=== PATIENT | male | born 1950 | race African-American/Black ===

== ENCOUNTER 2022-10-15 18:43 | Inpatient (IN) | payer OTHER, BC ==
[~2022-10-15] VITALS: Ht 188 cm; Wt 95.7 kg
[2022-10-15] MEDS ORDERED: KETOROLAC 30MG/ML VIAL IM ONE (19:30)
[2022-10-16] MEDS ORDERED: KETOROLAC 30MG/ML VIAL IM NR (00:45)
[2022-10-16] MEDS ORDERED: MORPHINE SULFATE 4 MG/ML CPJ (NOT FOR IM USE) IV NR (01:40)
[2022-10-16] MEDS ORDERED: ONDANSETRON HCL 4MG/2ML INJ IV NR (01:40)
[2022-10-16] MEDS ORDERED: SODIUM CHLORIDE 0.9% 1,000 ML IV NR (01:45)
[2022-10-16 03:33] LABS: BASOPHILS % 0.2 % (0.0-2.0); EOSINOPHILS % 0.8 % (0.0-5.0); HEMOGLOBIN. 14.9 g/dL (14.0-18.0); LYMPHOCYTES % 10.5 % (20.0-50.0); MEAN CORPUSCULAR HEMOGLOBIN 29.5 pg (28.0-32.0); MEAN PLATELET VOLUME 8.9 fl (7.4-10.4); MONOCYTES % 8.9 % (2.0-8.0); NEUTROPHILS % 79.6 % (40.0-76.0); PLATELET 306 x1000/uL (130-400); RED BLOOD CELL COUNT 5.05 mill/uL (4.7-6.1); RED CELL DISTRIBUTION WIDTH 13.9 % (11.6-14.6)
[2022-10-16 03:43] LABS: PROTHROMBIN TIME 10.7 sec (9.6-11.0)
[2022-10-16 04:05] LABS: CHLORIDE 107 mEq/L (98-107)
[2022-10-16] MEDS ORDERED: DEXTROSE 50% WATER 50ML SYRINGE IV PRN (04:15)
[2022-10-16] MEDS ORDERED: HYDROMORPHONE HCL/PF 2MG/ML CPJ IV PRN (04:15)
[2022-10-16] MEDS ORDERED: IPRATROPIUM/ALBUTEROL 0.5-3(2.5)MG/3ML NEB HHN PRN (04:15)
[2022-10-16] MEDS ORDERED: ACETAMINOPHEN 650MG SUPP PR PRN ×2 (04:15)
[2022-10-16] MEDS ORDERED: ONDANSETRON HCL 4MG/2ML INJ IV PRN (04:15)
[2022-10-16] MEDS ORDERED: NA PHOS,M-B/NA PHOS,DI-BA ENEMA 118ML PR PRN (04:15)
[2022-10-16] MEDS ORDERED: GUAIFENESIN 200MG/10ML SUGAR FREE UDC PO PRN (04:15)
[2022-10-16] MEDS ORDERED: HYDRALAZINE 20MG/ML VIAL IV PRN (04:15)
[2022-10-16 04:55] LABS: PHOSPHORUS 3.4 mg/dL (2.5-4.9)
[2022-10-16 05:09] LABS: T4 FREE 1.07 ng/dL (0.76-1.46)
[2022-10-16] MEDS ORDERED: MAGNESIUM 2 G PREMIX 50 ML IV NR ×2 (05:30→13:45)
[2022-10-16] MEDS: DEXT 5%/0.45% NACL 1000ML 1,000 ML IV SCH ×2 (05:32→18:42)
[2022-10-16 07:05] LABS: CLARITY URINE CLEAR (CLEAR); COLOR URINE YELLOW (YELLOW); KETONES URINE NEGATIVE (NEGATIVE); LEUKOCYTE ESTERASE URINE NEGATIVE (NEGATIVE); NITRITE URINE NEGATIVE (NEGATIVE); OCCULT BLOOD URINE 2+ (NEGATIVE); PROTEIN URINE 4+ (NEGATIVE); SPECIFIC GRAVITY URINE 1.027 (1.005-1.030); UROBILINOGEN URINE 0.2 E.U./dL (0.2-1.0)
[2022-10-16 07:26] LABS: *AMPHETAMINES SCREEN URINE NEGATIVE (NEGATIVE); *BARBITURATES SCREEN URINE NEGATIVE (NEGATIVE); *BENZODIAZEPINES SCREEN URINE NEGATIVE (NEGATIVE); *COCAINE SCREEN URINE NEGATIVE (NEGATIVE); CANNABINOID URINE SCREEN NEGATIVE (NEGATIVE); METHADONE URINE SCREEN NEGATIVE (NEGATIVE); OPIATES URINE SCREEN PRESUMTIVE POSITIVE (NEGATIVE); PHENCYCLIDINE URINE SCREEN NEGATIVE (NEGATIVE)
[2022-10-16] MEDS: INSULIN LISPRO 100 UNITS/ML SUBCUT SCH ×4 (08:20→21:00)
[2022-10-16] MEDS: FAMOTIDINE 20MG/2ML VIAL IV SCH (09:00)
[2022-10-16] MEDS: BLOOD SUGAR DIAGNOSTIC STRIP TEST SCH ×4 (09:00→21:32)
[2022-10-16 16:45] VITALS: BP 160/87
[2022-10-16] MEDS ORDERED: SODIUM CHLORIDE 0.45% 1,000 ML IV SCH (18:15)
[2022-10-16] MEDS ORDERED: INFLUENZA VACCINE 05/PF 0.5 ML SYRINGE IM ONE (19:45)
[2022-10-16 19:51] VITALS: BP 110/67
[2022-10-16 20:00] VITALS: BP 182/110
[2022-10-16] MEDS ORDERED: NALOXONE HCL 0.4MG/ML VIAL IV PRN (20:15)
[2022-10-16] MEDS: CARVEDILOL 12.5MG TABLET PO SCH ×2 (21:32→21:46)
[2022-10-16] MEDS: INSULIN GLARGINE 100 UNITS/ML SUBCUT SCH (22:00)
[2022-10-16] MEDS: HYDRALAZINE 10 MG in SODIUM CHLORIDE 0.9% 49.5 ML IV PRN (23:50)
[2022-10-17 01:19] VITALS: BP 174/94
[2022-10-17 04:00] VITALS: BP 160/93
[2022-10-17 06:00] VITALS: BP 138/76
[2022-10-17] MEDS: DEXT 5%/0.45% NACL 1000ML 1,000 ML IV SCH ×2 (06:05→21:43)
[2022-10-17] MEDS: BLOOD SUGAR DIAGNOSTIC STRIP TEST SCH ×4 (07:05→21:00)
[2022-10-17] MEDS: INSULIN LISPRO 100 UNITS/ML SUBCUT SCH ×7 (07:20→21:54)
[2022-10-17 07:54] LABS: HEMATOCRIT. 43.5 % (42.0-52.0); HEMOGLOBIN. 14.4 g/dL (14.0-18.0); MEAN CORPUSCULAR HEMOGLOBIN 29.2 pg (28.0-32.0); MEAN PLATELET VOLUME 9.7 fl (7.4-10.4); PLATELET 309 x1000/uL (130-400); RED BLOOD CELL COUNT 4.94 mill/uL (4.7-6.1); RED CELL DISTRIBUTION WIDTH 13.5 % (11.6-14.6)
[2022-10-17 08:00] VITALS: BP 192/113
[2022-10-17] MEDS: FAMOTIDINE 20MG/2ML VIAL IV SCH (10:11)
[2022-10-17] MEDS: CARVEDILOL 12.5MG TABLET PO SCH ×2 (10:12→21:00)
[2022-10-17] MEDS: HYDRALAZINE 10 MG in SODIUM CHLORIDE 0.9% 49.5 ML IV PRN (10:38)
[2022-10-17] MEDS ORDERED: HYDROMORPHONE HCL/PF 2MG/ML CPJ IV PRN ×2 (10:45→15:30)
[2022-10-17 12:00] VITALS: BP 198/101
[2022-10-17] MEDS ORDERED: INSULIN GLARGINE 100 UNITS/ML SUBCUT NR (13:00)
[2022-10-17] MEDS ORDERED: HYDRALAZINE 20MG/ML VIAL IV PRN (13:15)
[2022-10-17] MEDS: AMLODIPINE 10MG TABLET PO SCH (13:33)
[2022-10-17] MEDS: HYDRALAZINE HCL 100MG TABLET PO SCH ×3 (13:34→22:13)
[2022-10-17] MEDS ORDERED: EPINEPHRINE 1:1000 1 MG/ML AMP ONE (14:12)
[2022-10-17] MEDS ORDERED: MORPHINE SULFATE 10 MG/ML CPJ ONE (14:12)
[2022-10-17] MEDS ORDERED: KETOROLAC 30MG/ML VIAL ONE (14:12)
[2022-10-17] MEDS ORDERED: VANCOMYCIN HCL 1 GM/VIAL ONE (14:13)
[2022-10-17] MEDS ORDERED: SKIN ADHESIVE 0.7 GM EA TOP ONE (14:13)
[2022-10-17] MEDS ORDERED: BACITRACIN 15GM TUBE TOP ONE (14:13)
[2022-10-17] MEDS ORDERED: TRANEXAMIC ACID 1,000 MG/10 ML IV ONE (14:15)
[2022-10-17] MEDS ORDERED: ROPIVACAINE HCL 1% 20 ML VIAL EPI ONE (14:48)
[2022-10-17] MEDS ORDERED: TRANEXAMIC ACID 1,000 MG in SODIUM CHLORIDE 0.9% 100 ML IV NR ×2 (15:00→15:30)
[2022-10-17] MEDS ORDERED: PROPOFOL 200MG/20ML VIAL IV ONE (15:01)
[2022-10-17] MEDS ORDERED: MIDAZOLAM HCL 2 MG/2 ML VIAL ONE (15:07)
[2022-10-17] MEDS ORDERED: ONDANSETRON HCL 4MG/2ML INJ ONE (15:07)
[2022-10-17] MEDS ORDERED: FENTANYL CITRATE/PF 50MCG/ML 2ML VIAL ONE ×2 (15:08→16:27)
[2022-10-17] MEDS ORDERED: METOCLOPRAMIDE HCL 10MG/2ML VIAL ONE (15:10)
[2022-10-17] MEDS ORDERED: DEXAMETHASONE 4MG/ML 1ML VIAL ONE (15:10)
[2022-10-17] MEDS ORDERED: ATROPINE SULFATE 0.4MG/ML VIAL IV PRN (15:30)
[2022-10-17] MEDS ORDERED: FENTANYL CITRATE/PF 50MCG/ML 2ML VIAL IV PRN (15:30)
[2022-10-17] MEDS ORDERED: CEFAZOLIN 1000MG PREMIX 50 ML IV SCH (17:30)
[2022-10-17] MEDS ORDERED: KETOROLAC 30MG/ML VIAL IV PRN (17:30)
[2022-10-17] MEDS ORDERED: KETOROLAC 15MG/ML VIAL IV PRN (18:15)
[2022-10-17 18:34] LABS: PLATELET ESTIMATE NORMAL
[2022-10-17 20:17] VITALS: BP 148/77
[2022-10-17] MEDS: CEFAZOLIN 1000MG PREMIX 50 ML IV SCH (21:43)
[2022-10-17] MEDS: INSULIN GLARGINE 100 UNITS/ML SUBCUT SCH (21:53)
[2022-10-18 00:27] VITALS: BP 140/61
[2022-10-18 05:45] LABS: PHOSPHORUS 4.4 mg/dL (2.5-4.9)
[2022-10-18] MEDS: BLOOD SUGAR DIAGNOSTIC STRIP TEST SCH ×4 (07:20→20:36)
[2022-10-18] MEDS: INSULIN LISPRO 100 UNITS/ML SUBCUT SCH ×7 (07:50→20:36)
[2022-10-18 08:00] VITALS: BP 192/97
[2022-10-18] MEDS: CEFAZOLIN 1000MG PREMIX 50 ML IV SCH ×2 (08:42→20:17)
[2022-10-18] MEDS: FAMOTIDINE 20MG/2ML VIAL IV SCH (08:43)
[2022-10-18] MEDS: CARVEDILOL 12.5MG TABLET PO SCH ×2 (08:43→20:36)
[2022-10-18] MEDS: AMLODIPINE 10MG TABLET PO SCH ×2 (08:44→17:51)
[2022-10-18] MEDS: SODIUM CHLORIDE 0.45% 1,000 ML IV SCH ×2 (09:05→22:01)
[2022-10-18 09:14] LABS: CHLORIDE 108 mEq/L (98-107)
[2022-10-18] MEDS: HYDRALAZINE 10 MG in SODIUM CHLORIDE 0.9% 49.5 ML IV PRN ×2 (09:20→13:10)
[2022-10-18 11:24] LABS: HEMATOCRIT. 40.3 % (42.0-52.0); HEMOGLOBIN. 13.2 g/dL (14.0-18.0); MEAN CORPUSCULAR HEMOGLOBIN 29.7 pg (28.0-32.0); MEAN CORPUSCULAR VOLUME 90.9 fL (80.0-94.0); MEAN PLATELET VOLUME 9.7 fl (7.4-10.4); PLATELET 140 x1000/uL (130-400); RED BLOOD CELL COUNT 4.43 mill/uL (4.7-6.1); RED CELL DISTRIBUTION WIDTH 13.8 % (11.6-14.6)
[2022-10-18 12:00] VITALS: BP 132/73
[2022-10-18] MEDS: HYDROCODONE/ACETAMINOPHEN 5/325MG TABLET PO PRN ×2 (13:08→18:14)
[2022-10-18] MEDS: HYDRALAZINE HCL 100MG TABLET PO SCH ×2 (13:20→22:01)
[2022-10-18 14:25] LABS: PLATELET ESTIMATE NORMAL
[2022-10-18 16:00] VITALS: BP 128/66
[2022-10-18 20:10] VITALS: BP 140/79
[2022-10-18] MEDS: INSULIN GLARGINE 100 UNITS/ML SUBCUT SCH (22:00)
[2022-10-19] VITALS (8 sets, daily range): BP systolic 122–176; BP diastolic 65–90
[2022-10-19] MEDS: HYDRALAZINE HCL 100MG TABLET PO SCH ×3 (05:26→22:04)
[2022-10-19] MEDS: INSULIN LISPRO 100 UNITS/ML SUBCUT SCH ×6 (07:48→18:43)
[2022-10-19] MEDS: BLOOD SUGAR DIAGNOSTIC STRIP TEST SCH ×4 (07:48→21:48)
[2022-10-19] MEDS: CARVEDILOL 12.5MG TABLET PO SCH ×2 (08:29→19:59)
[2022-10-19] MEDS: FAMOTIDINE 20MG TABLET PO SCH (08:30)
[2022-10-19] MEDS: AMLODIPINE 10MG TABLET PO SCH ×2 (08:30→18:00)
[2022-10-19] MEDS: CEFAZOLIN 1000MG PREMIX 50 ML IV SCH ×2 (08:40→19:59)
[2022-10-19] MEDS: SODIUM CHLORIDE 0.45% 1,000 ML IV SCH (11:25)
[2022-10-19] MEDS: FUROSEMIDE 40MG TABLET PO SCH (12:55)
[2022-10-19] MEDS: INSULIN GLARGINE 100 UNITS/ML SUBCUT SCH (22:01)
[2022-10-20] VITALS: BP 135/61
[2022-10-20] MEDS: SODIUM CHLORIDE 0.45% 1,000 ML IV SCH ×2 (00:45→16:29)
[2022-10-20 04:00] VITALS: BP 147/69
[2022-10-20] MEDS: HYDRALAZINE HCL 100MG TABLET PO SCH ×2 (06:05→13:17)
[2022-10-20] MEDS: INSULIN LISPRO 100 UNITS/ML SUBCUT SCH ×6 (07:20→17:20)
[2022-10-20] MEDS: BLOOD SUGAR DIAGNOSTIC STRIP TEST SCH ×4 (07:54→21:43)
[2022-10-20 08:00] VITALS: BP 145/65
[2022-10-20] MEDS: AMLODIPINE 10MG TABLET PO SCH ×2 (09:56→18:12)
[2022-10-20] MEDS: FAMOTIDINE 20MG TABLET PO SCH (09:56)
[2022-10-20] MEDS: CARVEDILOL 12.5MG TABLET PO SCH ×2 (09:58→21:43)
[2022-10-20] MEDS: FUROSEMIDE 40MG TABLET PO SCH (09:58)
[2022-10-20 12:00] VITALS: BP 147/80
[2022-10-20 12:37] LABS: FOLIC ACID (FOLATE) SERUM 8.6 ng/mL (>5.38)
[2022-10-20 14:03] LABS: PHOSPHORUS 4.1 mg/dL (2.5-4.9)
[2022-10-20 15:27] LABS: HEMATOCRIT. 32.9 % (42.0-52.0); HEMOGLOBIN. 11.1 g/dL (14.0-18.0); MEAN CORPUSCULAR HEMOGLOBIN 29.4 pg (28.0-32.0); MEAN CORPUSCULAR VOLUME 87.3 fL (80.0-94.0); MEAN PLATELET VOLUME 9.5 fl (7.4-10.4); PLATELET 312 x1000/uL (130-400); RED BLOOD CELL COUNT 3.77 mill/uL (4.7-6.1); RED CELL DISTRIBUTION WIDTH 13.4 % (11.6-14.6)
[2022-10-20 16:00] VITALS: BP 142/70
[2022-10-20 20:00] VITALS: BP 157/74
[2022-10-20] MEDS: INSULIN GLARGINE 100 UNITS/ML SUBCUT SCH (22:00)
[2022-10-20 23:27] LABS: PLATELET ESTIMATE NORMAL
[2022-10-21] VITALS: BP 154/67
[2022-10-21] MEDS: HYDRALAZINE HCL 100MG TABLET PO SCH ×4 (00:44→23:49)
[2022-10-21 04:00] VITALS: BP 121/50
[2022-10-21] MEDS: SODIUM CHLORIDE 0.45% 1,000 ML IV SCH (04:26)
[2022-10-21] MEDS: INSULIN LISPRO 100 UNITS/ML SUBCUT SCH ×6 (07:20→18:33)
[2022-10-21 08:00] VITALS: BP 149/77
[2022-10-21 08:14] LABS: HEMATOCRIT. 35.2 % (42.0-52.0); HEMOGLOBIN. 11.8 g/dL (14.0-18.0); MEAN CORPUSCULAR HEMOGLOBIN 29.3 pg (28.0-32.0); MEAN CORPUSCULAR VOLUME 87.7 fL (80.0-94.0); MEAN PLATELET VOLUME 9.4 fl (7.4-10.4); PLATELET 343 x1000/uL (130-400); RED BLOOD CELL COUNT 4.01 mill/uL (4.7-6.1); RED CELL DISTRIBUTION WIDTH 13.1 % (11.6-14.6)
[2022-10-21] MEDS: BLOOD SUGAR DIAGNOSTIC STRIP TEST SCH ×4 (08:20→21:00)
[2022-10-21] MEDS: FAMOTIDINE 20MG TABLET PO SCH (09:23)
[2022-10-21] MEDS: AMLODIPINE 10MG TABLET PO SCH ×2 (09:24→18:05)
[2022-10-21] MEDS: FUROSEMIDE 40MG TABLET PO SCH (09:24)
[2022-10-21] MEDS: CARVEDILOL 12.5MG TABLET PO SCH ×2 (09:24→23:48)
[2022-10-21 12:00] VITALS: BP 137/66
[2022-10-21 13:23] LABS: PLATELET ESTIMATE NORMAL
[2022-10-21] MEDS: HYDROCODONE/ACETAMINOPHEN 5/325MG TABLET PO PRN (14:44)
[2022-10-21 16:00] VITALS: BP 120/51
[2022-10-21 20:00] VITALS: BP 165/85
[2022-10-21] MEDS: INSULIN GLARGINE 100 UNITS/ML SUBCUT SCH (23:51)
[2022-10-22] VITALS: BP 163/76
[2022-10-22 04:00] VITALS: BP 117/56
[2022-10-22 06:39] LABS: HEMATOCRIT. 31.7 % (42.0-52.0); HEMOGLOBIN. 10.8 g/dL (14.0-18.0); MEAN CORPUSCULAR HEMOGLOBIN 29.7 pg (28.0-32.0); MEAN CORPUSCULAR VOLUME 86.9 fL (80.0-94.0); MEAN PLATELET VOLUME 9.2 fl (7.4-10.4); PLATELET 370 x1000/uL (130-400); RED BLOOD CELL COUNT 3.64 mill/uL (4.7-6.1); RED CELL DISTRIBUTION WIDTH 13.2 % (11.6-14.6)
[2022-10-22] MEDS: HYDRALAZINE HCL 100MG TABLET PO SCH ×3 (06:48→21:03)
[2022-10-22] MEDS: BLOOD SUGAR DIAGNOSTIC STRIP TEST SCH ×4 (06:57→20:51)
[2022-10-22] MEDS: INSULIN LISPRO 100 UNITS/ML SUBCUT SCH ×6 (07:20→16:43)
[2022-10-22 08:00] VITALS: BP 125/59
[2022-10-22] MEDS: CARVEDILOL 12.5MG TABLET PO SCH ×2 (09:00→21:03)
[2022-10-22] MEDS: FUROSEMIDE 40MG TABLET PO SCH (10:26)
[2022-10-22] MEDS: FAMOTIDINE 20MG TABLET PO SCH (10:26)
[2022-10-22] MEDS: AMLODIPINE 10MG TABLET PO SCH ×2 (10:27→16:35)
[2022-10-22] MEDS: HYDROCODONE/ACETAMINOPHEN 5/325MG TABLET PO PRN (10:27)
[2022-10-22] MEDS ORDERED: SORBITOL 70% SOLN 30ML PO NR (11:45)
[2022-10-22 12:00] VITALS: BP 130/62
[2022-10-22] MEDS: ENOXAPARIN 30MG/0.3ML SYR SUBCUT SCH (12:55)
[2022-10-22] MEDS: DOCUSATE SODIUM 250MG CAPSULE PO SCH (12:55)
[2022-10-22 16:00] VITALS: BP 118/69
[2022-10-22] MEDS: INSULIN GLARGINE 100 UNITS/ML SUBCUT SCH (21:04)
[2022-10-22 21:54] LABS: PLATELET ESTIMATE NORMAL
[2022-10-23] MEDS: BLOOD SUGAR DIAGNOSTIC STRIP TEST SCH ×4 (06:47→20:59)
[2022-10-23] MEDS: HYDRALAZINE HCL 100MG TABLET PO SCH ×3 (06:48→21:03)
[2022-10-23] MEDS: INSULIN LISPRO 100 UNITS/ML SUBCUT SCH ×6 (07:20→21:04)
[2022-10-23 08:00] VITALS: BP 147/60
[2022-10-23 08:36] LABS: HEMATOCRIT. 32.7 % (42.0-52.0); HEMOGLOBIN. 10.7 g/dL (14.0-18.0); MEAN CORPUSCULAR HEMOGLOBIN 28.8 pg (28.0-32.0); MEAN PLATELET VOLUME 9.3 fl (7.4-10.4); PLATELET 403 x1000/uL (130-400); RED BLOOD CELL COUNT 3.72 mill/uL (4.7-6.1); RED CELL DISTRIBUTION WIDTH 13.3 % (11.6-14.6)
[2022-10-23 09:16] LABS: PHOSPHORUS 4.8 mg/dL (2.5-4.9)
[2022-10-23] MEDS: AMLODIPINE 10MG TABLET PO SCH ×2 (09:50→17:00)
[2022-10-23] MEDS: DOCUSATE SODIUM 250MG CAPSULE PO SCH (09:50)
[2022-10-23] MEDS: FUROSEMIDE 40MG TABLET PO SCH (09:50)
[2022-10-23] MEDS: FAMOTIDINE 20MG TABLET PO SCH (09:50)
[2022-10-23] MEDS: CYANOCOBALAMIN 100MCG TABLET PO SCH (09:50)
[2022-10-23] MEDS: CARVEDILOL 12.5MG TABLET PO SCH ×2 (09:56→21:03)
[2022-10-23 12:00] VITALS: BP 142/64
[2022-10-23] MEDS: ENOXAPARIN 30MG/0.3ML SYR SUBCUT SCH (12:00)
[2022-10-23] MEDS: SODIUM CHLORIDE 0.45% 1,000 ML IV SCH (13:45)
[2022-10-23 14:47] LABS: PLATELET ESTIMATE SLIGHTLY INCREASED
[2022-10-23 16:00] VITALS: BP 128/59
[2022-10-23 20:00] VITALS: BP 146/70
[2022-10-23] MEDS ORDERED: INSULIN GLARGINE 100 UNITS/ML SUBCUT SCH (22:00)
[2022-10-24] VITALS: BP 148/77
[2022-10-24] MEDS: SODIUM CHLORIDE 0.45% 1,000 ML IV SCH ×2 (03:05→16:25)
[2022-10-24 04:00] VITALS: BP 144/75
[2022-10-24] MEDS: HYDRALAZINE HCL 100MG TABLET PO SCH ×3 (06:04→21:10)
[2022-10-24] MEDS: INSULIN LISPRO 100 UNITS/ML SUBCUT SCH ×7 (06:40→21:00)
[2022-10-24] MEDS: BLOOD SUGAR DIAGNOSTIC STRIP TEST SCH ×4 (06:40→21:00)
[2022-10-24] MEDS: FAMOTIDINE 20MG TABLET PO SCH (09:01)
[2022-10-24] MEDS: CYANOCOBALAMIN 100MCG TABLET PO SCH (09:02)
[2022-10-24] MEDS: CARVEDILOL 12.5MG TABLET PO SCH ×2 (09:02→21:00)
[2022-10-24] MEDS: DOCUSATE SODIUM 250MG CAPSULE PO SCH (09:02)
[2022-10-24] MEDS: AMLODIPINE 10MG TABLET PO SCH ×2 (09:02→17:00)
[2022-10-24 12:00] VITALS: BP 148/65
[2022-10-24] MEDS: ENOXAPARIN 30MG/0.3ML SYR SUBCUT SCH (12:00)
[2022-10-24 12:42] LABS: HEMATOCRIT. 30.7 % (42.0-52.0); HEMOGLOBIN. 10.1 g/dL (14.0-18.0); MEAN CORPUSCULAR HEMOGLOBIN 28.9 pg (28.0-32.0); MEAN CORPUSCULAR VOLUME 87.5 fL (80.0-94.0); PLATELET 442 x1000/uL (130-400); RED CELL DISTRIBUTION WIDTH 13.1 % (11.6-14.6)
[2022-10-24 13:49] LABS: PLATELET ESTIMATE INCREASED
[2022-10-24 16:00] VITALS: BP 152/81
[2022-10-24 20:00] VITALS: BP 112/62
[2022-10-24] MEDS ORDERED: INSULIN GLARGINE 100 UNITS/ML SUBCUT SCH (22:00)
[2022-10-24] MEDS ORDERED: LACTULOSE 20G/30ML UDC PO PRN (23:00)
[2022-10-25] VITALS: BP 128/64
[2022-10-25] MEDS: SODIUM CHLORIDE 0.45% 1,000 ML IV SCH ×2 (05:45→18:06)
[2022-10-25] MEDS: HYDRALAZINE HCL 100MG TABLET PO SCH ×3 (06:46→21:02)
[2022-10-25] MEDS: INSULIN LISPRO 100 UNITS/ML SUBCUT SCH ×6 (06:53→18:08)
[2022-10-25] MEDS: BLOOD SUGAR DIAGNOSTIC STRIP TEST SCH ×4 (06:53→21:00)
[2022-10-25] MEDS: CYANOCOBALAMIN 100MCG TABLET PO SCH (07:50)
[2022-10-25 08:00] VITALS: BP 102/57
[2022-10-25 08:22] LABS: HEMATOCRIT. 30.8 % (42.0-52.0); HEMOGLOBIN. 10.2 g/dL (14.0-18.0); MEAN CORPUSCULAR HEMOGLOBIN 28.9 pg (28.0-32.0); MEAN CORPUSCULAR VOLUME 87.5 fL (80.0-94.0); MEAN PLATELET VOLUME 8.8 fl (7.4-10.4); PLATELET 445 x1000/uL (130-400); RED BLOOD CELL COUNT 3.52 mill/uL (4.7-6.1); RED CELL DISTRIBUTION WIDTH 13.1 % (11.6-14.6)
[2022-10-25] MEDS: AMLODIPINE 10MG TABLET PO SCH ×2 (09:00→17:43)
[2022-10-25] MEDS: CARVEDILOL 12.5MG TABLET PO SCH ×2 (09:00→21:02)
[2022-10-25] MEDS: FAMOTIDINE 20MG TABLET PO SCH (10:14)
[2022-10-25] MEDS: DOCUSATE SODIUM 250MG CAPSULE PO SCH (10:19)
[2022-10-25 12:00] VITALS: BP 130/57
[2022-10-25] MEDS: ENOXAPARIN 30MG/0.3ML SYR SUBCUT SCH (13:23)
[2022-10-25 16:00] VITALS: BP 127/58
[2022-10-25 17:48] LABS: PLATELET ESTIMATE INCREASED
[2022-10-25 20:00] VITALS: BP 150/76
[2022-10-25] MEDS ORDERED: INSULIN GLARGINE 100 UNITS/ML SUBCUT SCH (22:00)
[2022-10-25 22:11] LABS: PARTIAL THROMBOPLASTIN TIME 34.7 sec (23.4-31.0); PROTHROMBIN TIME 10.9 sec (9.6-11.0)
[2022-10-26] VITALS (15 sets, daily range): BP systolic 102–178; BP diastolic 47–87
[2022-10-26] MEDS: HYDRALAZINE HCL 100MG TABLET PO SCH ×3 (07:01→21:19)
[2022-10-26] MEDS: BLOOD SUGAR DIAGNOSTIC STRIP TEST SCH ×4 (07:02→21:00)
[2022-10-26] MEDS: INSULIN LISPRO 100 UNITS/ML SUBCUT SCH ×6 (07:20→18:13)
[2022-10-26 07:42] LABS: HEMATOCRIT. 29.6 % (42.0-52.0); HEMOGLOBIN. 9.7 g/dL (14.0-18.0); MEAN PLATELET VOLUME 8.1 fl (7.4-10.4); PLATELET 460 x1000/uL (130-400); RED BLOOD CELL COUNT 3.36 mill/uL (4.7-6.1)
[2022-10-26] MEDS: CARVEDILOL 12.5MG TABLET PO SCH ×2 (09:00→21:19)
[2022-10-26] MEDS: CYANOCOBALAMIN 100MCG TABLET PO SCH (09:34)
[2022-10-26] MEDS: SODIUM CHLORIDE 0.45% 1,000 ML IV SCH ×2 (09:35→21:40)
[2022-10-26] MEDS: DOCUSATE SODIUM 250MG CAPSULE PO SCH (09:35)
[2022-10-26] MEDS: AMLODIPINE 10MG TABLET PO SCH ×3 (09:36→18:36)
[2022-10-26] MEDS: FAMOTIDINE 20MG TABLET PO SCH (09:36)
[2022-10-26] MEDS: ENOXAPARIN 30MG/0.3ML SYR SUBCUT SCH (12:56)
[2022-10-26] MEDS ORDERED: LIDOCAINE HCL/PF 1% 10 MG/ML 5ML VIAL ONE (13:01)
[2022-10-26 13:17] LABS: PLATELET ESTIMATE INCREASED
[2022-10-26 14:45] LABS: HEPATITIS B SURFACE ANTIGEN NEGATIVE
[2022-10-26 19:08] LABS: TOTAL IRON BINDING CAPACITY 157 ug/dL (250-450)
[2022-10-26] MEDS: INSULIN GLARGINE 100 UNITS/ML SUBCUT SCH (21:18)
[2022-10-27] VITALS (14 sets, daily range): BP systolic 120–161; BP diastolic 51–80
[2022-10-27] MEDS: BLOOD SUGAR DIAGNOSTIC STRIP TEST SCH ×4 (06:36→20:34)
[2022-10-27] MEDS: HYDRALAZINE HCL 100MG TABLET PO SCH ×3 (06:45→22:10)
[2022-10-27] MEDS: INSULIN LISPRO 100 UNITS/ML SUBCUT SCH ×6 (06:47→18:14)
[2022-10-27 08:12] LABS: HEMATOCRIT. 27.8 % (42.0-52.0); HEMOGLOBIN. 9.4 g/dL (14.0-18.0); MEAN CORPUSCULAR HEMOGLOBIN 29.6 pg (28.0-32.0); MEAN CORPUSCULAR VOLUME 87.1 fL (80.0-94.0); MEAN PLATELET VOLUME 9.1 fl (7.4-10.4); PLATELET 431 x1000/uL (130-400); RED BLOOD CELL COUNT 3.19 mill/uL (4.7-6.1); RED CELL DISTRIBUTION WIDTH 13.2 % (11.6-14.6)
[2022-10-27] MEDS: FAMOTIDINE 20MG TABLET PO SCH (08:40)
[2022-10-27] MEDS: CYANOCOBALAMIN 1000MCG TABLET PO SCH (08:40)
[2022-10-27] MEDS: DOCUSATE SODIUM 250MG CAPSULE PO SCH (08:41)
[2022-10-27] MEDS: CARVEDILOL 12.5MG TABLET PO SCH ×2 (08:48→20:27)
[2022-10-27] MEDS: AMLODIPINE 10MG TABLET PO SCH ×2 (08:48→18:06)
[2022-10-27] MEDS: SODIUM CHLORIDE 0.45% 1,000 ML IV SCH (11:05)
[2022-10-27] MEDS: ENOXAPARIN 30MG/0.3ML SYR SUBCUT SCH (12:44)
[2022-10-27 18:06] LABS: PLATELET ESTIMATE INCREASED
[2022-10-27] MEDS: INSULIN GLARGINE 100 UNITS/ML SUBCUT SCH (22:10)
[2022-10-28] VITALS: BP 114/50
[2022-10-28] MEDS: SODIUM CHLORIDE 0.45% 1,000 ML IV SCH ×2 (01:23→13:45)
[2022-10-28 04:00] VITALS: BP 117/49
[2022-10-28] MEDS: HYDRALAZINE HCL 100MG TABLET PO SCH ×3 (06:00→21:35)
[2022-10-28] MEDS: INSULIN LISPRO 100 UNITS/ML SUBCUT SCH ×6 (07:20→18:26)
[2022-10-28 07:56] LABS: HEMATOCRIT. 26.8 % (42.0-52.0); HEMOGLOBIN. 9.2 g/dL (14.0-18.0); MEAN CORPUSCULAR HEMOGLOBIN 29.6 pg (28.0-32.0); MEAN CORPUSCULAR VOLUME 86.6 fL (80.0-94.0); PLATELET 410 x1000/uL (130-400); RED BLOOD CELL COUNT 3.09 mill/uL (4.7-6.1); RED CELL DISTRIBUTION WIDTH 12.8 % (11.6-14.6)
[2022-10-28 08:00] VITALS: BP 132/63
[2022-10-28] MEDS: BLOOD SUGAR DIAGNOSTIC STRIP TEST SCH ×4 (08:06→20:54)
[2022-10-28] MEDS: CARVEDILOL 12.5MG TABLET PO SCH ×2 (09:00→20:50)
[2022-10-28] MEDS: AMLODIPINE 10MG TABLET PO SCH ×2 (09:00→18:22)
[2022-10-28] MEDS: DOCUSATE SODIUM 250MG CAPSULE PO SCH (09:06)
[2022-10-28] MEDS: FOLIC ACID/VITAMIN B COMP W-C TABLET PO SCH (09:06)
[2022-10-28] MEDS: CYANOCOBALAMIN 1000MCG TABLET PO SCH (09:06)
[2022-10-28] MEDS: FAMOTIDINE 20MG TABLET PO SCH (09:09)
[2022-10-28 12:00] VITALS: BP 143/62
[2022-10-28] MEDS: ENOXAPARIN 30MG/0.3ML SYR SUBCUT SCH (12:00)
[2022-10-28 15:04] LABS: PLATELET ESTIMATE SLIGHTLY INCREASED
[2022-10-28 16:00] VITALS: BP 164/76
[2022-10-28 20:00] VITALS: BP 145/81
[2022-10-28] MEDS: INSULIN GLARGINE 100 UNITS/ML SUBCUT SCH (21:29)
[2022-10-29] VITALS: BP 138/55
[2022-10-29] MEDS: SODIUM CHLORIDE 0.45% 1,000 ML IV SCH (03:40)
[2022-10-29 04:00] VITALS: BP 148/69
[2022-10-29] MEDS: HYDRALAZINE HCL 100MG TABLET PO SCH ×3 (06:38→22:03)
[2022-10-29 07:19] LABS: HEMATOCRIT. 27.9 % (42.0-52.0); HEMOGLOBIN. 9.4 g/dL (14.0-18.0); MEAN CORPUSCULAR HEMOGLOBIN 29.3 pg (28.0-32.0); MEAN CORPUSCULAR VOLUME 87.1 fL (80.0-94.0); MEAN PLATELET VOLUME 8.6 fl (7.4-10.4); PLATELET 412 x1000/uL (130-400); RED BLOOD CELL COUNT 3.21 mill/uL (4.7-6.1); RED CELL DISTRIBUTION WIDTH 13.1 % (11.6-14.6)
[2022-10-29] MEDS: INSULIN LISPRO 100 UNITS/ML SUBCUT SCH ×6 (07:20→17:45)
[2022-10-29] MEDS: BLOOD SUGAR DIAGNOSTIC STRIP TEST SCH ×4 (07:20→21:00)
[2022-10-29 08:00] VITALS: BP 134/71
[2022-10-29 08:06] LABS: PHOSPHORUS 3.7 mg/dL (2.5-4.9)
[2022-10-29] MEDS: CARVEDILOL 12.5MG TABLET PO SCH ×2 (09:00→22:07)
[2022-10-29] MEDS: FOLIC ACID/VITAMIN B COMP W-C TABLET PO SCH (09:09)
[2022-10-29] MEDS: DOCUSATE SODIUM 250MG CAPSULE PO SCH (09:11)
[2022-10-29] MEDS: AMLODIPINE 10MG TABLET PO SCH ×2 (09:11→17:44)
[2022-10-29] MEDS: FAMOTIDINE 20MG TABLET PO SCH (09:11)
[2022-10-29] MEDS: CYANOCOBALAMIN 1000MCG TABLET PO SCH (09:12)
[2022-10-29 12:00] VITALS: BP 152/74
[2022-10-29] MEDS: ENOXAPARIN 30MG/0.3ML SYR SUBCUT SCH (13:11)
[2022-10-29 14:47] LABS: PLATELET ESTIMATE INCREASED
[2022-10-29 16:00] VITALS: BP 157/91
[2022-10-29 20:00] VITALS: BP 173/75
[2022-10-29] MEDS: INSULIN GLARGINE 100 UNITS/ML SUBCUT SCH (22:04)
[2022-10-30] VITALS (7 sets, daily range): BP systolic 122–155; BP diastolic 52–68
[2022-10-30] MEDS: HYDRALAZINE HCL 100MG TABLET PO SCH ×3 (06:25→21:16)
[2022-10-30] MEDS: INSULIN LISPRO 100 UNITS/ML SUBCUT SCH ×6 (07:20→18:49)
[2022-10-30] MEDS: BLOOD SUGAR DIAGNOSTIC STRIP TEST SCH ×4 (07:21→21:17)
[2022-10-30] MEDS: CARVEDILOL 12.5MG TABLET PO SCH ×2 (09:26→21:33)
[2022-10-30] MEDS: DOCUSATE SODIUM 250MG CAPSULE PO SCH (09:26)
[2022-10-30] MEDS: FOLIC ACID/VITAMIN B COMP W-C TABLET PO SCH (09:27)
[2022-10-30] MEDS: FAMOTIDINE 20MG TABLET PO SCH (09:27)
[2022-10-30] MEDS: CYANOCOBALAMIN 1000MCG TABLET PO SCH (09:27)
[2022-10-30] MEDS: AMLODIPINE 10MG TABLET PO SCH ×2 (09:27→18:45)
[2022-10-30] MEDS: ENOXAPARIN 30MG/0.3ML SYR SUBCUT SCH (14:04)
[2022-10-30] MEDS: INSULIN GLARGINE 100 UNITS/ML SUBCUT SCH (21:38)
== END 2022-10-30 22:48 | DRG 521 ==
LOC: ER 18:43 → 6EST 10-16 02:23 → EDBEDREQTM 10-16 02:27 → EDBEDREQ 10-16 02:27 → ENRESERV 10-16 15:51 → 6EST 10-18 10:46
PROVIDERS: ADMIT Hospitalist; ATTEND Hospitalist
PROC: 0SRS01A Replacement of Left Hip Joint, Femoral Surface with Metal Synthetic Substitute, Uncemented, Open Approach (ICD-10-PCS; principal; 2022-10-17)
PROC: 4A00X4Z Measurement of Central Nervous Electrical Activity, External Approach (ICD-10-PCS; 2022-10-24)
PROC: 02H633Z Insertion of Infusion Device into Right Atrium, Percutaneous Approach (ICD-10-PCS; 2022-10-26)
PROC: B548ZZA Ultrasonography of Superior Vena Cava, Guidance (ICD-10-PCS; 2022-10-26)
PROC: 5A1D70Z Performance of Urinary Filtration, Intermittent, Less than 6 Hours Per Day (ICD-10-PCS; 2022-10-26)
PROC: 5A1D70Z Performance of Urinary Filtration, Intermittent, Less than 6 Hours Per Day (ICD-10-PCS; 2022-10-27)
DX: S72.002A Fracture of unspecified part of neck of left femur, initial encounter for closed fracture (principal); N18.6 End stage renal disease; E46 Unspecified protein-calorie malnutrition; N17.9 Acute kidney failure, unspecified; I50.32 Chronic diastolic (congestive) heart failure; N25.81 Secondary hyperparathyroidism of renal origin; G93.40 Encephalopathy, unspecified; I13.2 Hypertensive heart and chronic kidney disease with heart failure and with stage 5 chronic kidney disease, or end stage renal disease; H33.20 Serous retinal detachment, unspecified eye; K56.7 Ileus, unspecified; E83.42 Hypomagnesemia; Z20.822 Contact with and (suspected) exposure to COVID-19; I16.0 Hypertensive urgency; E11.65 Type 2 diabetes mellitus with hyperglycemia; E87.5 Hyperkalemia; E11.22 Type 2 diabetes mellitus with diabetic chronic kidney disease; E78.5 Hyperlipidemia, unspecified; Z99.2 Dependence on renal dialysis; Z90.79 Acquired absence of other genital organ(s); Z68.27 Body mass index [BMI] 27.0-27.9, adult; Z83.3 Family history of diabetes mellitus; Z82.49 Family history of ischemic heart disease and other diseases of the circulatory system; Z91.199 Patient's noncompliance with other medical treatment and regimen due to unspecified reason; W01.0XXA Fall on same level from slipping, tripping and stumbling without subsequent striking against object, initial encounter; Y93.89 Activity, other specified; Y92.009 Unspecified place in unspecified non-institutional (private) residence as the place of occurrence of the external cause; Y99.8 Other external cause status; D63.1 Anemia in chronic kidney disease; D72.825 Bandemia; E11.649 Type 2 diabetes mellitus with hypoglycemia without coma; G89.29 Other chronic pain; R04.0 Epistaxis; Z80.42 Family history of malignant neoplasm of prostate; Z85.46 Personal history of malignant neoplasm of prostate
CPT/HCPCS: 36415; 36556; 71045; 72170; 73502; 73552; 74018; 76937; 80048; 80053; 80061; 80305; 81003; 82306; 82533; 82570; 82607; 82746; 82962; 83036; 83540; 83550; 83735; 83935; 83970; 84100; 84134; 84300; 84439; 84443; 84484; 85025; 86705; 86709; 86803; 86850; 86900; 87340; 87426; 88311; 90935; 93005; 93306; 93970; 95816; 97110; 97116; 97162; 97166; 97530; 97535; 99285; C1752; C1893; C9803; J0360; J0690; J1100; J1170; J1642; J1650; J1815; J1885; J2250; J2270; J2405; J2704; J2765; J2795; J3010; J3370; J3475; J3490; J7030; J7050; C1776

== ENCOUNTER 2022-11-13 03:26 | Inpatient (IN) | payer OTHER, BC ==
[~2022-11-13] VITALS: Ht 188 cm; Wt 104.3 kg
[2022-11-13] VITALS (15 sets, daily range): BP systolic 116–186; BP diastolic 67–80
[2022-11-13] MEDS ORDERED: FUROSEMIDE 40MG/4ML VIAL IVP NR (05:30)
[2022-11-13 05:43] LABS: HEMOGLOBIN. 8.9 g/dL (14.0-18.0); MEAN CORPUSCULAR HEMOGLOBIN 29.1 pg (28.0-32.0); MEAN CORPUSCULAR VOLUME 88.2 fL (80.0-94.0); MEAN PLATELET VOLUME 8.5 fl (7.4-10.4); PLATELET 485 x1000/uL (130-400); RED BLOOD CELL COUNT 3.07 mill/uL (4.7-6.1); RED CELL DISTRIBUTION WIDTH 14.3 % (11.6-14.6)
[2022-11-13 05:57] LABS: CHLORIDE 101 mEq/L (98-107)
[2022-11-13] MEDS ORDERED: INSULIN REGULAR (HUMULIN R) 300UNITS/3ML VIAL IV NR (08:15)
[2022-11-13] MEDS ORDERED: SODIUM BICARBONATE 8.4% 1 MEQ/ML 50ML SYR IV NR (08:15)
[2022-11-13] MEDS ORDERED: DEXTROSE 50% WATER 50ML SYRINGE IV NR (08:15)
[2022-11-13] MEDS ORDERED: ALBUTEROL (0.083%) 2.5MG/3ML NEB HHN NR (08:15)
[2022-11-13 09:02] LABS: NUCLEATED RED BLOOD CELLS 1 /100 WBC; PLATELET ESTIMATE INCREASED
[2022-11-13] MEDS ORDERED: CALCIUM GLUCONATE 100MG/ML 10ML VIAL IV NR (09:58)
[2022-11-13] MEDS ORDERED: CEFTRIAXONE 1 G PREMIX 50 ML IV NR (10:00)
[2022-11-13] MEDS ORDERED: AZITHROMYCIN 500MG/250ML 250 ML IV NR (10:30)
[2022-11-13] MEDS ORDERED: GUAIFENESIN 200MG/10ML SUGAR FREE UDC PO PRN (12:15)
[2022-11-13] MEDS ORDERED: ACETAMINOPHEN 325MG TABLET PO PRN (12:15)
[2022-11-13] MEDS ORDERED: CLONIDINE 0.1MG TABLET PO PRN (12:15)
[2022-11-13] MEDS ORDERED: MAGNESIUM/ALUMINUM HYDROXIDE/SIMETHICONE 30ML UDC PO PRN (12:15)
[2022-11-13] MEDS ORDERED: TRAMADOL 50MG TABLET PO PRN (12:15)
[2022-11-13] MEDS ORDERED: DOCUSATE SODIUM 100MG CAPSULE PO PRN (12:15)
[2022-11-13] MEDS ORDERED: ONDANSETRON HCL 4MG/2ML INJ IV PRN (12:15)
[2022-11-13] MEDS ORDERED: NALOXONE HCL 0.4MG/ML VIAL IV PRN (12:30)
[2022-11-13 12:51] LABS: PROTHROMBIN TIME 10.8 sec (9.6-11.0)
[2022-11-13] MEDS ORDERED: DEXTROSE 50% WATER 50ML SYRINGE IV PRN (15:00)
[2022-11-13] MEDS: BLOOD SUGAR DIAGNOSTIC STRIP TEST SCH ×2 (17:08→20:39)
[2022-11-13] MEDS ORDERED: INSULIN LISPRO 100 UNITS/ML SUBCUT SCH (17:10)
[2022-11-13] MEDS: ENOXAPARIN 30MG/0.3ML SYR SUBCUT SCH (17:39)
[2022-11-13] MEDS ORDERED: ALBUMIN HUMAN 25GM/100ML (25%) IV NR (19:00)
[2022-11-13] MEDS: HYDRALAZINE HCL 50MG TABLET PO SCH (21:13)
[2022-11-13] MEDS: INSULIN GLARGINE 100 UNITS/ML SUBCUT SCH (21:14)
[2022-11-14] VITALS (19 sets, daily range): BP systolic 126–158; BP diastolic 63–84
[2022-11-14 04:26] LABS: HEMATOCRIT. 25.3 % (42.0-52.0); HEMOGLOBIN. 8.5 g/dL (14.0-18.0); MEAN CORPUSCULAR VOLUME 86.8 fL (80.0-94.0); MEAN PLATELET VOLUME 8.4 fl (7.4-10.4); PLATELET 466 x1000/uL (130-400); RED BLOOD CELL COUNT 2.92 mill/uL (4.7-6.1); RED CELL DISTRIBUTION WIDTH 14.5 % (11.6-14.6)
[2022-11-14 04:28] LABS: CHLORIDE 104 mEq/L (98-107)
[2022-11-14 04:39] LABS: HDL CHOLESTEROL 46 mg/dL (40-59); LDL CHOLESTEROL 29 mg/dL (5-100); PHOSPHORUS 5.1 mg/dL (2.5-4.9); TOTAL IRON BINDING CAPACITY 217 ug/dL (250-450)
[2022-11-14 05:13] LABS: PLATELET ESTIMATE NORMAL
[2022-11-14] MEDS: INSULIN LISPRO 100 UNITS/ML SUBCUT SCH ×4 (05:51→18:59)
[2022-11-14] MEDS: HYDRALAZINE HCL 50MG TABLET PO SCH ×3 (05:51→22:45)
[2022-11-14] MEDS: BLOOD SUGAR DIAGNOSTIC STRIP TEST SCH ×4 (05:52→21:00)
[2022-11-14] MEDS: INSULIN LISPRO (LOW DOSE) 100 UNITS/ML SUBCUT SCH ×3 (05:52→16:40)
[2022-11-14] MEDS ORDERED: INSULIN LISPRO 100 UNITS/ML SUBCUT SCH (06:40)
[2022-11-14] MEDS ORDERED: INFLUENZA VACCINE 05/PF 0.5 ML SYRINGE IM ONE (09:00)
[2022-11-14] MEDS ORDERED: CEFTRIAXONE 1,000 MG in DEXTROSE 5% WATER 50 ML IV SCH (09:00)
[2022-11-14] MEDS: AZITHROMYCIN 500 MG in DEXT 5% WATER 250 ML IV SCH (09:40)
[2022-11-14] MEDS: FUROSEMIDE 40MG/4 ML UDC PO SCH (09:40)
[2022-11-14] MEDS: FOLIC ACID/VITAMIN B COMP W-C TABLET PO SCH (09:40)
[2022-11-14] MEDS: AMLODIPINE 10MG TABLET PO SCH (09:40)
[2022-11-14] MEDS: CEFTRIAXONE 1,000 MG in DEXTROSE 5% WATER 50 ML IV SCH (09:40)
[2022-11-14] MEDS ORDERED: AZITHROMYCIN 500 MG in DEXT 5% WATER 250 ML IV SCH (10:00)
[2022-11-14] MEDS ORDERED: NEPVIT MT (12:57)
[2022-11-14] MEDS ORDERED: ATOR20TA65 MT (12:57)
[2022-11-14] MEDS ORDERED: INSU200I4 SQ (12:57)
[2022-11-14] MEDS ORDERED: CLON0.1T PO (12:57)
[2022-11-14] MEDS ORDERED: HYDR100T26 MT (12:57)
[2022-11-14] MEDS ORDERED: AMLO10TA80 MT (12:57)
[2022-11-14] MEDS ORDERED: FURO40TA5 MT (12:57)
[2022-11-14] MEDS ORDERED: CARV25TA47 MT (12:57)
[2022-11-14] MEDS ORDERED: INSU100I51 (12:57)
[2022-11-14] MEDS ORDERED: DOCU-138 MT (12:57)
[2022-11-14] MEDS: ENOXAPARIN 30MG/0.3ML SYR SUBCUT SCH (15:12)
[2022-11-14] MEDS: CALCIUM ACETATE 667MG CAPSULE PO SCH ×2 (15:12→18:51)
[2022-11-14] MEDS: FERROUS SULFATE 325MG TABLET PO SCH ×2 (15:13→18:51)
[2022-11-14] MEDS: INSULIN GLARGINE 100 UNITS/ML SUBCUT SCH (22:46)
[2022-11-15] VITALS: BP 152/73
[2022-11-15 04:00] VITALS: BP 155/75
[2022-11-15] MEDS: BLOOD SUGAR DIAGNOSTIC STRIP TEST SCH ×4 (05:44→21:00)
[2022-11-15] MEDS: HYDRALAZINE HCL 50MG TABLET PO SCH ×3 (06:00→21:14)
[2022-11-15] MEDS: INSULIN LISPRO (LOW DOSE) 100 UNITS/ML SUBCUT SCH ×4 (06:01→18:16)
[2022-11-15] MEDS: INSULIN LISPRO 100 UNITS/ML SUBCUT SCH ×3 (06:02→18:27)
[2022-11-15 08:00] VITALS: BP 147/70
[2022-11-15] MEDS ORDERED: FUROSEMIDE 40MG/4ML VIAL IVP NR (08:00)
[2022-11-15 08:13] LABS: HEMATOCRIT. 27.2 % (42.0-52.0); HEMOGLOBIN. 9.3 g/dL (14.0-18.0); MEAN CORPUSCULAR HEMOGLOBIN 29.8 pg (28.0-32.0); MEAN PLATELET VOLUME 9.2 fl (7.4-10.4); PLATELET 490 x1000/uL (130-400); RED BLOOD CELL COUNT 3.13 mill/uL (4.7-6.1); RED CELL DISTRIBUTION WIDTH 14.7 % (11.6-14.6)
[2022-11-15] MEDS: FERROUS SULFATE 325MG TABLET PO SCH ×3 (09:41→18:16)
[2022-11-15] MEDS: CALCIUM ACETATE 667MG CAPSULE PO SCH ×3 (09:41→18:13)
[2022-11-15] MEDS: AMLODIPINE 10MG TABLET PO SCH (09:41)
[2022-11-15] MEDS: FOLIC ACID/VITAMIN B COMP W-C TABLET PO SCH (09:41)
[2022-11-15] MEDS: FUROSEMIDE 40MG/4 ML UDC PO SCH (09:41)
[2022-11-15] MEDS: CEFTRIAXONE 1,000 MG in DEXTROSE 5% WATER 50 ML IV SCH (09:42)
[2022-11-15] MEDS: AZITHROMYCIN 500 MG in DEXT 5% WATER 250 ML IV SCH (09:42)
[2022-11-15] MEDS: ISOSORBIDE MONONITRATE 60MG TABLET SR 24HR PO SCH (09:45)
[2022-11-15 12:00] VITALS: BP 150/71
[2022-11-15] MEDS: ENOXAPARIN 30MG/0.3ML SYR SUBCUT SCH (13:05)
[2022-11-15 16:00] VITALS: BP 145/73
[2022-11-15 17:32] LABS: HEPATITIS B SURFACE ANTIGEN NEGATIVE
[2022-11-15 17:39] LABS: PLATELET ESTIMATE INCREASED
[2022-11-15 20:00] VITALS: BP 135/58
[2022-11-15] MEDS: EPOETIN ALFA-EPBX 4,000 UNIT/ML VIAL SUBCUT SCH (21:13)
[2022-11-15] MEDS: INSULIN GLARGINE 100 UNITS/ML SUBCUT SCH (21:14)
[2022-11-16] VITALS (17 sets, daily range): BP systolic 48–178; BP diastolic 68–90
[2022-11-16] MEDS: INSULIN LISPRO (LOW DOSE) 100 UNITS/ML SUBCUT SCH ×3 (06:08→16:40)
[2022-11-16] MEDS: HYDRALAZINE HCL 50MG TABLET PO SCH ×3 (06:11→20:43)
[2022-11-16] MEDS: BLOOD SUGAR DIAGNOSTIC STRIP TEST SCH ×4 (06:22→20:41)
[2022-11-16] MEDS: INSULIN LISPRO 100 UNITS/ML SUBCUT SCH ×3 (06:22→18:42)
[2022-11-16 07:10] LABS: HEMATOCRIT. 27.5 % (42.0-52.0); HEMOGLOBIN. 9.2 g/dL (14.0-18.0); MEAN CORPUSCULAR HEMOGLOBIN 29.3 pg (28.0-32.0); MEAN CORPUSCULAR VOLUME 87.9 fL (80.0-94.0); PLATELET 464 x1000/uL (130-400); RED BLOOD CELL COUNT 3.13 mill/uL (4.7-6.1); RED CELL DISTRIBUTION WIDTH 14.6 % (11.6-14.6)
[2022-11-16] MEDS: AMLODIPINE 10MG TABLET PO SCH ×2 (09:00→10:38)
[2022-11-16] MEDS: ISOSORBIDE MONONITRATE 60MG TABLET SR 24HR PO SCH (09:00)
[2022-11-16] MEDS: FOLIC ACID/VITAMIN B COMP W-C TABLET PO SCH (09:06)
[2022-11-16] MEDS: CALCIUM ACETATE 667MG CAPSULE PO SCH ×3 (09:06→18:43)
[2022-11-16] MEDS: AZITHROMYCIN 500 MG TABLET PO SCH (09:06)
[2022-11-16] MEDS: FERROUS SULFATE 325MG TABLET PO SCH ×2 (09:06→18:43)
[2022-11-16] MEDS: FUROSEMIDE 40MG/4 ML UDC PO SCH (09:15)
[2022-11-16] MEDS: CEFTRIAXONE 1,000 MG in DEXTROSE 5% WATER 50 ML IV SCH (10:38)
[2022-11-16] MEDS ORDERED: DIPHENHYDRAMINE 50MG CAPSULE PO PRN (11:15)
[2022-11-16 13:02] LABS: PLATELET ESTIMATE INCREASED
[2022-11-16] MEDS: ENOXAPARIN 30MG/0.3ML SYR SUBCUT SCH (13:12)
[2022-11-16 14:50] LABS: INR 1.1; PROTHROMBIN TIME 11.3 sec (9.6-11.0)
[2022-11-16] MEDS: INSULIN GLARGINE 100 UNITS/ML SUBCUT SCH (20:43)
[2022-11-17] VITALS (18 sets, daily range): BP systolic 110–161; BP diastolic 64–81
[2022-11-17] MEDS: HYDRALAZINE HCL 50MG TABLET PO SCH ×3 (06:08→22:58)
[2022-11-17] MEDS: INSULIN LISPRO (LOW DOSE) 100 UNITS/ML SUBCUT SCH ×3 (06:08→16:40)
[2022-11-17] MEDS: BLOOD SUGAR DIAGNOSTIC STRIP TEST SCH ×4 (06:09→21:00)
[2022-11-17] MEDS: INSULIN LISPRO 100 UNITS/ML SUBCUT SCH ×3 (06:09→18:15)
[2022-11-17 08:34] LABS: BASOPHILS % 1.1 % (0.0-2.0); HEMATOCRIT. 29.4 % (42.0-52.0); HEMOGLOBIN. 9.9 g/dL (14.0-18.0); LYMPHOCYTES % 9.2 % (20.0-50.0); MEAN CORPUSCULAR HEMOGLOBIN 29.6 pg (28.0-32.0); MEAN CORPUSCULAR VOLUME 87.8 fL (80.0-94.0); MEAN PLATELET VOLUME 8.8 fl (7.4-10.4); MONOCYTES % 14.4 % (2.0-8.0); NEUTROPHILS % 72.3 % (40.0-76.0); PLATELET 492 x1000/uL (130-400); RED BLOOD CELL COUNT 3.35 mill/uL (4.7-6.1); RED CELL DISTRIBUTION WIDTH 14.7 % (11.6-14.6)
[2022-11-17 08:57] LABS: PHOSPHORUS 3.1 mg/dL (2.5-4.9)
[2022-11-17] MEDS: FERROUS SULFATE 325MG TABLET PO SCH ×2 (09:48→18:14)
[2022-11-17] MEDS: ISOSORBIDE MONONITRATE 60MG TABLET SR 24HR PO SCH (09:49)
[2022-11-17] MEDS: FOLIC ACID/VITAMIN B COMP W-C TABLET PO SCH (09:49)
[2022-11-17] MEDS: CEFTRIAXONE 1,000 MG in DEXTROSE 5% WATER 50 ML IV SCH (09:52)
[2022-11-17] MEDS: CALCIUM ACETATE 667MG CAPSULE PO SCH ×3 (09:52→18:14)
[2022-11-17] MEDS: AZITHROMYCIN 500 MG TABLET PO SCH (09:52)
[2022-11-17] MEDS: FUROSEMIDE 40MG/4 ML UDC PO SCH (09:53)
[2022-11-17] MEDS: AMLODIPINE 10MG TABLET PO SCH (09:56)
[2022-11-17] MEDS: ENOXAPARIN 30MG/0.3ML SYR SUBCUT SCH (13:24)
[2022-11-17] MEDS: EPOETIN ALFA-EPBX 4,000 UNIT/ML VIAL SUBCUT SCH (23:00)
[2022-11-17] MEDS: INSULIN GLARGINE 100 UNITS/ML SUBCUT SCH (23:01)
[2022-11-18] VITALS: BP 140/68
[2022-11-18 04:00] VITALS: BP 146/92
[2022-11-18] MEDS: HYDRALAZINE HCL 50MG TABLET PO SCH ×3 (05:40→21:17)
[2022-11-18] MEDS: BLOOD SUGAR DIAGNOSTIC STRIP TEST SCH ×4 (05:40→21:08)
[2022-11-18] MEDS: INSULIN LISPRO (LOW DOSE) 100 UNITS/ML SUBCUT SCH ×3 (05:41→16:40)
[2022-11-18] MEDS: INSULIN LISPRO 100 UNITS/ML SUBCUT SCH ×3 (05:45→16:40)
[2022-11-18] MEDS: FERROUS SULFATE 325MG TABLET PO SCH ×2 (07:10→17:10)
[2022-11-18 08:00] VITALS: BP 147/75
[2022-11-18] MEDS: CALCIUM ACETATE 667MG CAPSULE PO SCH ×3 (08:46→18:13)
[2022-11-18] MEDS: CEFTRIAXONE 1,000 MG in DEXTROSE 5% WATER 50 ML IV SCH (08:46)
[2022-11-18] MEDS: AMLODIPINE 10MG TABLET PO SCH (10:28)
[2022-11-18] MEDS: FUROSEMIDE 40MG/4 ML UDC PO SCH (10:28)
[2022-11-18] MEDS: FOLIC ACID/VITAMIN B COMP W-C TABLET PO SCH (10:28)
[2022-11-18] MEDS: ISOSORBIDE MONONITRATE 60MG TABLET SR 24HR PO SCH (10:32)
[2022-11-18 12:00] VITALS: BP 137/70
[2022-11-18] MEDS: ENOXAPARIN 30MG/0.3ML SYR SUBCUT SCH (13:15)
[2022-11-18 16:00] VITALS: BP 147/72
[2022-11-18 20:00] VITALS: BP 125/65
[2022-11-18] MEDS: INSULIN GLARGINE 100 UNITS/ML SUBCUT SCH (21:14)
[2022-11-19] VITALS (27 sets, daily range): BP systolic 121–147; BP diastolic 65–82
[2022-11-19] MEDS: BLOOD SUGAR DIAGNOSTIC STRIP TEST SCH ×4 (05:47→20:59)
[2022-11-19] MEDS: INSULIN LISPRO (LOW DOSE) 100 UNITS/ML SUBCUT SCH ×3 (05:55→17:44)
[2022-11-19] MEDS: HYDRALAZINE HCL 50MG TABLET PO SCH ×3 (05:56→21:04)
[2022-11-19] MEDS: INSULIN LISPRO 100 UNITS/ML SUBCUT SCH ×3 (05:56→17:45)
[2022-11-19 06:08] LABS: BASOPHILS % 0.9 % (0.0-2.0); EOSINOPHILS % 7.5 % (0.0-5.0); HEMATOCRIT. 25.8 % (42.0-52.0); HEMOGLOBIN. 8.7 g/dL (14.0-18.0); LYMPHOCYTES % 13.3 % (20.0-50.0); MEAN CORPUSCULAR HEMOGLOBIN 29.7 pg (28.0-32.0); MEAN CORPUSCULAR VOLUME 87.9 fL (80.0-94.0); MEAN PLATELET VOLUME 8.9 fl (7.4-10.4); MONOCYTES % 12.5 % (2.0-8.0); NEUTROPHILS % 65.8 % (40.0-76.0); PLATELET 433 x1000/uL (130-400); RED BLOOD CELL COUNT 2.93 mill/uL (4.7-6.1); RED CELL DISTRIBUTION WIDTH 14.3 % (11.6-14.6)
[2022-11-19] MEDS ORDERED: LIDOCAINE HCL 1% 10 MG/ML 10ML VIAL ONE (07:58)
[2022-11-19] MEDS ORDERED: HEPARIN 1000 UNITS/ML 10ML ONE (07:58)
[2022-11-19] MEDS ORDERED: CEFAZOLIN 1000MG PREMIX 50 ML IV ONE (08:09)
[2022-11-19] MEDS ORDERED: FENTANYL CITRATE/PF 50MCG/ML 2ML VIAL IV NR (08:09)
[2022-11-19] MEDS ORDERED: FENTANYL CITRATE/PF 50MCG/ML 2ML VIAL ONE (08:09)
[2022-11-19] MEDS ORDERED: CEFAZOLIN 1000MG PREMIX 50 ML IV NR (09:00)
[2022-11-19] MEDS: FOLIC ACID/VITAMIN B COMP W-C TABLET PO SCH (09:40)
[2022-11-19] MEDS: CALCIUM ACETATE 667MG CAPSULE PO SCH ×3 (09:41→17:34)
[2022-11-19] MEDS: AMLODIPINE 10MG TABLET PO SCH (09:41)
[2022-11-19] MEDS: FUROSEMIDE 40MG/4 ML UDC PO SCH (09:41)
[2022-11-19] MEDS: FERROUS SULFATE 325MG TABLET PO SCH ×2 (09:41→17:34)
[2022-11-19] MEDS: ISOSORBIDE MONONITRATE 60MG TABLET SR 24HR PO SCH (09:56)
[2022-11-19] MEDS: ENOXAPARIN 30MG/0.3ML SYR SUBCUT SCH (12:52)
[2022-11-19] MEDS: INSULIN GLARGINE 100 UNITS/ML SUBCUT SCH (21:35)
[2022-11-20] VITALS: BP 134/69
[2022-11-20 04:00] VITALS: BP 134/69
[2022-11-20] MEDS: BLOOD SUGAR DIAGNOSTIC STRIP TEST SCH ×4 (05:48→21:47)
[2022-11-20] MEDS: HYDRALAZINE HCL 50MG TABLET PO SCH ×3 (05:51→21:47)
[2022-11-20] MEDS: FERROUS SULFATE 325MG TABLET PO SCH ×2 (05:51→18:10)
[2022-11-20] MEDS: CALCIUM ACETATE 667MG CAPSULE PO SCH ×3 (05:52→18:10)
[2022-11-20] MEDS: INSULIN LISPRO (LOW DOSE) 100 UNITS/ML SUBCUT SCH ×3 (06:02→18:12)
[2022-11-20] MEDS: INSULIN LISPRO 100 UNITS/ML SUBCUT SCH ×3 (06:03→18:11)
[2022-11-20 06:56] LABS: BASOPHILS % 0.9 % (0.0-2.0); EOSINOPHILS % 5.3 % (0.0-5.0); HEMATOCRIT. 26.4 % (42.0-52.0); HEMOGLOBIN. 8.7 g/dL (14.0-18.0); LYMPHOCYTES % 14.1 % (20.0-50.0); MEAN CORPUSCULAR HEMOGLOBIN 28.9 pg (28.0-32.0); MEAN CORPUSCULAR VOLUME 87.6 fL (80.0-94.0); MEAN PLATELET VOLUME 8.8 fl (7.4-10.4); MONOCYTES % 13.2 % (2.0-8.0); NEUTROPHILS % 66.5 % (40.0-76.0); PLATELET 422 x1000/uL (130-400); RED BLOOD CELL COUNT 3.02 mill/uL (4.7-6.1)
[2022-11-20 08:19] VITALS: BP 154/70
[2022-11-20] MEDS: FOLIC ACID/VITAMIN B COMP W-C TABLET PO SCH (08:33)
[2022-11-20] MEDS: AMLODIPINE 10MG TABLET PO SCH (08:33)
[2022-11-20] MEDS: ISOSORBIDE MONONITRATE 60MG TABLET SR 24HR PO SCH (08:33)
[2022-11-20] MEDS: FUROSEMIDE 40MG/4 ML UDC PO SCH (08:33)
[2022-11-20 12:00] VITALS: BP 133/71
[2022-11-20] MEDS: ENOXAPARIN 30MG/0.3ML SYR SUBCUT SCH (13:29)
[2022-11-20 16:00] VITALS: BP 141/63
[2022-11-20 20:00] VITALS: BP 138/69
[2022-11-20] MEDS: EPOETIN ALFA-EPBX 4,000 UNIT/ML VIAL SUBCUT SCH (21:48)
[2022-11-20] MEDS: INSULIN GLARGINE 100 UNITS/ML SUBCUT SCH (22:24)
[2022-11-21] VITALS (18 sets, daily range): BP systolic 120–149; BP diastolic 61–86
[2022-11-21 05:47] LABS: PHOSPHORUS 3.7 mg/dL (2.5-4.9)
[2022-11-21] MEDS: INSULIN LISPRO (LOW DOSE) 100 UNITS/ML SUBCUT SCH ×2 (06:03→12:43)
[2022-11-21] MEDS: BLOOD SUGAR DIAGNOSTIC STRIP TEST SCH ×2 (06:04→12:33)
[2022-11-21] MEDS: INSULIN LISPRO 100 UNITS/ML SUBCUT SCH ×2 (06:05→12:43)
[2022-11-21] MEDS: CALCIUM ACETATE 667MG CAPSULE PO SCH ×2 (06:06→12:41)
[2022-11-21] MEDS: FERROUS SULFATE 325MG TABLET PO SCH (06:06)
[2022-11-21] MEDS: HYDRALAZINE HCL 50MG TABLET PO SCH ×2 (06:08→14:40)
[2022-11-21 06:14] LABS: BASOPHILS % 0.8 % (0.0-2.0); EOSINOPHILS % 6.3 % (0.0-5.0); HEMATOCRIT. 27.2 % (42.0-52.0); HEMOGLOBIN. 9.1 g/dL (14.0-18.0); LYMPHOCYTES % 14.1 % (20.0-50.0); MEAN CORPUSCULAR HEMOGLOBIN 29.3 pg (28.0-32.0); MEAN CORPUSCULAR VOLUME 87.4 fL (80.0-94.0); MEAN PLATELET VOLUME 8.4 fl (7.4-10.4); MONOCYTES % 14.5 % (2.0-8.0); NEUTROPHILS % 64.3 % (40.0-76.0); PLATELET 426 x1000/uL (130-400); RED BLOOD CELL COUNT 3.11 mill/uL (4.7-6.1); RED CELL DISTRIBUTION WIDTH 13.8 % (11.6-14.6)
[2022-11-21] MEDS: FUROSEMIDE 40MG/4 ML UDC PO SCH (09:00)
[2022-11-21] MEDS: ISOSORBIDE MONONITRATE 60MG TABLET SR 24HR PO SCH (09:00)
[2022-11-21] MEDS: AMLODIPINE 10MG TABLET PO SCH (09:00)
[2022-11-21] MEDS: FOLIC ACID/VITAMIN B COMP W-C TABLET PO SCH (09:38)
[2022-11-21] MEDS: ENOXAPARIN 30MG/0.3ML SYR SUBCUT SCH (12:41)
== END 2022-11-21 17:45 | disposition home or self-care (01) | DRG 193 ==
LOC: ER 03:35 → 7EST 08:03 → EDBEDREQTM 08:09 → EDBEDREQ 08:09
PROVIDERS: ADMIT Hospitalist; ATTEND Hospitalist
PROC: 02H633Z Insertion of Infusion Device into Right Atrium, Percutaneous Approach (ICD-10-PCS; principal; 2022-11-13)
PROC: 5A1D70Z Performance of Urinary Filtration, Intermittent, Less than 6 Hours Per Day (ICD-10-PCS; 2022-11-13)
PROC: 5A1D70Z Performance of Urinary Filtration, Intermittent, Less than 6 Hours Per Day (ICD-10-PCS; 2022-11-14)
PROC: 5A1D70Z Performance of Urinary Filtration, Intermittent, Less than 6 Hours Per Day (ICD-10-PCS; 2022-11-16)
PROC: 5A1D70Z Performance of Urinary Filtration, Intermittent, Less than 6 Hours Per Day (ICD-10-PCS; 2022-11-17)
PROC: 02PAX3Z Removal of Infusion Device from Heart, External Approach (ICD-10-PCS; 2022-11-19)
PROC: 0JH63XZ Insertion of Tunneled Vascular Access Device into Chest Subcutaneous Tissue and Fascia, Percutaneous Approach (ICD-10-PCS; 2022-11-19)
PROC: 02HV33Z Insertion of Infusion Device into Superior Vena Cava, Percutaneous Approach (ICD-10-PCS; 2022-11-19)
PROC: B518ZZA Fluoroscopy of Superior Vena Cava, Guidance (ICD-10-PCS; 2022-11-19)
PROC: 5A1D70Z Performance of Urinary Filtration, Intermittent, Less than 6 Hours Per Day (ICD-10-PCS; 2022-11-19)
PROC: 5A1D80Z Performance of Urinary Filtration, Prolonged Intermittent, 6-18 hours Per Day (ICD-10-PCS; 2022-11-21)
DX: J18.9 Pneumonia, unspecified organism (principal); I50.33 Acute on chronic diastolic (congestive) heart failure; N18.6 End stage renal disease; I13.2 Hypertensive heart and chronic kidney disease with heart failure and with stage 5 chronic kidney disease, or end stage renal disease; E44.0 Moderate protein-calorie malnutrition; N17.9 Acute kidney failure, unspecified; E11.22 Type 2 diabetes mellitus with diabetic chronic kidney disease; E87.5 Hyperkalemia; Z96.642 Presence of left artificial hip joint; Z20.822 Contact with and (suspected) exposure to COVID-19; D63.1 Anemia in chronic kidney disease; E11.65 Type 2 diabetes mellitus with hyperglycemia; E78.5 Hyperlipidemia, unspecified; Z85.46 Personal history of malignant neoplasm of prostate; Z90.79 Acquired absence of other genital organ(s); Z99.2 Dependence on renal dialysis; Z80.42 Family history of malignant neoplasm of prostate; Z82.49 Family history of ischemic heart disease and other diseases of the circulatory system; Z83.3 Family history of diabetes mellitus; Z68.29 Body mass index [BMI] 29.0-29.9, adult
CPT/HCPCS: 36415; 36556; 36558; 36589; 71045; 74018; 76937; 77001; 80048; 80053; 80061; 82570; 82962; 83036; 83540; 83550; 83735; 83880; 83970; 84100; 84300; 84484; 85025; 86705; 86709; 86803; 87340; 87426; 90686; 90935; 93005; 93970; 97110; 97116; 97162; 97166; 97530; 99152; 99153; 99291; C1750; C1752; C1769; C1892; C9803; J0456; J0610; J0690; J0696; J0885; J1642; J1644; J1650; J1815; J1940; J3010; J3490; J7060; P9047; G0500

== ENCOUNTER 2023-01-01 04:41 | Inpatient (IN) | payer OTHER, BC ==
[~2023-01-01] VITALS: Ht 188 cm; Wt 91.2 kg
[~2023-01-01 04:41] MED LIST: AMLO10TA80 MT; ATOR20TA65 MT; CARV25TA47 MT; CLON0.1T PO; DOCU-138 MT; FURO40TA5 MT; HYDR100T26 MT; INSU100I51; INSU200I4 SQ; NEPVIT MT
[2023-01-01 05:41] LABS: HEMATOCRIT. 34.1 % (42.0-52.0); HEMOGLOBIN. 11.3 g/dL (14.0-18.0); MEAN CORPUSCULAR HEMOGLOBIN 28.2 pg (28.0-32.0); MEAN CORPUSCULAR VOLUME 85.3 fL (80.0-94.0); MEAN PLATELET VOLUME 7.8 fl (7.4-10.4); PLATELET 340 x1000/uL (130-400); RED CELL DISTRIBUTION WIDTH 14.6 % (11.6-14.6)
[2023-01-01 05:54] LABS: CHLORIDE 92 mEq/L (98-107)
[2023-01-01 08:30] LABS: PLATELET ESTIMATE NORMAL
[2023-01-01] MEDS ORDERED: POTASSIUM CHLORIDE 20MEQ/PACKET PO NR (09:00)
[2023-01-01] MEDS ORDERED: CARVEDILOL 12.5MG TABLET PO NR (14:15)
[2023-01-01] MEDS ORDERED: DOCUSATE SODIUM 100MG CAPSULE PO PRN (14:15)
[2023-01-01] MEDS ORDERED: LORAZEPAM 0.5MG TABLET PO PRN (14:15)
[2023-01-01] MEDS ORDERED: ONDANSETRON HCL 4MG/2ML INJ IV PRN (14:15)
[2023-01-01] MEDS ORDERED: AMLODIPINE 10MG TABLET PO NR (14:15)
[2023-01-01] MEDS: SODIUM CHLORIDE 0.9% 1,000 ML IV SCH (15:45)
[2023-01-01 16:54] VITALS: BP 154/85
[2023-01-01] MEDS ORDERED: DEXTROSE 50% WATER 50ML SYRINGE IV PRN (17:30)
[2023-01-01 17:36] VITALS: BP 163/89
[2023-01-01] MEDS: ENOXAPARIN 30MG/0.3ML SYR SUBCUT SCH (17:36)
[2023-01-01] MEDS ORDERED: MOXI3DRO12 LEFTEYE (17:55)
[2023-01-01] MEDS ORDERED: IMIP50TA7 PO (17:55)
[2023-01-01] MEDS ORDERED: FERR-63 PO (17:55)
[2023-01-01] MEDS ORDERED: HYDR100T31 PO (17:55)
[2023-01-01] MEDS ORDERED: DOCU-150 PO (17:55)
[2023-01-01] MEDS ORDERED: BRIM.2 LEFTEYE (17:55)
[2023-01-01] MEDS ORDERED: ISOS60TA76 PO (17:55)
[2023-01-01] MEDS ORDERED: ATRO2DRO LEFTEYE (17:55)
[2023-01-01] MEDS ORDERED: FURO80TA3 PO (17:55)
[2023-01-01] MEDS ORDERED: PREDNISOLONE LEFTEYE (17:55)
[2023-01-01] MEDS ORDERED: LINA5TAB PO (17:55)
[2023-01-01] MEDS ORDERED: PREDNISOLONE LEFTEYE SCH (18:00)
[2023-01-01] MEDS ORDERED: ATROPINE SULFATE 1% OPHTH 2ML LEFTEYE SCH (18:00)
[2023-01-01] MEDS ORDERED: BRIMONIDINE 0.2% OPHTH DROPS 5ML LEFTEYE SCH (18:00)
[2023-01-01] MEDS ORDERED: MEDICATION NOT ON FORMULARY EA (Moxifloxacin HCl (Moxifloxacin) 1 DROP) LEFTEYE SCH (18:00)
[2023-01-01] MEDS: BLOOD SUGAR DIAGNOSTIC STRIP TEST SCH ×2 (18:01→21:00)
[2023-01-01 18:02] VITALS: BP 153/81
[2023-01-01] MEDS: INSULIN LISPRO 100 UNITS/ML SUBCUT SCH ×2 (18:15→21:23)
[2023-01-01 20:00] VITALS: BP 140/80
[2023-01-01] MEDS ORDERED: INSULIN LISPRO 100 UNITS/ML SUBCUT SCH (21:00)
[2023-01-01] MEDS ORDERED: BLOOD SUGAR DIAGNOSTIC STRIP TEST SCH (21:00)
[2023-01-01] MEDS: BRIMONIDINE 0.2% OP SCH (21:08)
[2023-01-01] MEDS: ATROPINE 1% OP SCH (21:09)
[2023-01-01] MEDS: HYDRALAZINE HCL 100MG TABLET PO SCH (21:22)
[2023-01-01] MEDS: PREDNISOLONE AC 1% OP SCH (21:23)
[2023-01-01] MEDS: MOXIFLOXACIN 0.5% OP SCH (21:24)
[2023-01-01] MEDS: SODIUM CHLORIDE 0.9% INJ 3ML FLUSH IVF SCH (21:24)
[2023-01-02] VITALS: BP 135/71
[2023-01-02 04:00] VITALS: BP 148/78
[2023-01-02] MEDS: SODIUM CHLORIDE 0.9% INJ 3ML FLUSH IVF SCH ×3 (06:00→21:09)
[2023-01-02] MEDS: BLOOD SUGAR DIAGNOSTIC STRIP TEST SCH ×4 (06:06→21:00)
[2023-01-02 06:19] LABS: HEMATOCRIT. 31.7 % (42.0-52.0); HEMOGLOBIN. 10.6 g/dL (14.0-18.0); MEAN CORPUSCULAR HEMOGLOBIN 28.6 pg (28.0-32.0); MEAN CORPUSCULAR VOLUME 85.7 fL (80.0-94.0); MEAN PLATELET VOLUME 8.3 fl (7.4-10.4); PLATELET 331 x1000/uL (130-400); RED CELL DISTRIBUTION WIDTH 14.8 % (11.6-14.6)
[2023-01-02 06:51] LABS: PHOSPHORUS 3.9 mg/dL (2.5-4.9)
[2023-01-02 06:55] LABS: VITAMIN B12 SERUM 589 pg/mL (211-911)
[2023-01-02 08:00] VITALS: BP 142/65
[2023-01-02] MEDS: INSULIN LISPRO 100 UNITS/ML SUBCUT SCH ×4 (08:14→21:13)
[2023-01-02] MEDS: FOLIC ACID/VITAMIN B COMP W-C TABLET PO SCH (08:16)
[2023-01-02] MEDS: HYDRALAZINE HCL 100MG TABLET PO SCH ×2 (08:16→21:09)
[2023-01-02] MEDS: MOXIFLOXACIN 0.5% OP SCH ×4 (10:59→21:10)
[2023-01-02] MEDS: BRIMONIDINE 0.2% OP SCH ×3 (10:59→17:16)
[2023-01-02] MEDS: ATROPINE 1% OP SCH ×2 (11:00→17:16)
[2023-01-02] MEDS: PREDNISOLONE AC 1% OP SCH ×4 (11:00→21:10)
[2023-01-02 12:00] VITALS: BP 160/80
[2023-01-02 12:09] LABS: NUCLEATED RED BLOOD CELLS 2 /100 WBC; PLATELET ESTIMATE NORMAL
[2023-01-02] MEDS: ENOXAPARIN 30MG/0.3ML SYR SUBCUT SCH (14:57)
[2023-01-02 16:00] VITALS: BP 169/87
[2023-01-02] MEDS: SODIUM CHLORIDE 0.9% 1,000 ML IV SCH (18:17)
[2023-01-02 20:01] VITALS: BP 153/77
[2023-01-03 00:16] VITALS: BP 151/85
[2023-01-03 04:02] VITALS: BP 150/80
[2023-01-03] MEDS: SODIUM CHLORIDE 0.9% INJ 3ML FLUSH IVF SCH ×2 (06:00→14:00)
[2023-01-03] MEDS: BLOOD SUGAR DIAGNOSTIC STRIP TEST SCH ×4 (06:21→20:48)
[2023-01-03 06:49] LABS: HEMATOCRIT. 31.7 % (42.0-52.0); HEMOGLOBIN. 10.5 g/dL (14.0-18.0); MEAN CORPUSCULAR HEMOGLOBIN 28.4 pg (28.0-32.0); MEAN CORPUSCULAR VOLUME 85.7 fL (80.0-94.0); MEAN PLATELET VOLUME 8.6 fl (7.4-10.4); PLATELET 327 x1000/uL (130-400); RED CELL DISTRIBUTION WIDTH 15.2 % (11.6-14.6)
[2023-01-03 08:02] VITALS: BP 139/87
[2023-01-03 09:53] LABS: CREATININE URINE (RAW) 93.4 mg/dl
[2023-01-03] MEDS: FOLIC ACID/VITAMIN B COMP W-C TABLET PO SCH (10:47)
[2023-01-03] MEDS: INSULIN LISPRO 100 UNITS/ML SUBCUT SCH ×4 (10:47→21:14)
[2023-01-03] MEDS: HYDRALAZINE HCL 100MG TABLET PO SCH ×2 (10:47→21:15)
[2023-01-03] MEDS: BRIMONIDINE 0.2% OP SCH ×3 (10:50→16:57)
[2023-01-03] MEDS: ATROPINE 1% OP SCH ×2 (10:51→16:57)
[2023-01-03] MEDS: PREDNISOLONE AC 1% OP SCH ×4 (10:52→21:14)
[2023-01-03] MEDS: MOXIFLOXACIN 0.5% OP SCH ×4 (10:52→21:12)
[2023-01-03 12:00] VITALS: BP 153/78
[2023-01-03 14:02] LABS: PLATELET ESTIMATE NORMAL
[2023-01-03] MEDS: ENOXAPARIN 30MG/0.3ML SYR SUBCUT SCH (17:06)
[2023-01-03 18:00] VITALS: BP 158/87
[2023-01-03 19:36] VITALS: BP 177/98
[2023-01-04] MEDS: SODIUM CHLORIDE 0.9% INJ 3ML FLUSH IVF SCH ×4 (00:06→20:14)
[2023-01-04 00:07] VITALS: BP 161/93
[2023-01-04] MEDS: CLONIDINE 0.1MG TABLET PO PRN (00:38)
[2023-01-04 04:16] VITALS: BP 164/87
[2023-01-04] MEDS: BLOOD SUGAR DIAGNOSTIC STRIP TEST SCH ×4 (06:40→20:14)
[2023-01-04] MEDS: INSULIN LISPRO 100 UNITS/ML SUBCUT SCH ×4 (06:56→20:21)
[2023-01-04 08:00] VITALS: BP 163/89
[2023-01-04] MEDS: HYDRALAZINE HCL 100MG TABLET PO SCH ×2 (08:58→20:14)
[2023-01-04] MEDS: FOLIC ACID/VITAMIN B COMP W-C TABLET PO SCH (08:58)
[2023-01-04] MEDS: ATROPINE 1% OP SCH ×2 (08:59→17:06)
[2023-01-04] MEDS: PREDNISOLONE AC 1% OP SCH ×4 (08:59→20:14)
[2023-01-04] MEDS: BRIMONIDINE 0.2% OP SCH ×3 (08:59→17:06)
[2023-01-04] MEDS: MOXIFLOXACIN 0.5% OP SCH ×4 (09:00→20:14)
[2023-01-04 12:12] VITALS: BP 163/82
[2023-01-04] MEDS: ENOXAPARIN 30MG/0.3ML SYR SUBCUT SCH (15:01)
[2023-01-04 15:21] VITALS: BP 150/90
[2023-01-04 20:00] VITALS: BP 156/77
[2023-01-05 00:01] VITALS: BP 168/100
[2023-01-05] MEDS: CLONIDINE 0.1MG TABLET PO PRN ×2 (00:54→21:52)
[2023-01-05 04:00] VITALS: BP 154/97
[2023-01-05] MEDS: BLOOD SUGAR DIAGNOSTIC STRIP TEST SCH ×4 (06:08→21:46)
[2023-01-05] MEDS: SODIUM CHLORIDE 0.9% INJ 3ML FLUSH IVF SCH ×3 (06:09→21:53)
[2023-01-05 08:00] LABS: BASOPHILS % 0.4 % (0.0-2.0); EOSINOPHILS % 3.4 % (0.0-5.0); HEMATOCRIT. 34.2 % (42.0-52.0); HEMOGLOBIN. 11.2 g/dL (14.0-18.0); LYMPHOCYTES % 14.2 % (20.0-50.0); MEAN CORPUSCULAR HEMOGLOBIN 28.1 pg (28.0-32.0); MEAN PLATELET VOLUME 8.8 fl (7.4-10.4); MONOCYTES % 9.6 % (2.0-8.0); NEUTROPHILS % 72.4 % (40.0-76.0); PLATELET 366 x1000/uL (130-400); RED BLOOD CELL COUNT 3.98 mill/uL (4.7-6.1); RED CELL DISTRIBUTION WIDTH 15.4 % (11.6-14.6)
[2023-01-05] MEDS: INSULIN LISPRO 100 UNITS/ML SUBCUT SCH ×4 (08:05→22:17)
[2023-01-05 08:08] VITALS: BP 151/88
[2023-01-05] MEDS: HYDRALAZINE HCL 100MG TABLET PO SCH ×2 (08:40→21:52)
[2023-01-05] MEDS: ATROPINE 1% OP SCH ×2 (08:40→17:05)
[2023-01-05] MEDS: FOLIC ACID/VITAMIN B COMP W-C TABLET PO SCH (08:40)
[2023-01-05] MEDS: MOXIFLOXACIN 0.5% OP SCH ×4 (08:41→21:52)
[2023-01-05] MEDS: PREDNISOLONE AC 1% OP SCH ×4 (08:41→21:52)
[2023-01-05] MEDS: BRIMONIDINE 0.2% OP SCH ×3 (08:41→17:05)
[2023-01-05 11:17] VITALS: BP 139/82
[2023-01-05] MEDS: ENOXAPARIN 30MG/0.3ML SYR SUBCUT SCH (14:13)
[2023-01-05 15:36] VITALS: BP 150/90
[2023-01-05 20:00] VITALS: BP 199/117
[2023-01-06] VITALS: BP 160/83
[2023-01-06 04:00] VITALS: BP 152/89
[2023-01-06] MEDS: SODIUM CHLORIDE 0.9% INJ 3ML FLUSH IVF SCH ×3 (05:23→21:18)
[2023-01-06] MEDS: BLOOD SUGAR DIAGNOSTIC STRIP TEST SCH ×4 (05:58→21:18)
[2023-01-06 08:00] VITALS: BP 170/100
[2023-01-06] MEDS: HYDRALAZINE HCL 100MG TABLET PO SCH ×2 (08:45→21:14)
[2023-01-06] MEDS: FOLIC ACID/VITAMIN B COMP W-C TABLET PO SCH (08:45)
[2023-01-06] MEDS: ATROPINE 1% OP SCH ×2 (08:46→16:41)
[2023-01-06] MEDS: PREDNISOLONE AC 1% OP SCH ×4 (08:46→21:15)
[2023-01-06] MEDS: MOXIFLOXACIN 0.5% OP SCH ×4 (08:47→21:16)
[2023-01-06] MEDS: BRIMONIDINE 0.2% OP SCH ×3 (08:48→16:42)
[2023-01-06] MEDS: INSULIN LISPRO 100 UNITS/ML SUBCUT SCH ×4 (08:51→21:12)
[2023-01-06 12:00] VITALS: BP 173/93
[2023-01-06] MEDS: CLONIDINE 0.1MG TABLET PO PRN (13:26)
[2023-01-06] MEDS: ENOXAPARIN 30MG/0.3ML SYR SUBCUT SCH (15:22)
[2023-01-06 16:00] VITALS: BP 159/98
[2023-01-06] MEDS ORDERED: CHLORHEXIDINE GLUCONATE 4% EXTERNAL USE TOP NR (16:00)
[2023-01-06] MEDS: MUPIROCIN 2% OINT 22GM TOP SCH (16:16)
[2023-01-06 20:00] VITALS: BP 163/99
[2023-01-07] VITALS: BP 148/94
[2023-01-07 04:00] VITALS: BP 172/96
[2023-01-07] MEDS: CLONIDINE 0.1MG TABLET PO PRN ×3 (04:56→12:04)
[2023-01-07] MEDS: SODIUM CHLORIDE 0.9% INJ 3ML FLUSH IVF SCH ×3 (06:08→21:07)
[2023-01-07 06:52] LABS: HEMATOCRIT 33.6 % (42.0-52.0); HEMOGLOBIN 11.2 g/dL (14.0-18.0); MEAN CORPUSCULAR HEMOGLOBIN 28.7 pg (28.0-32.0); MEAN CORPUSCULAR VOLUME 86.3 fL (80.0-94.0); PLATELET 364 x1000/uL (130-400); RED BLOOD CELL COUNT 3.89 mill/uL (4.7-6.1); RED CELL DISTRIBUTION WIDTH 15.6 % (11.6-14.6)
[2023-01-07 07:01] LABS: PROTHROMBIN TIME 10.9 sec (9.6-11.0)
[2023-01-07] MEDS: BLOOD SUGAR DIAGNOSTIC STRIP TEST SCH ×4 (07:33→21:00)
[2023-01-07] MEDS: INSULIN LISPRO 100 UNITS/ML SUBCUT SCH ×4 (08:08→20:59)
[2023-01-07] MEDS ORDERED: LIDOCAINE HCL 1% 10 MG/ML 10ML VIAL ONE (08:33)
[2023-01-07 08:36] VITALS: BP 164/103
[2023-01-07] MEDS: FOLIC ACID/VITAMIN B COMP W-C TABLET PO SCH (09:00)
[2023-01-07] MEDS: HYDRALAZINE HCL 100MG TABLET PO SCH ×2 (09:02→20:55)
[2023-01-07] MEDS: BRIMONIDINE 0.2% OP SCH ×3 (09:02→17:00)
[2023-01-07] MEDS: MOXIFLOXACIN 0.5% OP SCH ×4 (09:02→21:00)
[2023-01-07] MEDS: PREDNISOLONE AC 1% OP SCH ×4 (09:02→21:00)
[2023-01-07] MEDS: ATROPINE 1% OP SCH ×2 (09:02→17:00)
[2023-01-07] MEDS: MUPIROCIN 2% OINT 22GM TOP SCH (09:03)
[2023-01-07 11:55] VITALS: BP_SYST 164; BP_SYST 166; BP_DIAS 86; BP_DIAS 92
[2023-01-07 16:00] VITALS: BP 146/94
[2023-01-07] MEDS: ENOXAPARIN 30MG/0.3ML SYR SUBCUT SCH (17:00)
[2023-01-07 20:00] VITALS: BP 154/90
[2023-01-08] VITALS: BP 163/92
[2023-01-08 04:00] VITALS: BP 165/98
[2023-01-08] MEDS: CLONIDINE 0.1MG TABLET PO PRN ×4 (04:19→21:19)
[2023-01-08] MEDS: SODIUM CHLORIDE 0.9% INJ 3ML FLUSH IVF SCH ×3 (06:00→21:23)
[2023-01-08] MEDS: BLOOD SUGAR DIAGNOSTIC STRIP TEST SCH ×4 (07:02→21:23)
[2023-01-08] MEDS: INSULIN LISPRO 100 UNITS/ML SUBCUT SCH ×4 (08:01→21:19)
[2023-01-08 08:23] VITALS: BP 177/88
[2023-01-08] MEDS: HYDRALAZINE HCL 100MG TABLET PO SCH ×2 (08:44→21:19)
[2023-01-08] MEDS: PREDNISOLONE AC 1% OP SCH ×4 (08:44→21:23)
[2023-01-08] MEDS: ATROPINE 1% OP SCH ×2 (08:44→17:07)
[2023-01-08] MEDS: BRIMONIDINE 0.2% OP SCH ×3 (08:44→17:07)
[2023-01-08] MEDS: MUPIROCIN 2% OINT 22GM TOP SCH (08:44)
[2023-01-08] MEDS: FOLIC ACID/VITAMIN B COMP W-C TABLET PO SCH (08:44)
[2023-01-08] MEDS: MOXIFLOXACIN 0.5% OP SCH ×4 (08:45→21:00)
[2023-01-08 12:00] VITALS: BP 164/97
[2023-01-08] MEDS: ENOXAPARIN 30MG/0.3ML SYR SUBCUT SCH (14:20)
[2023-01-08 15:16] VITALS: BP 145/80
[2023-01-08 20:00] VITALS: BP 164/101
[2023-01-09] VITALS (9 sets, daily range): BP systolic 134–178; BP diastolic 82–105
[2023-01-09] MEDS: CLONIDINE 0.1MG TABLET PO PRN (04:38)
[2023-01-09] MEDS: SODIUM CHLORIDE 0.9% INJ 3ML FLUSH IVF SCH ×3 (06:00→23:00)
[2023-01-09 06:59] LABS: BASOPHILS % 0.6 % (0.0-2.0); EOSINOPHILS % 3.2 % (0.0-5.0); HEMATOCRIT. 34.2 % (42.0-52.0); HEMOGLOBIN. 11.2 g/dL (14.0-18.0); MEAN CORPUSCULAR HEMOGLOBIN 28.4 pg (28.0-32.0); MEAN CORPUSCULAR VOLUME 86.4 fL (80.0-94.0); MEAN PLATELET VOLUME 9.1 fl (7.4-10.4); MONOCYTES % 11.7 % (2.0-8.0); NEUTROPHILS % 64.5 % (40.0-76.0); PLATELET 393 x1000/uL (130-400); RED BLOOD CELL COUNT 3.96 mill/uL (4.7-6.1); RED CELL DISTRIBUTION WIDTH 15.9 % (11.6-14.6)
[2023-01-09] MEDS: BLOOD SUGAR DIAGNOSTIC STRIP TEST SCH ×4 (06:59→21:00)
[2023-01-09] MEDS: CLONIDINE 0.2MG TABLET PO SCH ×2 (07:24→14:55)
[2023-01-09] MEDS: HYDRALAZINE HCL 100MG TABLET PO SCH ×3 (07:24→22:56)
[2023-01-09] MEDS: MOXIFLOXACIN 0.5% OP SCH ×5 (09:00→23:01)
[2023-01-09] MEDS: ATROPINE 1% OP SCH ×2 (09:41→17:16)
[2023-01-09] MEDS: PREDNISOLONE AC 1% OP SCH ×4 (09:42→23:01)
[2023-01-09] MEDS: FOLIC ACID/VITAMIN B COMP W-C TABLET PO SCH (09:43)
[2023-01-09] MEDS: MUPIROCIN 2% OINT 22GM TOP SCH (09:45)
[2023-01-09] MEDS: INSULIN LISPRO 100 UNITS/ML SUBCUT SCH ×4 (09:45→23:02)
[2023-01-09] MEDS: BRIMONIDINE 0.2% OP SCH ×2 (13:03→17:17)
[2023-01-09] MEDS: ENOXAPARIN 30MG/0.3ML SYR SUBCUT SCH (14:55)
[2023-01-09] MEDS: CLONIDINE 0.1MG TABLET PO SCH (22:56)
[2023-01-10] VITALS: BP 160/96
[2023-01-10 04:00] VITALS: BP 163/90
[2023-01-10] MEDS: SODIUM CHLORIDE 0.9% INJ 3ML FLUSH IVF SCH ×3 (05:16→21:29)
[2023-01-10] MEDS: CLONIDINE 0.1MG TABLET PO SCH ×3 (05:17→21:24)
[2023-01-10] MEDS: HYDRALAZINE HCL 100MG TABLET PO SCH ×3 (05:17→21:25)
[2023-01-10] MEDS: BLOOD SUGAR DIAGNOSTIC STRIP TEST SCH ×4 (06:39→21:23)
[2023-01-10] MEDS: INSULIN LISPRO 100 UNITS/ML SUBCUT SCH ×4 (06:44→21:29)
[2023-01-10 08:00] VITALS: BP 145/91
[2023-01-10] MEDS: FOLIC ACID/VITAMIN B COMP W-C TABLET PO SCH (09:15)
[2023-01-10] MEDS: ATROPINE 1% OP SCH ×2 (09:32→17:56)
[2023-01-10] MEDS: BRIMONIDINE 0.2% OP SCH ×3 (09:32→17:57)
[2023-01-10] MEDS: MOXIFLOXACIN 0.5% OP SCH ×4 (09:32→21:22)
[2023-01-10] MEDS: PREDNISOLONE AC 1% OP SCH ×4 (09:33→21:23)
[2023-01-10] MEDS: MUPIROCIN 2% OINT 22GM TOP SCH (09:34)
[2023-01-10 12:00] VITALS: BP 157/84
[2023-01-10] MEDS: ENOXAPARIN 30MG/0.3ML SYR SUBCUT SCH (15:47)
[2023-01-10 16:00] VITALS: BP 143/88
[2023-01-10 20:00] VITALS: BP 138/83
[2023-01-11] VITALS: BP 129/60
[2023-01-11 04:00] VITALS: BP 143/89
[2023-01-11] MEDS: HYDRALAZINE HCL 100MG TABLET PO SCH ×3 (05:59→21:04)
[2023-01-11] MEDS: BLOOD SUGAR DIAGNOSTIC STRIP TEST SCH ×4 (06:00→21:06)
[2023-01-11] MEDS: ACETAMINOPHEN 325MG TABLET PO PRN (06:00)
[2023-01-11] MEDS: CLONIDINE 0.1MG TABLET PO SCH ×4 (06:00→21:06)
[2023-01-11] MEDS: SODIUM CHLORIDE 0.9% INJ 3ML FLUSH IVF SCH ×3 (06:01→21:04)
[2023-01-11] MEDS: INSULIN LISPRO 100 UNITS/ML SUBCUT SCH ×4 (06:19→21:13)
[2023-01-11 08:00] VITALS: BP 122/77
[2023-01-11] MEDS: FOLIC ACID/VITAMIN B COMP W-C TABLET PO SCH (08:45)
[2023-01-11] MEDS: ATROPINE 1% OP SCH ×2 (08:46→17:00)
[2023-01-11] MEDS: BRIMONIDINE 0.2% OP SCH ×3 (08:46→17:01)
[2023-01-11] MEDS: PREDNISOLONE AC 1% OP SCH ×4 (08:46→21:06)
[2023-01-11] MEDS: MOXIFLOXACIN 0.5% OP SCH ×4 (08:47→21:08)
[2023-01-11] MEDS: MUPIROCIN 2% OINT 22GM TOP SCH (08:47)
[2023-01-11 12:00] VITALS: BP_SYST 158; BP_SYST 94; BP_DIAS 50; BP_DIAS 88
[2023-01-11] MEDS: ENOXAPARIN 30MG/0.3ML SYR SUBCUT SCH (15:23)
[2023-01-11 16:00] VITALS: BP 159/96
[2023-01-11] MEDS: CLONIDINE 0.1MG TABLET PO PRN (16:57)
[2023-01-11 20:00] VITALS: BP 180/124
[2023-01-12] VITALS: BP 160/106
[2023-01-12] MEDS: CLONIDINE 0.1MG TABLET PO PRN ×2 (00:59→20:03)
[2023-01-12 04:00] VITALS: BP 173/91
[2023-01-12] MEDS: HYDRALAZINE HCL 100MG TABLET PO SCH ×3 (05:07→22:11)
[2023-01-12] MEDS: ACETAMINOPHEN 325MG TABLET PO PRN (05:07)
[2023-01-12] MEDS: CLONIDINE 0.1MG TABLET PO SCH ×3 (05:08→22:12)
[2023-01-12] MEDS: SODIUM CHLORIDE 0.9% INJ 3ML FLUSH IVF SCH ×3 (05:11→21:59)
[2023-01-12] MEDS: BLOOD SUGAR DIAGNOSTIC STRIP TEST SCH ×4 (06:42→21:57)
[2023-01-12] MEDS: INSULIN LISPRO 100 UNITS/ML SUBCUT SCH ×4 (06:47→22:12)
[2023-01-12 08:00] VITALS: BP 158/92
[2023-01-12] MEDS: FOLIC ACID/VITAMIN B COMP W-C TABLET PO SCH (09:50)
[2023-01-12] MEDS: PREDNISOLONE AC 1% OP SCH ×4 (09:51→21:59)
[2023-01-12] MEDS: ATROPINE 1% OP SCH ×2 (09:52→17:16)
[2023-01-12] MEDS: MOXIFLOXACIN 0.5% OP SCH ×4 (09:52→21:59)
[2023-01-12] MEDS: MUPIROCIN 2% OINT 22GM TOP SCH (09:57)
[2023-01-12 12:00] VITALS: BP 155/89
[2023-01-12] MEDS: BRIMONIDINE 0.2% OPHTH DROPS 5ML LEFTEYE SCH ×2 (12:44→17:17)
[2023-01-12] MEDS: ENOXAPARIN 30MG/0.3ML SYR SUBCUT SCH (14:18)
[2023-01-12 16:00] VITALS: BP 182/102
[2023-01-12 20:01] VITALS: BP 170/90
[2023-01-13] VITALS: BP 158/94
[2023-01-13 06:00] VITALS: BP 175/98
[2023-01-13 06:30] LABS: BASOPHILS % 0.8 % (0.0-2.0); EOSINOPHILS % 4.3 % (0.0-5.0); HEMATOCRIT. 32.9 % (42.0-52.0); HEMOGLOBIN. 10.7 g/dL (14.0-18.0); MEAN CORPUSCULAR HEMOGLOBIN 28.3 pg (28.0-32.0); MEAN CORPUSCULAR VOLUME 87.2 fL (80.0-94.0); MEAN PLATELET VOLUME 9.2 fl (7.4-10.4); NEUTROPHILS % 64.9 % (40.0-76.0); PLATELET 368 x1000/uL (130-400); RED BLOOD CELL COUNT 3.77 mill/uL (4.7-6.1); RED CELL DISTRIBUTION WIDTH 16.7 % (11.6-14.6)
[2023-01-13] MEDS: SODIUM CHLORIDE 0.9% INJ 3ML FLUSH IVF SCH ×3 (06:37→21:12)
[2023-01-13] MEDS: BLOOD SUGAR DIAGNOSTIC STRIP TEST SCH ×4 (06:37→21:27)
[2023-01-13] MEDS: HYDRALAZINE HCL 100MG TABLET PO SCH ×3 (06:48→21:09)
[2023-01-13] MEDS: CLONIDINE 0.1MG TABLET PO SCH ×3 (06:48→21:10)
[2023-01-13 07:24] LABS: PHOSPHORUS 4.1 mg/dL (2.5-4.9)
[2023-01-13 08:00] VITALS: BP 145/89
[2023-01-13] MEDS: ATROPINE 1% OP SCH ×2 (08:22→17:25)
[2023-01-13] MEDS: MOXIFLOXACIN 0.5% OP SCH ×4 (08:23→21:10)
[2023-01-13] MEDS: PREDNISOLONE AC 1% OP SCH ×4 (08:23→21:22)
[2023-01-13] MEDS: INSULIN LISPRO 100 UNITS/ML SUBCUT SCH ×5 (08:31→22:10)
[2023-01-13] MEDS: BRIMONIDINE 0.2% OPHTH DROPS 5ML LEFTEYE SCH ×3 (08:33→17:27)
[2023-01-13] MEDS: FOLIC ACID/VITAMIN B COMP W-C TABLET PO SCH (08:46)
[2023-01-13] MEDS: MUPIROCIN 2% OINT 22GM TOP SCH (09:00)
[2023-01-13 12:00] VITALS: BP 182/95
[2023-01-13] MEDS ORDERED: SODIUM POLYSTYRENE SULFONATE 15 G/60 ML BOT PO NR (12:45)
[2023-01-13 16:00] VITALS: BP 199/104
[2023-01-13] MEDS: ENOXAPARIN 30MG/0.3ML SYR SUBCUT SCH ×2 (17:20→17:24)
[2023-01-13 20:00] VITALS: BP 173/83
[2023-01-14] VITALS: BP 197/86
[2023-01-14] MEDS: CLONIDINE 0.1MG TABLET PO PRN ×2 (00:06→12:49)
[2023-01-14 05:00] VITALS: BP 165/75
[2023-01-14] MEDS: SODIUM CHLORIDE 0.9% INJ 3ML FLUSH IVF SCH ×3 (05:19→22:28)
[2023-01-14] MEDS: HYDRALAZINE HCL 100MG TABLET PO SCH ×3 (05:19→21:40)
[2023-01-14] MEDS: CLONIDINE 0.1MG TABLET PO SCH ×3 (05:20→21:40)
[2023-01-14] MEDS: BLOOD SUGAR DIAGNOSTIC STRIP TEST SCH ×4 (07:26→21:41)
[2023-01-14 08:00] VITALS: BP 155/72
[2023-01-14] MEDS: MOXIFLOXACIN 0.5% OP SCH ×4 (08:39→21:39)
[2023-01-14] MEDS: BRIMONIDINE 0.2% OPHTH DROPS 5ML LEFTEYE SCH ×3 (08:39→16:43)
[2023-01-14] MEDS: PREDNISOLONE AC 1% OP SCH ×4 (08:40→21:39)
[2023-01-14] MEDS: ATROPINE 1% OP SCH ×2 (08:40→16:43)
[2023-01-14] MEDS: MUPIROCIN 2% OINT 22GM TOP SCH (08:43)
[2023-01-14] MEDS: FOLIC ACID/VITAMIN B COMP W-C TABLET PO SCH (08:46)
[2023-01-14] MEDS: INSULIN LISPRO 100 UNITS/ML SUBCUT SCH ×4 (08:46→22:21)
[2023-01-14 09:45] LABS: BASOPHILS % 0.9 % (0.0-2.0); EOSINOPHILS % 2.9 % (0.0-5.0); HEMATOCRIT. 33.6 % (42.0-52.0); HEMOGLOBIN. 11.1 g/dL (14.0-18.0); LYMPHOCYTES % 15.5 % (20.0-50.0); MEAN CORPUSCULAR HEMOGLOBIN 29.1 pg (28.0-32.0); MEAN CORPUSCULAR VOLUME 87.9 fL (80.0-94.0); MEAN PLATELET VOLUME 8.4 fl (7.4-10.4); MONOCYTES % 8.6 % (2.0-8.0); NEUTROPHILS % 72.1 % (40.0-76.0); PLATELET 335 x1000/uL (130-400); RED BLOOD CELL COUNT 3.82 mill/uL (4.7-6.1); RED CELL DISTRIBUTION WIDTH 16.6 % (11.6-14.6)
[2023-01-14 12:00] VITALS: BP 162/94
[2023-01-14 16:00] VITALS: BP 155/81
[2023-01-14 20:00] VITALS: BP 184/94
[2023-01-15] VITALS: BP 161/85
[2023-01-15] MEDS: CLONIDINE 0.1MG TABLET PO PRN (00:57)
[2023-01-15] MEDS: HYDRALAZINE HCL 100MG TABLET PO SCH ×3 (04:26→22:54)
[2023-01-15] MEDS: CLONIDINE 0.1MG TABLET PO SCH ×3 (04:27→22:53)
[2023-01-15] MEDS: SODIUM CHLORIDE 0.9% INJ 3ML FLUSH IVF SCH ×3 (06:46→22:00)
[2023-01-15] MEDS: BLOOD SUGAR DIAGNOSTIC STRIP TEST SCH ×4 (06:46→21:00)
[2023-01-15] MEDS: INSULIN LISPRO 100 UNITS/ML SUBCUT SCH ×4 (06:55→21:00)
[2023-01-15 08:01] VITALS: BP 118/76
[2023-01-15] MEDS: FOLIC ACID/VITAMIN B COMP W-C TABLET PO SCH (08:11)
[2023-01-15] MEDS: BRIMONIDINE 0.2% OPHTH DROPS 5ML LEFTEYE SCH ×3 (08:12→17:06)
[2023-01-15] MEDS: PREDNISOLONE AC 1% OP SCH ×4 (08:12→22:49)
[2023-01-15] MEDS: ATROPINE 1% OP SCH ×2 (08:12→17:05)
[2023-01-15] MEDS: MUPIROCIN 2% OINT 22GM TOP SCH (08:13)
[2023-01-15] MEDS: MOXIFLOXACIN 0.5% OP SCH ×4 (08:14→21:00)
[2023-01-15 12:00] VITALS: BP 124/85
[2023-01-15] MEDS: ENOXAPARIN 30MG/0.3ML SYR SUBCUT SCH (15:19)
[2023-01-15 16:00] VITALS: BP 143/92
[2023-01-15 20:00] VITALS: BP 146/85
[2023-01-16] VITALS: BP 139/80
[2023-01-16] MEDS: HYDRALAZINE HCL 100MG TABLET PO SCH ×3 (06:28→21:47)
[2023-01-16] MEDS: CLONIDINE 0.1MG TABLET PO SCH ×3 (06:30→21:47)
[2023-01-16] MEDS: SODIUM CHLORIDE 0.9% INJ 3ML FLUSH IVF SCH ×3 (06:33→22:00)
[2023-01-16] MEDS: INSULIN LISPRO 100 UNITS/ML SUBCUT SCH ×4 (06:39→21:53)
[2023-01-16] MEDS: BLOOD SUGAR DIAGNOSTIC STRIP TEST SCH ×4 (06:39→21:39)
[2023-01-16 08:00] VITALS: BP 163/88
[2023-01-16 12:00] VITALS: BP 137/77
[2023-01-16 16:00] VITALS: BP 142/77
[2023-01-16] MEDS: ENOXAPARIN 30MG/0.3ML SYR SUBCUT SCH (16:39)
[2023-01-16] MEDS: MOXIFLOXACIN 0.5% OP SCH ×2 (17:00→20:06)
[2023-01-16 17:17] LABS: HEMATOCRIT. 35.2 % (42.0-52.0); HEMOGLOBIN. 11.5 g/dL (14.0-18.0); MEAN CORPUSCULAR HEMOGLOBIN 28.3 pg (28.0-32.0); MEAN CORPUSCULAR VOLUME 86.9 fL (80.0-94.0); RED BLOOD CELL COUNT 4.05 mill/uL (4.7-6.1); RED CELL DISTRIBUTION WIDTH 17.1 % (11.6-14.6)
[2023-01-16 17:47] LABS: PLATELET 310 x1000/uL (130-400)
[2023-01-16 17:50] LABS: PLATELET ESTIMATE NORMAL
[2023-01-16] MEDS: CLONIDINE 0.1MG TABLET PO PRN (17:54)
[2023-01-16] MEDS ORDERED: SODIUM CHLORIDE 0.45% 500 ML IV ONE (19:00)
[2023-01-16] MEDS: ATROPINE 1% OP SCH (19:11)
[2023-01-16] MEDS: PREDNISOLONE AC 1% OP SCH ×2 (19:11→20:05)
[2023-01-16] MEDS: BRIMONIDINE 0.2% OPHTH DROPS 5ML LEFTEYE SCH (19:13)
[2023-01-16 20:00] VITALS: BP 144/73
[2023-01-16] MEDS ORDERED: SODIUM POLYSTYRENE SULFONATE 15 G/60 ML BOT PO NR (20:30)
[2023-01-17] VITALS: BP 197/104
[2023-01-17] MEDS: BLOOD SUGAR DIAGNOSTIC STRIP TEST SCH (06:52)
[2023-01-17] MEDS: CLONIDINE 0.1MG TABLET PO SCH (06:56)
[2023-01-17] MEDS: HYDRALAZINE HCL 100MG TABLET PO SCH (06:56)
[2023-01-17] MEDS: SODIUM CHLORIDE 0.9% INJ 3ML FLUSH IVF SCH (06:58)
[2023-01-17 08:00] VITALS: BP 165/93
== END 2023-01-17 09:25 | DRG 73 ==
LOC: ER 04:41 → MICUSO 11:38 → EDBEDREQTM 11:49 → EDBEDREQ 11:49 → 3WST 16:35 → UNDODISIN 01-09 16:32 → 5WST 01-09 20:18
PROVIDERS: ADMIT Internal Medicine Nephrology; ATTEND Internal Medicine Nephrology
PROC: 4A00X4Z Measurement of Central Nervous Electrical Activity, External Approach (ICD-10-PCS; principal; 2023-01-02)
PROC: 02PAX3Z Removal of Infusion Device from Heart, External Approach (ICD-10-PCS; 2023-01-07)
DX: G90.8 Other disorders of autonomic nervous system (principal); G82.50 Quadriplegia, unspecified; N18.6 End stage renal disease; N17.9 Acute kidney failure, unspecified; M50.01 Cervical disc disorder with myelopathy, high cervical region; G93.40 Encephalopathy, unspecified; I13.2 Hypertensive heart and chronic kidney disease with heart failure and with stage 5 chronic kidney disease, or end stage renal disease; I50.32 Chronic diastolic (congestive) heart failure; R62.7 Adult failure to thrive; E87.5 Hyperkalemia; D63.1 Anemia in chronic kidney disease; E11.22 Type 2 diabetes mellitus with diabetic chronic kidney disease; E11.51 Type 2 diabetes mellitus with diabetic peripheral angiopathy without gangrene; Z20.822 Contact with and (suspected) exposure to COVID-19; R29.6 Repeated falls; H26.9 Unspecified cataract; Z96.642 Presence of left artificial hip joint; Z85.46 Personal history of malignant neoplasm of prostate; Z99.2 Dependence on renal dialysis; Z68.25 Body mass index [BMI] 25.0-25.9, adult; Z79.899 Other long term (current) drug therapy; Z90.79 Acquired absence of other genital organ(s)
CPT/HCPCS: 36415; 36589; 71045; 72141; 72146; 72148; 80048; 80053; 82140; 82570; 82575; 82607; 82962; 83036; 83735; 83880; 84100; 84443; 84484; 85025; 85027; 86850; 86900; 87426; 93005; 93880; 93970; 95816; 97110; 97116; 97162; 97166; 97530; 97535; 99285; C1893; J1650; J1815; J3490; J7030

== ENCOUNTER 2023-01-23 13:58 | Inpatient (IN) | payer OTHER, BC ==
[~2023-01-23] VITALS: Ht 182.9 cm; Wt 89.4 kg
[~2023-01-23 13:58] MED LIST changes: +ATRO2DRO LEFTEYE; +BRIM.2 LEFTEYE; +DOCU-150 PO; +FERR-63 PO; +FURO80TA3 PO; +HYDR100T31 PO; +IMIP50TA7 PO; +ISOS60TA76 PO; +LINA5TAB PO; +MOXI3DRO12 LEFTEYE; +PREDNISOLONE LEFTEYE
[2023-01-23 15:28] LABS: BASOPHILS % 0.3 % (0.0-2.0); HEMATOCRIT. 33.1 % (42.0-52.0); HEMOGLOBIN. 10.9 g/dL (14.0-18.0); LYMPHOCYTES % 14.2 % (20.0-50.0); MEAN CORPUSCULAR HEMOGLOBIN 28.7 pg (28.0-32.0); MEAN CORPUSCULAR VOLUME 87.3 fL (80.0-94.0); MEAN PLATELET VOLUME 8.4 fl (7.4-10.4); MONOCYTES % 10.3 % (2.0-8.0); NEUTROPHILS % 71.2 % (40.0-76.0); PLATELET 317 x1000/uL (130-400); RED BLOOD CELL COUNT 3.79 mill/uL (4.7-6.1); RED CELL DISTRIBUTION WIDTH 17.6 % (11.6-14.6)
[2023-01-23 15:38] LABS: CHLORIDE 114 mEq/L (98-107); PROTHROMBIN TIME 10.7 sec (9.6-11.0)
[2023-01-23] MEDS ORDERED: CLONIDINE 0.1MG TABLET PO ONE (17:15)
[2023-01-23] MEDS ORDERED: ACETAMINOPHEN 325MG TABLET PO PRN (20:00)
[2023-01-23] MEDS ORDERED: DOCUSATE SODIUM 100MG CAPSULE PO PRN (20:00)
[2023-01-23] MEDS ORDERED: MAGNESIUM/ALUMINUM HYDROXIDE/SIMETHICONE 30ML UDC PO PRN (20:00)
[2023-01-23] MEDS ORDERED: IPRATROPIUM/ALBUTEROL 0.5-3(2.5)MG/3ML NEB NEB PRN (20:00)
[2023-01-23] MEDS ORDERED: ONDANSETRON HCL 4MG/2ML INJ IV PRN (20:00)
[2023-01-23] MEDS ORDERED: DEXTROSE 50% WATER 50ML SYRINGE IV PRN (20:00)
[2023-01-23] MEDS: ENOXAPARIN 30MG/0.3ML SYR SUBCUT SCH (21:08)
[2023-01-23] MEDS: IMIPRAMINE HCL 25MG TABLET PO SCH (21:17)
[2023-01-23] MEDS: BLOOD SUGAR DIAGNOSTIC STRIP TEST SCH (21:28)
[2023-01-23] MEDS: INSULIN LISPRO 100 UNITS/ML SUBCUT SCH (21:29)
[2023-01-23 22:05] LABS: CLARITY URINE CLOUDY (CLEAR); COLOR URINE YELLOW (YELLOW); KETONES URINE NEGATIVE (NEGATIVE); LEUKOCYTE ESTERASE URINE NEGATIVE (NEGATIVE); NITRITE URINE NEGATIVE (NEGATIVE); OCCULT BLOOD URINE 2+ (NEGATIVE); PH URINE 5.5 (4.5-8.0); PROTEIN URINE 4+ (NEGATIVE); UROBILINOGEN URINE 0.2 E.U./dL (0.2-1.0)
[2023-01-23] MEDS: HYDRALAZINE HCL 100MG TABLET PO SCH (22:53)
[2023-01-23 23:43] LABS: TOTAL IRON BINDING CAPACITY 214 ug/dL (250-450)
[2023-01-24] VITALS (8 sets, daily range): BP systolic 140–201; BP diastolic 81–123
[2023-01-24 00:40] LABS: HEPATITIS B SURFACE ANTIGEN NEGATIVE
[2023-01-24 01:08] LABS: VITAMIN B12 SERUM 419 pg/mL (211-911)
[2023-01-24] MEDS: CLONIDINE 0.1MG TABLET PO PRN ×2 (01:10→06:44)
[2023-01-24] MEDS ORDERED: NITROGLYCERIN 0.4MG TABLET SL SL ONE (02:30)
[2023-01-24 02:49] LABS: FERRITIN 211 ng/mL (22-322)
[2023-01-24] MEDS ORDERED: AMLODIPINE 10MG TABLET PO NR (06:15)
[2023-01-24] MEDS: HYDRALAZINE HCL 100MG TABLET PO SCH ×3 (06:44→21:44)
[2023-01-24] MEDS: BLOOD SUGAR DIAGNOSTIC STRIP TEST SCH ×4 (07:40→21:03)
[2023-01-24] MEDS: INSULIN LISPRO 100 UNITS/ML SUBCUT SCH ×4 (09:01→21:03)
[2023-01-24] MEDS: FUROSEMIDE 40MG/4ML VIAL IV SCH (09:01)
[2023-01-24] MEDS: FERROUS SULFATE 325MG TABLET PO SCH ×2 (09:01→17:18)
[2023-01-24] MEDS: LINAGLIPTIN 5MG TABLET PO SCH (09:01)
[2023-01-24] MEDS: ISOSORBIDE MONONITRATE 60MG TABLET SR 24HR PO SCH (09:01)
[2023-01-24] MEDS: PANTOPRAZOLE SODIUM 40 MG/VIAL IV SCH (09:02)
[2023-01-24 09:43] LABS: BASOPHILS % 0.5 % (0.0-2.0); EOSINOPHILS % 6.1 % (0.0-5.0); HEMATOCRIT. 32.9 % (42.0-52.0); HEMOGLOBIN. 10.8 g/dL (14.0-18.0); LYMPHOCYTES % 14.3 % (20.0-50.0); MEAN CORPUSCULAR HEMOGLOBIN 28.8 pg (28.0-32.0); MEAN CORPUSCULAR VOLUME 87.4 fL (80.0-94.0); MEAN PLATELET VOLUME 8.5 fl (7.4-10.4); MONOCYTES % 10.7 % (2.0-8.0); NEUTROPHILS % 68.4 % (40.0-76.0); PLATELET 319 x1000/uL (130-400); RED BLOOD CELL COUNT 3.77 mill/uL (4.7-6.1); RED CELL DISTRIBUTION WIDTH 17.5 % (11.6-14.6)
[2023-01-24 09:51] LABS: PARTIAL THROMBOPLASTIN TIME 28.9 sec (23.4-31.0); PROTHROMBIN TIME 10.7 sec (9.6-11.0)
[2023-01-24 09:55] LABS: CHLORIDE 114 mEq/L (98-107)
[2023-01-24 10:08] LABS: CREATINE KINASE MB FRACTION 3.8 ng/mL (0.5-3.6)
[2023-01-24] MEDS ORDERED: ALBUTEROL (0.083%) 2.5MG/3ML NEB HHN PRN (10:15)
[2023-01-24] MEDS ORDERED: IPRATROPIUM BROMIDE (0.02%) 0.5MG/2.5ML NEB HHN PRN (10:15)
[2023-01-24] MEDS ORDERED: BRIM15DR8 LEFTEYE (10:32)
[2023-01-24] MEDS ORDERED: NEPVIT MT (10:36)
[2023-01-24] MEDS ORDERED: LORA-249 MT (10:39)
[2023-01-24] MEDS: ATROPINE SULFATE 1% OPHTH 2ML LEFTEYE SCH (17:18)
[2023-01-24] MEDS: BRIMONIDINE 0.2% OPHTH DROPS 5ML LEFTEYE SCH (17:18)
[2023-01-24 17:26] LABS: CREATINE KINASE MB FRACTION 3.5 ng/mL (0.5-3.6)
[2023-01-24] MEDS: SODIUM CHLORIDE 0.45% 1,000 ML IV SCH (17:30)
[2023-01-24] MEDS: CARVEDILOL 12.5MG TABLET PO SCH (21:02)
[2023-01-24] MEDS: IMIPRAMINE HCL 25MG TABLET PO SCH (21:02)
[2023-01-24] MEDS: ENOXAPARIN 30MG/0.3ML SYR SUBCUT SCH (21:04)
[2023-01-25] VITALS (7 sets, daily range): BP systolic 133–182; BP diastolic 68–99
[2023-01-25 02:17] LABS: CREATINE KINASE MB FRACTION 4.5 ng/mL (0.5-3.6)
[2023-01-25] MEDS: CLONIDINE 0.1MG TABLET PO PRN (05:13)
[2023-01-25] MEDS: HYDRALAZINE HCL 100MG TABLET PO SCH ×3 (05:13→21:54)
[2023-01-25] MEDS: BLOOD SUGAR DIAGNOSTIC STRIP TEST SCH ×4 (06:16→21:57)
[2023-01-25] MEDS: INSULIN LISPRO 100 UNITS/ML SUBCUT SCH ×4 (08:10→21:58)
[2023-01-25] MEDS: FUROSEMIDE 40MG/4ML VIAL IV SCH (08:41)
[2023-01-25] MEDS: LINAGLIPTIN 5MG TABLET PO SCH (08:41)
[2023-01-25] MEDS: PANTOPRAZOLE SODIUM 40 MG/VIAL IV SCH (08:41)
[2023-01-25] MEDS: ISOSORBIDE MONONITRATE 60MG TABLET SR 24HR PO SCH (08:41)
[2023-01-25] MEDS: FERROUS SULFATE 325MG TABLET PO SCH ×2 (08:41→16:51)
[2023-01-25] MEDS: ACETAMINOPHEN 325MG TABLET PO PRN (08:42)
[2023-01-25] MEDS: AMLODIPINE 10MG TABLET PO SCH (08:42)
[2023-01-25] MEDS: CARVEDILOL 12.5MG TABLET PO SCH ×2 (08:43→21:54)
[2023-01-25] MEDS: ATROPINE SULFATE 1% OPHTH 2ML LEFTEYE SCH ×2 (08:43→16:51)
[2023-01-25] MEDS: BRIMONIDINE 0.2% OPHTH DROPS 5ML LEFTEYE SCH ×3 (08:43→16:51)
[2023-01-25] MEDS: SODIUM CHLORIDE 0.45% 1,000 ML IV SCH (08:45)
[2023-01-25 10:25] LABS: FOLIC ACID (FOLATE) SERUM > 20.00 ng/mL (>5.38)
[2023-01-25 11:31] LABS: BASOPHILS % 0.5 % (0.0-2.0); EOSINOPHILS % 4.5 % (0.0-5.0); HEMATOCRIT. 30.7 % (42.0-52.0); HEMOGLOBIN. 10.5 g/dL (14.0-18.0); MEAN CORPUSCULAR HEMOGLOBIN 29.6 pg (28.0-32.0); MEAN CORPUSCULAR VOLUME 86.7 fL (80.0-94.0); MEAN PLATELET VOLUME 8.5 fl (7.4-10.4); MONOCYTES % 8.1 % (2.0-8.0); NEUTROPHILS % 75.9 % (40.0-76.0); PLATELET 300 x1000/uL (130-400); RED BLOOD CELL COUNT 3.53 mill/uL (4.7-6.1); RED CELL DISTRIBUTION WIDTH 18.1 % (11.6-14.6)
[2023-01-25] MEDS: MAGNESIUM OXIDE 400MG TABLET PO SCH (12:22)
[2023-01-25] MEDS: CLONIDINE 0.2MG TABLET PO SCH ×2 (14:56→21:57)
[2023-01-25] MEDS: ENOXAPARIN 30MG/0.3ML SYR SUBCUT SCH (21:53)
[2023-01-25] MEDS: IMIPRAMINE HCL 25MG TABLET PO SCH (21:57)
[2023-01-26] VITALS: BP 122/76
[2023-01-26] MEDS: SODIUM CHLORIDE 0.45% 1,000 ML IV SCH (02:31)
[2023-01-26 04:00] VITALS: BP 124/58
[2023-01-26] MEDS: CLONIDINE 0.2MG TABLET PO SCH ×3 (06:32→21:01)
[2023-01-26] MEDS: HYDRALAZINE HCL 100MG TABLET PO SCH ×3 (06:32→21:01)
[2023-01-26] MEDS: BLOOD SUGAR DIAGNOSTIC STRIP TEST SCH ×4 (06:40→20:27)
[2023-01-26 07:07] LABS: PHOSPHORUS 4.5 mg/dL (2.5-4.9)
[2023-01-26 08:00] VITALS: BP 130/69
[2023-01-26] MEDS: INSULIN LISPRO 100 UNITS/ML SUBCUT SCH ×4 (08:10→21:32)
[2023-01-26] MEDS: FUROSEMIDE 40MG/4ML VIAL IV SCH (08:37)
[2023-01-26] MEDS: PANTOPRAZOLE SODIUM 40 MG/VIAL IV SCH (08:37)
[2023-01-26] MEDS: FERROUS SULFATE 325MG TABLET PO SCH ×2 (08:38→17:55)
[2023-01-26] MEDS: ISOSORBIDE MONONITRATE 60MG TABLET SR 24HR PO SCH (08:40)
[2023-01-26] MEDS: CARVEDILOL 12.5MG TABLET PO SCH ×2 (08:41→20:27)
[2023-01-26] MEDS: LINAGLIPTIN 5MG TABLET PO SCH (08:41)
[2023-01-26] MEDS: BRIMONIDINE 0.2% OPHTH DROPS 5ML LEFTEYE SCH ×3 (08:42→17:57)
[2023-01-26] MEDS: ATROPINE SULFATE 1% OPHTH 2ML LEFTEYE SCH ×2 (08:42→17:56)
[2023-01-26] MEDS: AMLODIPINE 10MG TABLET PO SCH (08:44)
[2023-01-26] MEDS: MAGNESIUM OXIDE 400MG TABLET PO SCH (09:00)
[2023-01-26 12:00] VITALS: BP 113/63
[2023-01-26] MEDS: CLONIDINE 0.1MG TABLET PO PRN (13:37)
[2023-01-26 16:00] VITALS: BP 118/65
[2023-01-26 20:00] VITALS: BP 99/51
[2023-01-26] MEDS: ENOXAPARIN 30MG/0.3ML SYR SUBCUT SCH (21:30)
[2023-01-26] MEDS: IMIPRAMINE HCL 25MG TABLET PO SCH (21:32)
[2023-01-27] VITALS: BP 125/68
[2023-01-27 04:00] VITALS: BP 135/76
[2023-01-27] MEDS: HYDRALAZINE HCL 100MG TABLET PO SCH ×3 (05:01→21:09)
[2023-01-27] MEDS: CLONIDINE 0.2MG TABLET PO SCH ×3 (05:01→21:09)
[2023-01-27 06:33] LABS: BASOPHILS % 0.3 % (0.0-2.0); EOSINOPHILS % 4.4 % (0.0-5.0); HEMATOCRIT. 29.2 % (42.0-52.0); HEMOGLOBIN. 9.5 g/dL (14.0-18.0); LYMPHOCYTES % 14.6 % (20.0-50.0); MEAN CORPUSCULAR HEMOGLOBIN 28.4 pg (28.0-32.0); MEAN CORPUSCULAR VOLUME 87.2 fL (80.0-94.0); MEAN PLATELET VOLUME 9.9 fl (7.4-10.4); MONOCYTES % 10.6 % (2.0-8.0); NEUTROPHILS % 70.1 % (40.0-76.0); PLATELET 301 x1000/uL (130-400); RED BLOOD CELL COUNT 3.35 mill/uL (4.7-6.1); RED CELL DISTRIBUTION WIDTH 17.7 % (11.6-14.6)
[2023-01-27] MEDS: BLOOD SUGAR DIAGNOSTIC STRIP TEST SCH ×4 (06:44→21:00)
[2023-01-27] MEDS: INSULIN LISPRO 100 UNITS/ML SUBCUT SCH ×4 (07:13→21:00)
[2023-01-27 08:00] VITALS: BP 147/82
[2023-01-27] MEDS: ATROPINE SULFATE 1% OPHTH 2ML LEFTEYE SCH ×2 (08:05→16:26)
[2023-01-27] MEDS: FERROUS SULFATE 325MG TABLET PO SCH ×2 (08:06→16:25)
[2023-01-27] MEDS: CARVEDILOL 12.5MG TABLET PO SCH ×2 (08:06→21:08)
[2023-01-27] MEDS: BRIMONIDINE 0.2% OPHTH DROPS 5ML LEFTEYE SCH ×3 (08:06→16:26)
[2023-01-27] MEDS: ISOSORBIDE MONONITRATE 60MG TABLET SR 24HR PO SCH (08:07)
[2023-01-27] MEDS: PANTOPRAZOLE SODIUM 40 MG/VIAL IV SCH (08:07)
[2023-01-27] MEDS: LINAGLIPTIN 5MG TABLET PO SCH (08:07)
[2023-01-27] MEDS: FUROSEMIDE 40MG/4ML VIAL IV SCH (08:07)
[2023-01-27] MEDS: AMLODIPINE 10MG TABLET PO SCH (08:08)
[2023-01-27] MEDS: MAGNESIUM OXIDE 400MG TABLET PO SCH (08:08)
[2023-01-27 12:00] VITALS: BP 136/70
[2023-01-27] MEDS: CLONIDINE 0.1MG TABLET PO PRN (13:14)
[2023-01-27 16:00] VITALS: BP 134/72
[2023-01-27] MEDS ORDERED: SODIUM BICARBONATE 50 MEQ in SODIUM CHLORIDE 0.45% 1,000 ML IV SCH (17:30)
[2023-01-27 20:00] VITALS: BP 128/64
[2023-01-27] MEDS: IMIPRAMINE HCL 25MG TABLET PO SCH (21:08)
[2023-01-27] MEDS: ENOXAPARIN 30MG/0.3ML SYR SUBCUT SCH (21:09)
[2023-01-27] MEDS: ACETAMINOPHEN 325MG TABLET PO PRN (21:23)
[2023-01-28 00:05] VITALS: BP 142/77
[2023-01-28 04:00] VITALS: BP 135/70
[2023-01-28] MEDS: HYDRALAZINE HCL 100MG TABLET PO SCH ×3 (05:20→20:34)
[2023-01-28] MEDS: CLONIDINE 0.2MG TABLET PO SCH ×3 (05:20→20:40)
[2023-01-28] MEDS: INSULIN LISPRO 100 UNITS/ML SUBCUT SCH ×4 (05:23→20:46)
[2023-01-28] MEDS: BLOOD SUGAR DIAGNOSTIC STRIP TEST SCH ×4 (05:23→20:39)
[2023-01-28 06:26] LABS: BASOPHILS % 0.3 % (0.0-2.0); EOSINOPHILS % 5.2 % (0.0-5.0); HEMATOCRIT. 30.5 % (42.0-52.0); HEMOGLOBIN. 10.3 g/dL (14.0-18.0); LYMPHOCYTES % 17.2 % (20.0-50.0); MEAN CORPUSCULAR HEMOGLOBIN 29.5 pg (28.0-32.0); MONOCYTES % 10.2 % (2.0-8.0); NEUTROPHILS % 67.1 % (40.0-76.0); PLATELET 322 x1000/uL (130-400); RED BLOOD CELL COUNT 3.51 mill/uL (4.7-6.1); RED CELL DISTRIBUTION WIDTH 17.4 % (11.6-14.6)
[2023-01-28 07:34] LABS: CHLORIDE 106 mEq/L (98-107)
[2023-01-28 07:44] LABS: PHOSPHORUS 4.4 mg/dL (2.5-4.9)
[2023-01-28 08:00] VITALS: BP 136/73
[2023-01-28] MEDS: ISOSORBIDE MONONITRATE 60MG TABLET SR 24HR PO SCH (08:19)
[2023-01-28] MEDS: FERROUS SULFATE 325MG TABLET PO SCH ×2 (08:20→17:27)
[2023-01-28] MEDS: LINAGLIPTIN 5MG TABLET PO SCH (08:21)
[2023-01-28] MEDS: CARVEDILOL 12.5MG TABLET PO SCH ×2 (08:21→20:34)
[2023-01-28] MEDS: AMLODIPINE 10MG TABLET PO SCH (08:21)
[2023-01-28] MEDS: MAGNESIUM OXIDE 400MG TABLET PO SCH (08:21)
[2023-01-28] MEDS: FAMOTIDINE 20MG TABLET PO SCH (08:21)
[2023-01-28] MEDS: ATROPINE SULFATE 1% OPHTH 2ML LEFTEYE SCH ×2 (08:22→17:29)
[2023-01-28] MEDS: BRIMONIDINE 0.2% OPHTH DROPS 5ML LEFTEYE SCH ×3 (08:24→17:29)
[2023-01-28] MEDS: SODIUM BICARBONATE 50 MEQ in SODIUM CHLORIDE 0.45% 1,000 ML IV SCH ×2 (08:50→20:40)
[2023-01-28 11:39] VITALS: BP 135/87
[2023-01-28 15:36] VITALS: BP 127/68
[2023-01-28 20:00] VITALS: BP 132/70
[2023-01-28] MEDS: IMIPRAMINE HCL 25MG TABLET PO SCH (20:34)
[2023-01-28] MEDS: ENOXAPARIN 30MG/0.3ML SYR SUBCUT SCH (20:39)
[2023-01-29] VITALS: BP 132/72
[2023-01-29 04:00] VITALS: BP 142/75
[2023-01-29] MEDS: HYDRALAZINE HCL 100MG TABLET PO SCH ×3 (05:30→21:14)
[2023-01-29] MEDS: CLONIDINE 0.2MG TABLET PO SCH ×3 (05:30→21:13)
[2023-01-29] MEDS: BLOOD SUGAR DIAGNOSTIC STRIP TEST SCH ×4 (06:15→21:11)
[2023-01-29 06:25] LABS: BASOPHILS % 0.4 % (0.0-2.0); EOSINOPHILS % 4.6 % (0.0-5.0); HEMATOCRIT. 30.2 % (42.0-52.0); HEMOGLOBIN. 10.1 g/dL (14.0-18.0); LYMPHOCYTES % 11.3 % (20.0-50.0); MEAN CORPUSCULAR HEMOGLOBIN 29.1 pg (28.0-32.0); MEAN CORPUSCULAR VOLUME 86.8 fL (80.0-94.0); MEAN PLATELET VOLUME 10.3 fl (7.4-10.4); MONOCYTES % 9.5 % (2.0-8.0); NEUTROPHILS % 74.2 % (40.0-76.0); PLATELET 316 x1000/uL (130-400); RED BLOOD CELL COUNT 3.48 mill/uL (4.7-6.1); RED CELL DISTRIBUTION WIDTH 17.9 % (11.6-14.6)
[2023-01-29] MEDS: INSULIN LISPRO 100 UNITS/ML SUBCUT SCH ×4 (08:02→21:16)
[2023-01-29] MEDS: BRIMONIDINE 0.2% OPHTH DROPS 5ML LEFTEYE SCH ×3 (08:20→17:13)
[2023-01-29] MEDS: FAMOTIDINE 20MG TABLET PO SCH (08:20)
[2023-01-29] MEDS: ATROPINE SULFATE 1% OPHTH 2ML LEFTEYE SCH ×2 (08:20→17:13)
[2023-01-29] MEDS: ISOSORBIDE MONONITRATE 60MG TABLET SR 24HR PO SCH (08:20)
[2023-01-29] MEDS: CARVEDILOL 12.5MG TABLET PO SCH ×2 (08:21→21:15)
[2023-01-29] MEDS: FERROUS SULFATE 325MG TABLET PO SCH ×2 (08:21→17:13)
[2023-01-29] MEDS: AMLODIPINE 10MG TABLET PO SCH (08:21)
[2023-01-29 08:22] VITALS: BP 157/82
[2023-01-29] MEDS: LINAGLIPTIN 5MG TABLET PO SCH (08:22)
[2023-01-29] MEDS: MAGNESIUM OXIDE 400MG TABLET PO SCH (08:23)
[2023-01-29] MEDS: CLONIDINE 0.1MG TABLET PO PRN (11:55)
[2023-01-29 12:00] VITALS: BP 168/87
[2023-01-29] MEDS: SODIUM BICARBONATE 50 MEQ in SODIUM CHLORIDE 0.45% 1,000 ML IV SCH (15:12)
[2023-01-29 16:00] VITALS: BP 170/81
[2023-01-29 20:00] VITALS: BP 113/54
[2023-01-29] MEDS: ENOXAPARIN 30MG/0.3ML SYR SUBCUT SCH (21:10)
[2023-01-29] MEDS: IMIPRAMINE HCL 25MG TABLET PO SCH (21:12)
[2023-01-30] VITALS: BP 133/65
[2023-01-30] MEDS: SODIUM BICARBONATE 50 MEQ in SODIUM CHLORIDE 0.45% 1,000 ML IV SCH ×2 (02:30→18:24)
[2023-01-30 04:00] VITALS: BP 137/73
[2023-01-30] MEDS: BLOOD SUGAR DIAGNOSTIC STRIP TEST SCH ×4 (06:26→20:58)
[2023-01-30] MEDS: INSULIN LISPRO 100 UNITS/ML SUBCUT SCH ×4 (06:27→20:58)
[2023-01-30] MEDS: CLONIDINE 0.2MG TABLET PO SCH ×3 (06:55→23:00)
[2023-01-30] MEDS: HYDRALAZINE HCL 100MG TABLET PO SCH ×3 (06:55→23:00)
[2023-01-30 08:00] VITALS: BP 149/84
[2023-01-30] MEDS: AMLODIPINE 10MG TABLET PO SCH (09:58)
[2023-01-30] MEDS: ISOSORBIDE MONONITRATE 60MG TABLET SR 24HR PO SCH (09:58)
[2023-01-30] MEDS: FERROUS SULFATE 325MG TABLET PO SCH ×2 (09:59→18:24)
[2023-01-30] MEDS: LINAGLIPTIN 5MG TABLET PO SCH (09:59)
[2023-01-30] MEDS: CARVEDILOL 12.5MG TABLET PO SCH ×2 (09:59→20:40)
[2023-01-30] MEDS: FAMOTIDINE 20MG TABLET PO SCH (09:59)
[2023-01-30] MEDS: MAGNESIUM OXIDE 400MG TABLET PO SCH (09:59)
[2023-01-30] MEDS: ATROPINE SULFATE 1% OPHTH 2ML LEFTEYE SCH ×2 (10:04→18:25)
[2023-01-30] MEDS: BRIMONIDINE 0.2% OPHTH DROPS 5ML LEFTEYE SCH ×3 (10:05→18:24)
[2023-01-30 16:00] VITALS: BP 131/75
[2023-01-30 17:18] LABS: BASOPHILS % 0.5 % (0.0-2.0); EOSINOPHILS % 4.4 % (0.0-5.0); HEMATOCRIT. 29.8 % (42.0-52.0); HEMOGLOBIN. 9.9 g/dL (14.0-18.0); LYMPHOCYTES % 11.7 % (20.0-50.0); MEAN CORPUSCULAR HEMOGLOBIN 28.8 pg (28.0-32.0); MEAN CORPUSCULAR VOLUME 86.6 fL (80.0-94.0); MEAN PLATELET VOLUME 9.5 fl (7.4-10.4); MONOCYTES % 10.8 % (2.0-8.0); NEUTROPHILS % 72.6 % (40.0-76.0); PLATELET 333 x1000/uL (130-400); RED BLOOD CELL COUNT 3.44 mill/uL (4.7-6.1); RED CELL DISTRIBUTION WIDTH 17.4 % (11.6-14.6)
[2023-01-30 17:36] LABS: CHLORIDE 105 mEq/L (98-107)
[2023-01-30 20:00] VITALS: BP 129/64
[2023-01-30] MEDS ORDERED: SODIUM POLYSTYRENE SULFONATE 15 G/60 ML BOT PO NR (20:15)
[2023-01-30] MEDS: IMIPRAMINE HCL 25MG TABLET PO SCH (20:40)
[2023-01-30] MEDS: ENOXAPARIN 30MG/0.3ML SYR SUBCUT SCH (20:42)
[2023-01-31] VITALS: BP 144/74
[2023-01-31 04:00] VITALS: BP 156/83
[2023-01-31] MEDS: HYDRALAZINE HCL 100MG TABLET PO SCH (06:45)
[2023-01-31] MEDS: SODIUM BICARBONATE 50 MEQ in SODIUM CHLORIDE 0.45% 1,000 ML IV SCH (06:45)
[2023-01-31] MEDS: CLONIDINE 0.2MG TABLET PO SCH (06:46)
[2023-01-31] MEDS: BLOOD SUGAR DIAGNOSTIC STRIP TEST SCH (06:55)
[2023-01-31] MEDS: INSULIN LISPRO 100 UNITS/ML SUBCUT SCH (07:08)
[2023-01-31 08:00] VITALS: BP 85/54
[2023-01-31 08:10] LABS: CHLORIDE 107 mEq/L (98-107)
[2023-01-31] MEDS: FAMOTIDINE 20MG TABLET PO SCH (09:16)
[2023-01-31] MEDS: FERROUS SULFATE 325MG TABLET PO SCH (09:17)
[2023-01-31] MEDS: LINAGLIPTIN 5MG TABLET PO SCH (09:17)
[2023-01-31] MEDS: ISOSORBIDE MONONITRATE 60MG TABLET SR 24HR PO SCH (09:18)
[2023-01-31] MEDS: CARVEDILOL 12.5MG TABLET PO SCH (09:18)
[2023-01-31] MEDS: AMLODIPINE 10MG TABLET PO SCH (09:19)
[2023-01-31] MEDS: MAGNESIUM OXIDE 400MG TABLET PO SCH (09:19)
[2023-01-31] MEDS: BRIMONIDINE 0.2% OPHTH DROPS 5ML LEFTEYE SCH (09:21)
[2023-01-31] MEDS: ATROPINE SULFATE 1% OPHTH 2ML LEFTEYE SCH (09:21)
== END 2023-01-31 09:40 | DRG 291 ==
LOC: ER 13:58 → EDBEDREQ 19:25 → EDBEDREQTM 19:25 → MICUSO 20:08 → EDBEDREQSVC 22:11 → 6EST 01-24 00:52 → 7WST 01-24 06:16 → UNDODISIN 01-28 15:00 → 6EST 01-29 10:37
PROVIDERS: ADMIT Hospitalist; ATTEND Hospitalist
PROC: 4A00X4Z Measurement of Central Nervous Electrical Activity, External Approach (ICD-10-PCS; principal; 2023-01-25)
DX: I13.2 Hypertensive heart and chronic kidney disease with heart failure and with stage 5 chronic kidney disease, or end stage renal disease (principal); G92.8 Other toxic encephalopathy; I50.33 Acute on chronic diastolic (congestive) heart failure; N18.6 End stage renal disease; N17.9 Acute kidney failure, unspecified; E46 Unspecified protein-calorie malnutrition; I16.1 Hypertensive emergency; R62.7 Adult failure to thrive; E11.22 Type 2 diabetes mellitus with diabetic chronic kidney disease; E83.42 Hypomagnesemia; D63.1 Anemia in chronic kidney disease; I16.0 Hypertensive urgency; E11.65 Type 2 diabetes mellitus with hyperglycemia; E11.36 Type 2 diabetes mellitus with diabetic cataract; Z96.649 Presence of unspecified artificial hip joint; Z79.899 Other long term (current) drug therapy; Z99.2 Dependence on renal dialysis; Z90.49 Acquired absence of other specified parts of digestive tract; Z90.79 Acquired absence of other genital organ(s); Z75.1 Person awaiting admission to adequate facility elsewhere; Z79.4 Long term (current) use of insulin; Z85.46 Personal history of malignant neoplasm of prostate; Z68.26 Body mass index [BMI] 26.0-26.9, adult
CPT/HCPCS: 36415; 71045; 71048; 80048; 80053; 81003; 82140; 82550; 82553; 82607; 82728; 82746; 82962; 83540; 83550; 83735; 83880; 84100; 84439; 84443; 84484; 85025; 86705; 86709; 86803; 86850; 86900; 87340; 93005; 93306; 93970; 95816; 97116; 97162; 97166; 97530; 97535; 99285; A6261; C9113; J1650; J1815; J1940; J3490

== ENCOUNTER 2023-02-16 15:46 | Inpatient (IN) | payer OTHER, BC ==
[~2023-02-16] VITALS: Ht 188 cm; Wt 95.5 kg
[~2023-02-16 15:46] MED LIST changes: -DOCU-150 PO; -FURO40TA5 MT; -HYDR100T31 PO
[2023-02-16 17:57] LABS: BASOPHILS % 0.7 % (0.0-2.0); EOSINOPHILS % 11.1 % (0.0-5.0); HEMATOCRIT. 32.7 % (42.0-52.0); HEMOGLOBIN. 10.4 g/dL (14.0-18.0); LYMPHOCYTES % 11.7 % (20.0-50.0); MEAN CORPUSCULAR HEMOGLOBIN 28.5 pg (28.0-32.0); MEAN CORPUSCULAR VOLUME 89.2 fL (80.0-94.0); MEAN PLATELET VOLUME 8.9 fl (7.4-10.4); MONOCYTES % 9.4 % (2.0-8.0); NEUTROPHILS % 67.1 % (40.0-76.0); PLATELET 315 x1000/uL (130-400); RED BLOOD CELL COUNT 3.67 mill/uL (4.7-6.1); RED CELL DISTRIBUTION WIDTH 18.6 % (11.6-14.6)
[2023-02-16 18:03] LABS: CHLORIDE 113 mEq/L (98-107)
[2023-02-16] MEDS ORDERED: DEXTROSE 50% WATER 50ML SYRINGE IV ONE (20:00)
[2023-02-16] MEDS ORDERED: ALBUTEROL (0.083%) 2.5MG/3ML NEB HHN ONE (20:00)
[2023-02-16] MEDS ORDERED: CALCIUM CHLORIDE 1GM/10ML SYR IV ONE (20:00)
[2023-02-16] MEDS ORDERED: INSULIN REGULAR (HUMULIN R) 300UNITS/3ML VIAL IV ONE (20:00)
[2023-02-16] MEDS ORDERED: HYDRALAZINE 20MG/ML VIAL IV NR (21:30)
[2023-02-17] VITALS (14 sets, daily range): BP systolic 132–193; BP diastolic 65–110
[2023-02-17] MEDS ORDERED: DIPHENHYDRAMINE 50MG/ML VIAL IV PRN (01:00)
[2023-02-17] MEDS ORDERED: ZOLPIDEM TARTRATE 5MG TABLET PO PRN (01:00)
[2023-02-17] MEDS ORDERED: MAGNESIUM/ALUMINUM HYDROXIDE/SIMETHICONE 30ML UDC PO PRN (01:00)
[2023-02-17] MEDS ORDERED: DEXTROSE 50% WATER 50ML SYRINGE IV PRN (01:00)
[2023-02-17] MEDS ORDERED: ACETAMINOPHEN 325MG TABLET PO PRN ×2 (01:00)
[2023-02-17] MEDS ORDERED: ENOXAPARIN 40MG/0.4ML SYR SUBCUT SCH (01:00)
[2023-02-17] MEDS ORDERED: ONDANSETRON HCL 4MG/2ML INJ IV PRN (01:00)
[2023-02-17] MEDS ORDERED: GUAIFENESIN 200MG/10ML SUGAR FREE UDC PO PRN (01:00)
[2023-02-17] MEDS: BLOOD SUGAR DIAGNOSTIC STRIP TEST SCH ×5 (01:28→21:00)
[2023-02-17] MEDS: CLONIDINE 0.1MG TABLET PO PRN ×2 (01:52→16:22)
[2023-02-17] MEDS: FERROUS SULFATE 325MG TABLET PO SCH ×3 (01:53→18:26)
[2023-02-17] MEDS: INSULIN LISPRO 100 UNITS/ML SUBCUT SCH ×5 (01:57→23:57)
[2023-02-17] MEDS: HYDRALAZINE 20MG/ML VIAL IV PRN ×2 (04:30→23:54)
[2023-02-17] MEDS: BRIMONIDINE 0.2% OPHTH DROPS 5ML LEFTEYE SCH ×3 (06:00→23:56)
[2023-02-17] MEDS: HYDRALAZINE HCL 100MG TABLET PO SCH ×2 (06:37→14:00)
[2023-02-17] MEDS: CLONIDINE 0.2MG TABLET PO SCH ×2 (06:38→14:00)
[2023-02-17] MEDS: AMLODIPINE 10MG TABLET PO SCH (09:00)
[2023-02-17] MEDS: CARVEDILOL 12.5MG TABLET PO SCH (09:00)
[2023-02-17] MEDS: ISOSORBIDE MONONITRATE 60MG TABLET SR 24HR PO SCH (09:00)
[2023-02-17] MEDS: FOLIC ACID/VITAMIN B COMP W-C TABLET PO SCH (09:33)
[2023-02-17] MEDS: MAGNESIUM OXIDE 400MG TABLET PO SCH (09:34)
[2023-02-17] MEDS: LINAGLIPTIN 5MG TABLET PO SCH (09:34)
[2023-02-17] MEDS: ATROPINE SULFATE 1% OPHTH 2ML LEFTEYE SCH ×2 (09:35→23:55)
[2023-02-17] MEDS: DOCUSATE SODIUM 100MG CAPSULE PO SCH ×2 (09:36→17:43)
[2023-02-17] MEDS: ENOXAPARIN 30MG/0.3ML SYR SUBCUT SCH (09:38)
[2023-02-17] MEDS ORDERED: SODIUM POLYSTYRENE SULFONATE 15 G/60 ML BOT PO NR (12:00)
[2023-02-17] MEDS: FUROSEMIDE 40MG/4ML VIAL IVP SCH (13:02)
[2023-02-17 13:58] LABS: HEPATITIS B SURFACE ANTIGEN NEGATIVE
[2023-02-17] MEDS: IMIPRAMINE HCL 25MG TABLET PO SCH (21:00)
[2023-02-17] MEDS ORDERED: FAMOTIDINE 20MG TABLET PO SCH (21:00)
[2023-02-18] VITALS (12 sets, daily range): BP systolic 122–189; BP diastolic 80–97
[2023-02-18] MEDS: CLONIDINE 0.2MG TABLET PO SCH ×4 (02:38→21:50)
[2023-02-18] MEDS: CARVEDILOL 12.5MG TABLET PO SCH ×3 (02:39→21:51)
[2023-02-18] MEDS: HYDRALAZINE HCL 100MG TABLET PO SCH ×4 (02:39→21:50)
[2023-02-18] MEDS: HYDRALAZINE 20MG/ML VIAL IV PRN (05:36)
[2023-02-18] MEDS: BLOOD SUGAR DIAGNOSTIC STRIP TEST SCH ×4 (07:07→21:00)
[2023-02-18] MEDS: BRIMONIDINE 0.2% OPHTH DROPS 5ML LEFTEYE SCH ×3 (07:13→21:52)
[2023-02-18] MEDS: INSULIN LISPRO 100 UNITS/ML SUBCUT SCH ×4 (08:10→21:51)
[2023-02-18] MEDS: ENOXAPARIN 30MG/0.3ML SYR SUBCUT SCH (09:09)
[2023-02-18] MEDS: FUROSEMIDE 40MG/4ML VIAL IVP SCH (09:09)
[2023-02-18] MEDS: FOLIC ACID/VITAMIN B COMP W-C TABLET PO SCH (09:10)
[2023-02-18] MEDS: ATROPINE SULFATE 1% OPHTH 2ML LEFTEYE SCH ×2 (09:10→21:52)
[2023-02-18] MEDS: ISOSORBIDE MONONITRATE 60MG TABLET SR 24HR PO SCH (09:10)
[2023-02-18] MEDS: AMLODIPINE 10MG TABLET PO SCH (09:10)
[2023-02-18] MEDS: MAGNESIUM OXIDE 400MG TABLET PO SCH (09:10)
[2023-02-18] MEDS: FERROUS SULFATE 325MG TABLET PO SCH ×2 (09:10→17:31)
[2023-02-18] MEDS: DOCUSATE SODIUM 100MG CAPSULE PO SCH ×2 (09:11→17:31)
[2023-02-18] MEDS: LINAGLIPTIN 5MG TABLET PO SCH (09:11)
[2023-02-18 17:42] LABS: INR 1.1; PROTHROMBIN TIME 11.4 sec (9.6-11.0)
[2023-02-18] MEDS: IMIPRAMINE HCL 25MG TABLET PO SCH (21:50)
[2023-02-18] MEDS: INSULIN GLARGINE 100 UNITS/ML SUBCUT SCH (21:52)
[2023-02-19] VITALS (7 sets, daily range): BP systolic 147–165; BP diastolic 67–87
[2023-02-19] MEDS: CLONIDINE 0.2MG TABLET PO SCH ×3 (05:01→21:57)
[2023-02-19] MEDS: BRIMONIDINE 0.2% OPHTH DROPS 5ML LEFTEYE SCH ×3 (05:01→21:55)
[2023-02-19] MEDS: HYDRALAZINE HCL 100MG TABLET PO SCH ×3 (05:01→21:55)
[2023-02-19 06:20] LABS: BASOPHILS % 0.7 % (0.0-2.0); HEMATOCRIT. 32.4 % (42.0-52.0); HEMOGLOBIN. 10.7 g/dL (14.0-18.0); MEAN CORPUSCULAR HEMOGLOBIN 28.5 pg (28.0-32.0); MEAN CORPUSCULAR VOLUME 86.1 fL (80.0-94.0); MONOCYTES % 13.7 % (2.0-8.0); NEUTROPHILS % 61.6 % (40.0-76.0); PLATELET 287 x1000/uL (130-400); RED BLOOD CELL COUNT 3.76 mill/uL (4.7-6.1); RED CELL DISTRIBUTION WIDTH 17.7 % (11.6-14.6)
[2023-02-19] MEDS: BLOOD SUGAR DIAGNOSTIC STRIP TEST SCH ×4 (07:40→21:00)
[2023-02-19] MEDS: INSULIN LISPRO 100 UNITS/ML SUBCUT SCH ×4 (08:10→21:54)
[2023-02-19] MEDS: LINAGLIPTIN 5MG TABLET PO SCH (09:01)
[2023-02-19] MEDS: CARVEDILOL 12.5MG TABLET PO SCH ×2 (09:02→21:55)
[2023-02-19] MEDS: DOCUSATE SODIUM 100MG CAPSULE PO SCH ×2 (09:02→17:48)
[2023-02-19] MEDS: FOLIC ACID/VITAMIN B COMP W-C TABLET PO SCH (09:02)
[2023-02-19] MEDS: FERROUS SULFATE 325MG TABLET PO SCH ×2 (09:02→17:49)
[2023-02-19] MEDS: AMLODIPINE 10MG TABLET PO SCH (09:02)
[2023-02-19] MEDS: ISOSORBIDE MONONITRATE 60MG TABLET SR 24HR PO SCH (09:02)
[2023-02-19] MEDS: ENOXAPARIN 30MG/0.3ML SYR SUBCUT SCH (09:03)
[2023-02-19] MEDS: MAGNESIUM OXIDE 400MG TABLET PO SCH (09:05)
[2023-02-19] MEDS: ATROPINE SULFATE 1% OPHTH 2ML LEFTEYE SCH ×2 (09:07→21:55)
[2023-02-19] MEDS: FUROSEMIDE 40MG/4ML VIAL IVP SCH (11:29)
[2023-02-19] MEDS: INSULIN GLARGINE 100 UNITS/ML SUBCUT SCH (21:52)
[2023-02-19] MEDS: FAMOTIDINE 20MG TABLET PO SCH (21:52)
[2023-02-19] MEDS: IMIPRAMINE HCL 25MG TABLET PO SCH (22:01)
[2023-02-20] VITALS (25 sets, daily range): BP systolic 131–181; BP diastolic 68–98
[2023-02-20] MEDS: CLONIDINE 0.2MG TABLET PO SCH (05:35)
[2023-02-20] MEDS: BLOOD SUGAR DIAGNOSTIC STRIP TEST SCH ×4 (05:35→20:23)
[2023-02-20] MEDS: HYDRALAZINE HCL 100MG TABLET PO SCH ×3 (05:35→21:08)
[2023-02-20 05:42] LABS: HEMATOCRIT. 30.2 % (42.0-52.0); HEMOGLOBIN. 10.1 g/dL (14.0-18.0); MEAN CORPUSCULAR VOLUME 86.3 fL (80.0-94.0); MEAN PLATELET VOLUME 8.8 fl (7.4-10.4); PLATELET 279 x1000/uL (130-400); RED BLOOD CELL COUNT 3.49 mill/uL (4.7-6.1); RED CELL DISTRIBUTION WIDTH 17.1 % (11.6-14.6)
[2023-02-20] MEDS: BRIMONIDINE 0.2% OPHTH DROPS 5ML LEFTEYE SCH ×3 (05:49→21:08)
[2023-02-20] MEDS ORDERED: CEFAZOLIN 1000MG PREMIX 50 ML IV NR (07:30)
[2023-02-20] MEDS: INSULIN LISPRO 100 UNITS/ML SUBCUT SCH ×4 (08:10→21:09)
[2023-02-20 09:00] LABS: PLATELET ESTIMATE NORMAL
[2023-02-20] MEDS ORDERED: FENTANYL CITRATE/PF 50MCG/ML 2ML VIAL ONE (09:15)
[2023-02-20] MEDS ORDERED: LIDOCAINE HCL 1% 10 MG/ML 10ML VIAL ONE (09:20)
[2023-02-20] MEDS ORDERED: LIDOCAINE HCL/EPINEPHRINE 1%-EPI 1:100,000 20 ML VIAL ONE (09:20)
[2023-02-20] MEDS ORDERED: FENTANYL CITRATE/PF 50MCG/ML 2ML VIAL IV ONE ×2 (10:15→10:30)
[2023-02-20] MEDS ORDERED: DILTIAZEM HCL 5MG/ML 5ML VIAL IV NR (10:45)
[2023-02-20] MEDS: ISOSORBIDE MONONITRATE 60MG TABLET SR 24HR PO SCH (10:49)
[2023-02-20] MEDS: FOLIC ACID/VITAMIN B COMP W-C TABLET PO SCH (10:49)
[2023-02-20] MEDS: DOCUSATE SODIUM 100MG CAPSULE PO SCH ×2 (10:50→17:35)
[2023-02-20] MEDS: CARVEDILOL 12.5MG TABLET PO SCH ×2 (10:50→21:08)
[2023-02-20] MEDS: FERROUS SULFATE 325MG TABLET PO SCH ×2 (10:50→17:35)
[2023-02-20] MEDS: LINAGLIPTIN 5MG TABLET PO SCH (10:50)
[2023-02-20] MEDS: ENOXAPARIN 30MG/0.3ML SYR SUBCUT SCH (10:50)
[2023-02-20] MEDS: MAGNESIUM OXIDE 400MG TABLET PO SCH (10:52)
[2023-02-20] MEDS: ATROPINE SULFATE 1% OPHTH 2ML LEFTEYE SCH ×2 (10:53→21:08)
[2023-02-20] MEDS: FUROSEMIDE 40MG/4ML VIAL IVP SCH (11:03)
[2023-02-20] MEDS: DILTIAZEM HCL 60MG TABLET PO SCH ×2 (14:32→21:08)
[2023-02-20] MEDS: CLONIDINE 0.1MG TABLET PO SCH ×2 (14:33→21:07)
[2023-02-20] MEDS ORDERED: TRAMADOL 50MG TABLET PO PRN (17:30)
[2023-02-20] MEDS ORDERED: NALOXONE HCL 0.4MG/ML VIAL IV PRN (17:30)
[2023-02-20] MEDS: IMIPRAMINE HCL 25MG TABLET PO SCH (21:08)
[2023-02-20] MEDS: INSULIN GLARGINE 100 UNITS/ML SUBCUT SCH (21:09)
[2023-02-21] VITALS: BP 152/76
[2023-02-21 04:00] VITALS: BP 134/59
[2023-02-21] MEDS: CLONIDINE 0.1MG TABLET PO SCH ×3 (05:29→21:03)
[2023-02-21] MEDS: HYDRALAZINE HCL 100MG TABLET PO SCH ×3 (05:29→21:03)
[2023-02-21] MEDS: BRIMONIDINE 0.2% OPHTH DROPS 5ML LEFTEYE SCH ×3 (05:30→21:02)
[2023-02-21] MEDS: DILTIAZEM HCL 60MG TABLET PO SCH ×3 (05:31→21:03)
[2023-02-21 06:33] LABS: HEMATOCRIT. 32.8 % (42.0-52.0); MEAN CORPUSCULAR HEMOGLOBIN 28.6 pg (28.0-32.0); MEAN PLATELET VOLUME 8.5 fl (7.4-10.4); PLATELET 284 x1000/uL (130-400); RED BLOOD CELL COUNT 3.86 mill/uL (4.7-6.1); RED CELL DISTRIBUTION WIDTH 17.3 % (11.6-14.6)
[2023-02-21] MEDS: BLOOD SUGAR DIAGNOSTIC STRIP TEST SCH ×4 (06:42→20:11)
[2023-02-21 08:00] VITALS: BP 143/63
[2023-02-21] MEDS: INSULIN LISPRO 100 UNITS/ML SUBCUT SCH ×4 (08:10→21:03)
[2023-02-21] MEDS: FOLIC ACID/VITAMIN B COMP W-C TABLET PO SCH (09:11)
[2023-02-21] MEDS: FERROUS SULFATE 325MG TABLET PO SCH ×2 (09:11→17:28)
[2023-02-21] MEDS: CARVEDILOL 12.5MG TABLET PO SCH (09:11)
[2023-02-21] MEDS: ISOSORBIDE MONONITRATE 60MG TABLET SR 24HR PO SCH (09:11)
[2023-02-21] MEDS: DOCUSATE SODIUM 100MG CAPSULE PO SCH ×2 (09:11→17:28)
[2023-02-21] MEDS: LINAGLIPTIN 5MG TABLET PO SCH (09:11)
[2023-02-21] MEDS: ENOXAPARIN 30MG/0.3ML SYR SUBCUT SCH (09:12)
[2023-02-21] MEDS: MAGNESIUM OXIDE 400MG TABLET PO SCH (09:13)
[2023-02-21] MEDS: ATROPINE SULFATE 1% OPHTH 2ML LEFTEYE SCH ×2 (09:14→21:02)
[2023-02-21] MEDS: FUROSEMIDE 40MG/4ML VIAL IVP SCH (09:32)
[2023-02-21 12:00] VITALS: BP 155/79
[2023-02-21 16:00] VITALS: BP 151/76
[2023-02-21 19:36] LABS: PLATELET ESTIMATE NORMAL
[2023-02-21 20:30] VITALS: BP 150/66
[2023-02-21] MEDS: INSULIN GLARGINE 100 UNITS/ML SUBCUT SCH (21:03)
[2023-02-21] MEDS: FAMOTIDINE 20MG TABLET PO SCH (21:03)
[2023-02-21] MEDS: CARVEDILOL 6.25 MG TABLET PO SCH (21:04)
[2023-02-21] MEDS: IMIPRAMINE HCL 25MG TABLET PO SCH (21:04)
[2023-02-22] VITALS (14 sets, daily range): BP systolic 131–178; BP diastolic 62–88
[2023-02-22] MEDS: BRIMONIDINE 0.2% OPHTH DROPS 5ML LEFTEYE SCH ×3 (05:06→21:37)
[2023-02-22] MEDS: DILTIAZEM HCL 60MG TABLET PO SCH ×3 (05:06→21:37)
[2023-02-22] MEDS: HYDRALAZINE HCL 100MG TABLET PO SCH ×3 (05:07→21:35)
[2023-02-22] MEDS: CLONIDINE 0.1MG TABLET PO SCH ×3 (05:07→21:36)
[2023-02-22] MEDS: BLOOD SUGAR DIAGNOSTIC STRIP TEST SCH ×4 (06:15→20:25)
[2023-02-22 06:37] LABS: BASOPHILS % 0.7 % (0.0-2.0); EOSINOPHILS % 8.1 % (0.0-5.0); HEMATOCRIT. 30.6 % (42.0-52.0); HEMOGLOBIN. 10.5 g/dL (14.0-18.0); LYMPHOCYTES % 17.8 % (20.0-50.0); MEAN CORPUSCULAR HEMOGLOBIN 29.2 pg (28.0-32.0); MEAN CORPUSCULAR VOLUME 84.9 fL (80.0-94.0); MEAN PLATELET VOLUME 8.4 fl (7.4-10.4); MONOCYTES % 14.4 % (2.0-8.0); PLATELET 275 x1000/uL (130-400); RED CELL DISTRIBUTION WIDTH 17.2 % (11.6-14.6)
[2023-02-22] MEDS: INSULIN LISPRO 100 UNITS/ML SUBCUT SCH ×4 (08:10→21:00)
[2023-02-22] MEDS: FOLIC ACID/VITAMIN B COMP W-C TABLET PO SCH (08:40)
[2023-02-22] MEDS: FERROUS SULFATE 325MG TABLET PO SCH ×2 (08:40→18:18)
[2023-02-22] MEDS: DOCUSATE SODIUM 100MG CAPSULE PO SCH ×2 (08:41→17:00)
[2023-02-22] MEDS: LINAGLIPTIN 5MG TABLET PO SCH (08:41)
[2023-02-22] MEDS: MAGNESIUM OXIDE 400MG TABLET PO SCH (08:43)
[2023-02-22] MEDS: ENOXAPARIN 30MG/0.3ML SYR SUBCUT SCH (08:45)
[2023-02-22] MEDS: ISOSORBIDE MONONITRATE 60MG TABLET SR 24HR PO SCH (08:59)
[2023-02-22] MEDS: CARVEDILOL 6.25 MG TABLET PO SCH ×2 (08:59→21:37)
[2023-02-22] MEDS: FUROSEMIDE 40MG/4ML VIAL IVP SCH (08:59)
[2023-02-22] MEDS: ATROPINE SULFATE 1% OPHTH 2ML LEFTEYE SCH ×2 (08:59→21:38)
[2023-02-22] MEDS: IMIPRAMINE HCL 25MG TABLET PO SCH (21:36)
[2023-02-22] MEDS: INSULIN GLARGINE 100 UNITS/ML SUBCUT SCH (21:43)
[2023-02-23] VITALS: BP 142/72
[2023-02-23 00:01] LABS: PROTHROMBIN TIME 10.6 sec (9.6-11.0)
[2023-02-23 04:00] VITALS: BP 151/68
[2023-02-23] MEDS: CLONIDINE 0.1MG TABLET PO SCH ×3 (05:48→21:01)
[2023-02-23] MEDS: DILTIAZEM HCL 60MG TABLET PO SCH ×3 (05:49→21:01)
[2023-02-23] MEDS: BRIMONIDINE 0.2% OPHTH DROPS 5ML LEFTEYE SCH ×3 (05:50→21:03)
[2023-02-23] MEDS: HYDRALAZINE HCL 100MG TABLET PO SCH ×3 (05:50→21:02)
[2023-02-23] MEDS: BLOOD SUGAR DIAGNOSTIC STRIP TEST SCH ×4 (06:59→20:16)
[2023-02-23 07:52] LABS: BASOPHILS % 0.6 % (0.0-2.0); EOSINOPHILS % 6.3 % (0.0-5.0); HEMOGLOBIN. 11.2 g/dL (14.0-18.0); LYMPHOCYTES % 15.2 % (20.0-50.0); MEAN CORPUSCULAR HEMOGLOBIN 28.8 pg (28.0-32.0); MEAN CORPUSCULAR VOLUME 85.3 fL (80.0-94.0); MEAN PLATELET VOLUME 9.3 fl (7.4-10.4); MONOCYTES % 11.5 % (2.0-8.0); NEUTROPHILS % 66.4 % (40.0-76.0); PLATELET 262 x1000/uL (130-400); RED BLOOD CELL COUNT 3.87 mill/uL (4.7-6.1); RED CELL DISTRIBUTION WIDTH 16.7 % (11.6-14.6)
[2023-02-23 08:00] VITALS: BP 137/76
[2023-02-23] MEDS: ENOXAPARIN 30MG/0.3ML SYR SUBCUT SCH (08:03)
[2023-02-23] MEDS: INSULIN LISPRO 100 UNITS/ML SUBCUT SCH ×4 (08:07→20:59)
[2023-02-23] MEDS: FERROUS SULFATE 325MG TABLET PO SCH ×2 (09:09→17:29)
[2023-02-23] MEDS: DOCUSATE SODIUM 100MG CAPSULE PO SCH ×2 (09:13→17:29)
[2023-02-23] MEDS: FOLIC ACID/VITAMIN B COMP W-C TABLET PO SCH (09:13)
[2023-02-23] MEDS: MAGNESIUM OXIDE 400MG TABLET PO SCH (09:13)
[2023-02-23] MEDS: LINAGLIPTIN 5MG TABLET PO SCH (09:13)
[2023-02-23] MEDS: ISOSORBIDE MONONITRATE 60MG TABLET SR 24HR PO SCH (09:13)
[2023-02-23] MEDS: CARVEDILOL 6.25 MG TABLET PO SCH ×2 (09:13→21:02)
[2023-02-23] MEDS: FUROSEMIDE 40MG/4ML VIAL IVP SCH (09:13)
[2023-02-23] MEDS: ATROPINE SULFATE 1% OPHTH 2ML LEFTEYE SCH ×2 (09:14→21:00)
[2023-02-23] MEDS ORDERED: SODIUM BICARBONATE 4% (2.4MEQ) 5ML VIAL IV ONE (09:19)
[2023-02-23 12:00] VITALS: BP 145/75
[2023-02-23 16:00] VITALS: BP 138/71
[2023-02-23 20:00] VITALS: BP 158/71
[2023-02-23] MEDS: INSULIN GLARGINE 100 UNITS/ML SUBCUT SCH (21:01)
[2023-02-23] MEDS: IMIPRAMINE HCL 25MG TABLET PO SCH (21:01)
[2023-02-23] MEDS: FAMOTIDINE 20MG TABLET PO SCH (21:04)
[2023-02-24 00:20] VITALS: BP 154/73
[2023-02-24 04:00] VITALS: BP 161/81
[2023-02-24] MEDS: HYDRALAZINE HCL 100MG TABLET PO SCH ×3 (05:17→21:58)
[2023-02-24] MEDS: DILTIAZEM HCL 60MG TABLET PO SCH ×3 (05:17→21:49)
[2023-02-24] MEDS: BRIMONIDINE 0.2% OPHTH DROPS 5ML LEFTEYE SCH ×3 (05:17→21:53)
[2023-02-24] MEDS: CLONIDINE 0.1MG TABLET PO SCH ×3 (05:18→21:50)
[2023-02-24 05:28] LABS: BASOPHILS % 0.5 % (0.0-2.0); EOSINOPHILS % 5.5 % (0.0-5.0); HEMATOCRIT. 35.1 % (42.0-52.0); HEMOGLOBIN. 11.5 g/dL (14.0-18.0); LYMPHOCYTES % 12.4 % (20.0-50.0); MEAN CORPUSCULAR HEMOGLOBIN 27.9 pg (28.0-32.0); MEAN CORPUSCULAR VOLUME 85.3 fL (80.0-94.0); MEAN PLATELET VOLUME 9.1 fl (7.4-10.4); NEUTROPHILS % 69.6 % (40.0-76.0); PLATELET 304 x1000/uL (130-400); RED BLOOD CELL COUNT 4.12 mill/uL (4.7-6.1)
[2023-02-24] MEDS: BLOOD SUGAR DIAGNOSTIC STRIP TEST SCH ×4 (06:40→21:14)
[2023-02-24 08:00] VITALS: BP 163/66
[2023-02-24] MEDS: INSULIN LISPRO 100 UNITS/ML SUBCUT SCH ×4 (08:10→21:51)
[2023-02-24] MEDS: FERROUS SULFATE 325MG TABLET PO SCH ×2 (09:07→17:48)
[2023-02-24] MEDS: ISOSORBIDE MONONITRATE 60MG TABLET SR 24HR PO SCH (09:07)
[2023-02-24] MEDS: LINAGLIPTIN 5MG TABLET PO SCH (09:07)
[2023-02-24] MEDS: CARVEDILOL 6.25 MG TABLET PO SCH ×2 (09:08→21:49)
[2023-02-24] MEDS: FOLIC ACID/VITAMIN B COMP W-C TABLET PO SCH (09:08)
[2023-02-24] MEDS: MAGNESIUM OXIDE 400MG TABLET PO SCH (09:09)
[2023-02-24] MEDS: FUROSEMIDE 40MG/4ML VIAL IVP SCH (09:09)
[2023-02-24] MEDS: ENOXAPARIN 30MG/0.3ML SYR SUBCUT SCH (09:09)
[2023-02-24] MEDS: ATROPINE SULFATE 1% OPHTH 2ML LEFTEYE SCH ×2 (09:10→21:47)
[2023-02-24] MEDS: DOCUSATE SODIUM 100MG CAPSULE PO SCH ×2 (09:10→17:48)
[2023-02-24 12:00] VITALS: BP 129/81
[2023-02-24] MEDS ORDERED: GUAIFENESIN-DM 200MG-20MG/10ML UDC PO PRN (15:15)
[2023-02-24 16:00] VITALS: BP 152/104
[2023-02-24 20:00] VITALS: BP 161/79
[2023-02-24] MEDS: IMIPRAMINE HCL 25MG TABLET PO SCH (21:49)
[2023-02-24] MEDS: INSULIN GLARGINE 100 UNITS/ML SUBCUT SCH (21:51)
[2023-02-25] VITALS (10 sets, daily range): BP systolic 112–176; BP diastolic 66–88
[2023-02-25] MEDS: HYDRALAZINE HCL 100MG TABLET PO SCH ×3 (06:01→22:07)
[2023-02-25] MEDS: DILTIAZEM HCL 60MG TABLET PO SCH (06:01)
[2023-02-25] MEDS: CLONIDINE 0.1MG TABLET PO SCH ×3 (06:01→22:07)
[2023-02-25] MEDS: ATROPINE SULFATE 1% OPHTH 2ML LEFTEYE SCH ×2 (06:02→22:08)
[2023-02-25] MEDS: BRIMONIDINE 0.2% OPHTH DROPS 5ML LEFTEYE SCH ×3 (06:03→22:08)
[2023-02-25] MEDS: BLOOD SUGAR DIAGNOSTIC STRIP TEST SCH ×4 (06:03→22:16)
[2023-02-25 07:01] LABS: BASOPHILS % 0.6 % (0.0-2.0); EOSINOPHILS % 6.4 % (0.0-5.0); HEMATOCRIT. 32.6 % (42.0-52.0); HEMOGLOBIN. 11.1 g/dL (14.0-18.0); LYMPHOCYTES % 18.1 % (20.0-50.0); MEAN CORPUSCULAR HEMOGLOBIN 28.8 pg (28.0-32.0); MEAN CORPUSCULAR VOLUME 84.5 fL (80.0-94.0); MEAN PLATELET VOLUME 9.6 fl (7.4-10.4); MONOCYTES % 11.7 % (2.0-8.0); NEUTROPHILS % 63.2 % (40.0-76.0); PLATELET 304 x1000/uL (130-400); RED BLOOD CELL COUNT 3.85 mill/uL (4.7-6.1)
[2023-02-25] MEDS: INSULIN LISPRO 100 UNITS/ML SUBCUT SCH ×4 (08:10→22:24)
[2023-02-25] MEDS: CARVEDILOL 6.25 MG TABLET PO SCH (09:00)
[2023-02-25] MEDS: ISOSORBIDE MONONITRATE 60MG TABLET SR 24HR PO SCH (09:00)
[2023-02-25] MEDS: FERROUS SULFATE 325MG TABLET PO SCH ×2 (09:15→18:01)
[2023-02-25] MEDS: FUROSEMIDE 40MG/4ML VIAL IVP SCH (09:15)
[2023-02-25] MEDS: DOCUSATE SODIUM 100MG CAPSULE PO SCH ×2 (09:15→18:01)
[2023-02-25] MEDS: FOLIC ACID/VITAMIN B COMP W-C TABLET PO SCH (09:15)
[2023-02-25] MEDS: MAGNESIUM OXIDE 400MG TABLET PO SCH (09:16)
[2023-02-25] MEDS: ENOXAPARIN 30MG/0.3ML SYR SUBCUT SCH (09:17)
[2023-02-25] MEDS: LINAGLIPTIN 5MG TABLET PO SCH (09:26)
[2023-02-25] MEDS: DILTIAZEM HCL 30MG TABLET PO SCH ×2 (15:13→22:06)
[2023-02-25] MEDS: IMIPRAMINE HCL 25MG TABLET PO SCH (22:06)
[2023-02-25] MEDS: FAMOTIDINE 20MG TABLET PO SCH (22:07)
[2023-02-25] MEDS: CARVEDILOL 3.125 MG TABLET PO SCH (22:07)
[2023-02-25] MEDS: INSULIN GLARGINE 100 UNITS/ML SUBCUT SCH (22:24)
[2023-02-26] VITALS: BP 178/100
[2023-02-26 04:00] VITALS: BP 152/83
[2023-02-26] MEDS: BRIMONIDINE 0.2% OPHTH DROPS 5ML LEFTEYE SCH ×2 (06:18→12:54)
[2023-02-26] MEDS: CLONIDINE 0.1MG TABLET PO SCH ×2 (06:20→12:53)
[2023-02-26] MEDS: HYDRALAZINE HCL 100MG TABLET PO SCH ×2 (06:20→12:53)
[2023-02-26] MEDS: DILTIAZEM HCL 30MG TABLET PO SCH (06:20)
[2023-02-26] MEDS: BLOOD SUGAR DIAGNOSTIC STRIP TEST SCH ×2 (06:25→12:52)
[2023-02-26 08:00] VITALS: BP 174/94
[2023-02-26] MEDS: ISOSORBIDE MONONITRATE 60MG TABLET SR 24HR PO SCH (08:54)
[2023-02-26] MEDS: FERROUS SULFATE 325MG TABLET PO SCH (08:55)
[2023-02-26] MEDS: CARVEDILOL 3.125 MG TABLET PO SCH (08:55)
[2023-02-26] MEDS: MAGNESIUM OXIDE 400MG TABLET PO SCH (08:55)
[2023-02-26] MEDS: DOCUSATE SODIUM 100MG CAPSULE PO SCH (08:55)
[2023-02-26] MEDS: FOLIC ACID/VITAMIN B COMP W-C TABLET PO SCH (08:55)
[2023-02-26] MEDS: LINAGLIPTIN 5MG TABLET PO SCH (08:55)
[2023-02-26] MEDS: FUROSEMIDE 40MG/4ML VIAL IVP SCH (08:55)
[2023-02-26] MEDS: ENOXAPARIN 30MG/0.3ML SYR SUBCUT SCH (08:56)
[2023-02-26] MEDS: ATROPINE SULFATE 1% OPHTH 2ML LEFTEYE SCH (08:56)
[2023-02-26] MEDS: INSULIN LISPRO 100 UNITS/ML SUBCUT SCH ×2 (08:57→12:55)
[2023-02-26 12:00] VITALS: BP 155/73
[2023-02-26 12:29] VITALS: BP 155/73
[2023-02-26] MEDS ORDERED: DILTIAZEM HCL 60MG TABLET PO SCH (14:00)
[2023-02-26] MEDS ORDERED: CARVEDILOL 6.25 MG TABLET PO SCH (21:00)
== END 2023-02-26 13:20 | DRG 640 ==
LOC: ER 15:46 → 7WST 20:56 → EDBEDREQ 21:06 → EDBEDREQTM 21:06
PROVIDERS: ADMIT Internal Medicine; ATTEND Internal Medicine
PROC: 02HV33Z Insertion of Infusion Device into Superior Vena Cava, Percutaneous Approach (ICD-10-PCS; 2023-02-17)
PROC: B548ZZA Ultrasonography of Superior Vena Cava, Guidance (ICD-10-PCS; 2023-02-17)
PROC: 5A1D70Z Performance of Urinary Filtration, Intermittent, Less than 6 Hours Per Day (ICD-10-PCS; 2023-02-17)
PROC: 5A1D70Z Performance of Urinary Filtration, Intermittent, Less than 6 Hours Per Day (ICD-10-PCS; 2023-02-18)
PROC: 0JH63XZ Insertion of Tunneled Vascular Access Device into Chest Subcutaneous Tissue and Fascia, Percutaneous Approach (ICD-10-PCS; 2023-02-20)
PROC: 02HV33Z Insertion of Infusion Device into Superior Vena Cava, Percutaneous Approach (ICD-10-PCS; 2023-02-20)
PROC: B5181ZA Fluoroscopy of Superior Vena Cava using Low Osmolar Contrast, Guidance (ICD-10-PCS; 2023-02-20)
PROC: B548ZZA Ultrasonography of Superior Vena Cava, Guidance (ICD-10-PCS; 2023-02-20)
PROC: 5A1D70Z Performance of Urinary Filtration, Intermittent, Less than 6 Hours Per Day (ICD-10-PCS; 2023-02-20)
PROC: 5A1D70Z Performance of Urinary Filtration, Intermittent, Less than 6 Hours Per Day (ICD-10-PCS; 2023-02-21)
PROC: 5A1D70Z Performance of Urinary Filtration, Intermittent, Less than 6 Hours Per Day (ICD-10-PCS; 2023-02-22)
PROC: 0W9B3ZZ Drainage of Left Pleural Cavity, Percutaneous Approach (ICD-10-PCS; principal; 2023-02-23)
PROC: 5A1D70Z Performance of Urinary Filtration, Intermittent, Less than 6 Hours Per Day (ICD-10-PCS; 2023-02-25)
DX: E87.5 Hyperkalemia (principal); N18.6 End stage renal disease; N17.9 Acute kidney failure, unspecified; G95.29 Other cord compression; I13.2 Hypertensive heart and chronic kidney disease with heart failure and with stage 5 chronic kidney disease, or end stage renal disease; I47.1 Supraventricular tachycardia; J91.8 Pleural effusion in other conditions classified elsewhere; F32.A Depression, unspecified; E11.36 Type 2 diabetes mellitus with diabetic cataract; F48.8 Other specified nonpsychotic mental disorders; E11.22 Type 2 diabetes mellitus with diabetic chronic kidney disease; E83.42 Hypomagnesemia; I07.1 Rheumatic tricuspid insufficiency; I27.21 Secondary pulmonary arterial hypertension; M54.12 Radiculopathy, cervical region; R74.01 Elevation of levels of liver transaminase levels; Z20.822 Contact with and (suspected) exposure to COVID-19; I48.91 Unspecified atrial fibrillation; I50.9 Heart failure, unspecified; R62.7 Adult failure to thrive; Z96.642 Presence of left artificial hip joint; Z96.649 Presence of unspecified artificial hip joint; Z75.1 Person awaiting admission to adequate facility elsewhere; Z79.4 Long term (current) use of insulin; Z79.899 Other long term (current) drug therapy; Z85.46 Personal history of malignant neoplasm of prostate; Z86.73 Personal history of transient ischemic attack (TIA), and cerebral infarction without residual deficits; Z90.79 Acquired absence of other genital organ(s); Z99.2 Dependence on renal dialysis; Z90.49 Acquired absence of other specified parts of digestive tract; Z68.27 Body mass index [BMI] 27.0-27.9, adult; Z87.441 Personal history of nephrotic syndrome
CPT/HCPCS: 32555; 36415; 36556; 36558; 36589; 70360; 71045; 76604; 76937; 77001; 80048; 80053; 82962; 83036; 83615; 83735; 83986; 84100; 84155; 85025; 86705; 86709; 86803; 87340; 87426; 88108; 90935; 93005; 93970; 97116; 97162; 97530; 99152; 99153; 99285; C1750; C1752; C1769; J0360; J0690; J1642; J1650; J1815; J1940; J3010; J3490; A4315; G0500

== ENCOUNTER 2023-04-21 00:17 | Inpatient (IN) | payer OTHER, BC ==
[~2023-04-21] VITALS: Ht 172.7 cm; Wt 85.7 kg
[2023-04-21] VITALS (12 sets, daily range): BP systolic 143–198; BP diastolic 79–92; PULSE 92–112; RESP 14–24; TEMP 97.6–98.3; O2SAT 100
[~2023-04-21 00:17] MED LIST changes: -ATRO2DRO LEFTEYE; +ATRO2DRO6 LEFTEYE
[2023-04-21 03:16] LABS: BASOPHILS % 0.3 % (0.0-2.0); EOSINOPHILS % 0.1 % (0.0-5.0); HEMATOCRIT. 37.7 % (42.0-52.0); HEMOGLOBIN. 12.6 g/dL (14.0-18.0); MEAN CORPUSCULAR HEMOGLOBIN 29.1 pg (28.0-32.0); MEAN CORPUSCULAR VOLUME 86.8 fL (80.0-94.0); MEAN PLATELET VOLUME 9.2 fl (7.4-10.4); NEUTROPHILS % 84.6 % (40.0-76.0); PLATELET 304 x1000/uL (130-400); RED BLOOD CELL COUNT 4.34 mill/uL (4.7-6.1); RED CELL DISTRIBUTION WIDTH 15.2 % (11.6-14.6)
[2023-04-21 03:26] LABS: CHLORIDE 103 mEq/L (98-107)
[2023-04-21 03:36] LABS: BETA HYDROXYBUTYRATE 0.3 mMol/L (0.0-0.3)
[2023-04-21] MEDS ORDERED: CALCIUM CHLORIDE 1GM/10ML SYR IV NR (04:00)
[2023-04-21] MEDS ORDERED: INSULIN REGULAR (HUMULIN R) 300UNITS/3ML VIAL IV NR (04:00)
[2023-04-21] MEDS ORDERED: SODIUM BICARBONATE 8.4% 1 MEQ/ML 50ML SYR IV NR (04:00)
[2023-04-21] MEDS ORDERED: ALBUTEROL (0.083%) 2.5MG/3ML NEB HHN NR (04:00)
[2023-04-21] MEDS ORDERED: DEXTROSE 50% WATER 50ML SYRINGE IV NR (04:00)
[2023-04-21 04:48] LABS: CLARITY URINE CLEAR (CLEAR); COLOR URINE YELLOW (YELLOW); KETONES URINE NEGATIVE (NEGATIVE); LEUKOCYTE ESTERASE URINE NEGATIVE (NEGATIVE); NITRITE URINE NEGATIVE (NEGATIVE); OCCULT BLOOD URINE 2+ (NEGATIVE); PH URINE 6.5 (4.5-8.0); PROTEIN URINE 4+ (NEGATIVE); SPECIFIC GRAVITY URINE 1.023 (1.005-1.030); UROBILINOGEN URINE 0.2 E.U./dL (0.2-1.0)
[2023-04-21] MEDS ORDERED: MIDAZOLAM HCL 2 MG/2 ML VIAL IV ONE (05:00)
[2023-04-21] MEDS: SODIUM CHLORIDE 0.9% INJ 3ML FLUSH IVF SCH ×2 (06:00→15:00)
[2023-04-21] MEDS ORDERED: HALOPERIDOL LACTATE 5MG/ML VIAL IM ONE (07:30)
[2023-04-21] MEDS ORDERED: HYDRALAZINE 20MG/ML VIAL IV SCH (08:15)
[2023-04-21] MEDS ORDERED: ACETAMINOPHEN 325MG TABLET PO PRN ×2 (10:15)
[2023-04-21] MEDS ORDERED: ATROPINE SULFATE 1% OPHTH 2ML LEFTEYE SCH (10:15)
[2023-04-21] MEDS ORDERED: HYDRALAZINE 20MG/ML VIAL IV NR (10:15)
[2023-04-21] MEDS ORDERED: DEXTROSE 50% WATER 50ML SYRINGE IV PRN (10:15)
[2023-04-21] MEDS ORDERED: CLONIDINE 0.1MG TABLET PO PRN (10:15)
[2023-04-21] MEDS ORDERED: ZOLPIDEM TARTRATE 5MG TABLET PO PRN (10:15)
[2023-04-21] MEDS ORDERED: ONDANSETRON HCL 4MG/2ML INJ IV PRN (10:15)
[2023-04-21] MEDS ORDERED: DIPHENHYDRAMINE 50MG/ML VIAL IV PRN (10:15)
[2023-04-21] MEDS ORDERED: HYDRALAZINE 20MG/ML VIAL IV PRN (10:15)
[2023-04-21] MEDS: BLOOD SUGAR DIAGNOSTIC STRIP TEST SCH ×3 (13:00→21:43)
[2023-04-21] MEDS ORDERED: DILTIAZEM HCL 30MG TABLET PO SCH (14:00)
[2023-04-21] MEDS: HYDRALAZINE HCL 100MG TABLET PO SCH ×2 (14:27→22:00)
[2023-04-21] MEDS: DILTIAZEM HCL 60MG TABLET PO SCH ×2 (14:28→22:00)
[2023-04-21] MEDS: NITROGLYCERIN OINT 1GM/INCH UDPKT TD SCH ×2 (14:28→22:00)
[2023-04-21 14:32] LABS: HEPATITIS B SURFACE ANTIGEN NEGATIVE
[2023-04-21] MEDS: LORAZEPAM 2MG/ML CPJ IV PRN ×2 (14:48→20:05)
[2023-04-21] MEDS: INSULIN LISPRO 100 UNITS/ML SUBCUT SCH ×3 (14:49→21:42)
[2023-04-21] MEDS: BRIMONIDINE 0.2% OPHTH DROPS 5ML LEFTEYE SCH ×2 (15:00→22:00)
[2023-04-21] MEDS: ENOXAPARIN 30MG/0.3ML SYR SUBCUT SCH (19:53)
[2023-04-21] MEDS: INSULIN GLARGINE 100 UNITS/ML SUBCUT SCH (21:41)
[2023-04-21] MEDS: IMIPRAMINE HCL 25MG TABLET PO SCH (21:44)
[2023-04-21] MEDS: CARVEDILOL 6.25 MG TABLET PO SCH (21:45)
[2023-04-22] VITALS (18 sets, daily range): BP systolic 110–179; BP diastolic 66–107; PULSE 80–107; RESP 11–35; TEMP 97.8–98.6
[2023-04-22] MEDS: DILTIAZEM HCL 60MG TABLET PO SCH ×3 (05:52→21:49)
[2023-04-22] MEDS: NITROGLYCERIN OINT 1GM/INCH UDPKT TD SCH ×4 (05:53→21:50)
[2023-04-22] MEDS: BRIMONIDINE 0.2% OPHTH DROPS 5ML LEFTEYE SCH ×3 (05:55→21:51)
[2023-04-22] MEDS: HYDRALAZINE HCL 100MG TABLET PO SCH ×3 (05:56→21:50)
[2023-04-22 06:20] LABS: BASOPHILS % 0.5 % (0.0-2.0); EOSINOPHILS % 0.6 % (0.0-5.0); HEMATOCRIT. 35.4 % (42.0-52.0); HEMOGLOBIN. 11.9 g/dL (14.0-18.0); LYMPHOCYTES % 14.9 % (20.0-50.0); MEAN CORPUSCULAR HEMOGLOBIN 28.9 pg (28.0-32.0); MEAN PLATELET VOLUME 8.7 fl (7.4-10.4); MONOCYTES % 13.4 % (2.0-8.0); NEUTROPHILS % 70.6 % (40.0-76.0); PLATELET 262 x1000/uL (130-400); RED BLOOD CELL COUNT 4.12 mill/uL (4.7-6.1); RED CELL DISTRIBUTION WIDTH 15.2 % (11.6-14.6)
[2023-04-22] MEDS: SODIUM CHLORIDE 0.9% INJ 3ML FLUSH IVF SCH ×3 (06:44→21:10)
[2023-04-22 07:41] LABS: PHOSPHORUS 4.1 mg/dL (2.5-4.9)
[2023-04-22] MEDS: BLOOD SUGAR DIAGNOSTIC STRIP TEST SCH ×4 (07:51→21:06)
[2023-04-22] MEDS: LORAZEPAM 2MG/ML CPJ IV PRN ×4 (08:05→23:41)
[2023-04-22] MEDS: CARVEDILOL 6.25 MG TABLET PO SCH ×2 (08:34→21:06)
[2023-04-22] MEDS: FOLIC ACID/VITAMIN B COMP W-C TABLET PO SCH (08:34)
[2023-04-22] MEDS: LINAGLIPTIN 5MG TABLET PO SCH (08:35)
[2023-04-22] MEDS: INSULIN LISPRO 100 UNITS/ML SUBCUT SCH ×4 (08:36→21:00)
[2023-04-22] MEDS: ENOXAPARIN 30MG/0.3ML SYR SUBCUT SCH (21:05)
[2023-04-22] MEDS: IMIPRAMINE HCL 25MG TABLET PO SCH (21:06)
[2023-04-22] MEDS: INSULIN GLARGINE 100 UNITS/ML SUBCUT SCH (22:08)
[2023-04-23] VITALS (18 sets, daily range): BP systolic 92–167; BP diastolic 46–93; PULSE 70–103; RESP 15–34; TEMP 97.2–98.7
[2023-04-23] MEDS: DILTIAZEM HCL 60MG TABLET PO SCH ×3 (06:05→23:28)
[2023-04-23] MEDS: HYDRALAZINE HCL 100MG TABLET PO SCH ×3 (06:06→23:26)
[2023-04-23] MEDS: SODIUM CHLORIDE 0.9% INJ 3ML FLUSH IVF SCH ×3 (06:07→23:25)
[2023-04-23] MEDS: NITROGLYCERIN OINT 1GM/INCH UDPKT TD SCH ×3 (06:07→23:39)
[2023-04-23] MEDS: BRIMONIDINE 0.2% OPHTH DROPS 5ML LEFTEYE SCH ×3 (06:07→23:26)
[2023-04-23 07:08] LABS: HEMATOCRIT. 33.6 % (42.0-52.0); HEMOGLOBIN. 11.4 g/dL (14.0-18.0); MEAN CORPUSCULAR HEMOGLOBIN 29.5 pg (28.0-32.0); MEAN CORPUSCULAR VOLUME 86.6 fL (80.0-94.0); MEAN PLATELET VOLUME 9.2 fl (7.4-10.4); PLATELET 272 x1000/uL (130-400); RED BLOOD CELL COUNT 3.88 mill/uL (4.7-6.1); RED CELL DISTRIBUTION WIDTH 15.1 % (11.6-14.6)
[2023-04-23] MEDS: INSULIN LISPRO 100 UNITS/ML SUBCUT SCH ×4 (08:00→21:00)
[2023-04-23] MEDS: BLOOD SUGAR DIAGNOSTIC STRIP TEST SCH ×4 (08:19→21:00)
[2023-04-23] MEDS: FOLIC ACID/VITAMIN B COMP W-C TABLET PO SCH (08:46)
[2023-04-23] MEDS: LINAGLIPTIN 5MG TABLET PO SCH (08:47)
[2023-04-23] MEDS: CARVEDILOL 6.25 MG TABLET PO SCH ×2 (08:47→23:18)
[2023-04-23] MEDS: RISPERIDONE 0.5MG TABLET PO SCH ×3 (08:52→17:30)
[2023-04-23] MEDS: ENOXAPARIN 30MG/0.3ML SYR SUBCUT SCH (19:30)
[2023-04-23] MEDS: INSULIN GLARGINE 100 UNITS/ML SUBCUT SCH (23:00)
[2023-04-23] MEDS: IMIPRAMINE HCL 25MG TABLET PO SCH (23:19)
[2023-04-24] VITALS: BP 118/55; PULSE 76; RESP 20; TEMP 97.4
[2023-04-24 04:00] VITALS: BP 120/56; PULSE 78; RESP 20; TEMP 97.2
[2023-04-24 05:39] LABS: PLATELET ESTIMATE NORMAL
[2023-04-24] MEDS: SODIUM CHLORIDE 0.9% INJ 3ML FLUSH IVF SCH ×3 (06:27→21:48)
[2023-04-24] MEDS: BRIMONIDINE 0.2% OPHTH DROPS 5ML LEFTEYE SCH ×3 (06:28→21:48)
[2023-04-24] MEDS: HYDRALAZINE HCL 100MG TABLET PO SCH ×3 (06:30→21:41)
[2023-04-24] MEDS: NITROGLYCERIN OINT 1GM/INCH UDPKT TD SCH ×3 (06:32→21:41)
[2023-04-24] MEDS: DILTIAZEM HCL 60MG TABLET PO SCH ×3 (06:32→21:40)
[2023-04-24 08:00] VITALS: BP 153/70; PULSE 77; RESP 18; TEMP 98.7
[2023-04-24] MEDS: INSULIN LISPRO 100 UNITS/ML SUBCUT SCH ×4 (08:00→21:47)
[2023-04-24] MEDS: BLOOD SUGAR DIAGNOSTIC STRIP TEST SCH ×4 (08:15→21:24)
[2023-04-24] MEDS: LINAGLIPTIN 5MG TABLET PO SCH (09:39)
[2023-04-24] MEDS: FOLIC ACID/VITAMIN B COMP W-C TABLET PO SCH (09:39)
[2023-04-24] MEDS: CARVEDILOL 6.25 MG TABLET PO SCH ×2 (09:39→21:39)
[2023-04-24 12:00] VITALS: BP 121/65; PULSE 74; RESP 19; TEMP 97.5
[2023-04-24 16:01] VITALS: BP 124/55; PULSE 73; TEMP 98.9
[2023-04-24] MEDS: RISPERIDONE 0.5MG TABLET PO SCH (17:54)
[2023-04-24 20:00] VITALS: BP 135/58; PULSE 74; RESP 16; TEMP 98.8
[2023-04-24] MEDS: IMIPRAMINE HCL 25MG TABLET PO SCH (21:00)
[2023-04-24] MEDS: ENOXAPARIN 30MG/0.3ML SYR SUBCUT SCH (21:37)
[2023-04-24] MEDS: INSULIN GLARGINE 100 UNITS/ML SUBCUT SCH (21:47)
[2023-04-25] VITALS (14 sets, daily range): BP systolic 98–148; BP diastolic 46–82; PULSE 72–88; RESP 6–22; TEMP 97.6–98.9
[2023-04-25] MEDS: LORAZEPAM 2MG/ML CPJ IV PRN (01:35)
[2023-04-25] MEDS: SODIUM CHLORIDE 0.9% INJ 3ML FLUSH IVF SCH ×3 (05:43→22:00)
[2023-04-25] MEDS: DILTIAZEM HCL 60MG TABLET PO SCH ×3 (05:47→23:04)
[2023-04-25] MEDS: NITROGLYCERIN OINT 1GM/INCH UDPKT TD SCH ×3 (05:47→23:05)
[2023-04-25] MEDS: HYDRALAZINE HCL 100MG TABLET PO SCH ×3 (05:48→23:05)
[2023-04-25] MEDS: BRIMONIDINE 0.2% OPHTH DROPS 5ML LEFTEYE SCH ×3 (05:53→23:09)
[2023-04-25 06:53] LABS: BASOPHILS % 0.4 % (0.0-2.0); EOSINOPHILS % 3.1 % (0.0-5.0); HEMATOCRIT. 30.3 % (42.0-52.0); HEMOGLOBIN. 10.2 g/dL (14.0-18.0); LYMPHOCYTES % 13.9 % (20.0-50.0); MEAN CORPUSCULAR HEMOGLOBIN 29.2 pg (28.0-32.0); MEAN CORPUSCULAR VOLUME 86.6 fL (80.0-94.0); MEAN PLATELET VOLUME 9.3 fl (7.4-10.4); MONOCYTES % 13.7 % (2.0-8.0); NEUTROPHILS % 68.9 % (40.0-76.0); PLATELET 318 x1000/uL (130-400); RED CELL DISTRIBUTION WIDTH 15.1 % (11.6-14.6)
[2023-04-25] MEDS: BLOOD SUGAR DIAGNOSTIC STRIP TEST SCH ×4 (07:51→21:00)
[2023-04-25] MEDS: LINAGLIPTIN 5MG TABLET PO SCH (08:58)
[2023-04-25] MEDS: RISPERIDONE 0.5MG TABLET PO SCH (08:58)
[2023-04-25] MEDS: CARVEDILOL 6.25 MG TABLET PO SCH ×2 (09:00→23:04)
[2023-04-25] MEDS: INSULIN LISPRO 100 UNITS/ML SUBCUT SCH ×4 (09:00→23:07)
[2023-04-25] MEDS: FOLIC ACID/VITAMIN B COMP W-C TABLET PO SCH (09:12)
[2023-04-25] MEDS: RISPERIDONE 0.25MG TABLET PO SCH (18:08)
[2023-04-25] MEDS: ENOXAPARIN 30MG/0.3ML SYR SUBCUT SCH (18:33)
[2023-04-25] MEDS: IMIPRAMINE HCL 25MG TABLET PO SCH (23:03)
[2023-04-25] MEDS: INSULIN GLARGINE 100 UNITS/ML SUBCUT SCH (23:07)
[2023-04-26] VITALS: BP 157/71; PULSE 87; RESP 11; TEMP 98.6
[2023-04-26 04:00] VITALS: BP 147/77; PULSE 74; RESP 18; TEMP 98.8
[2023-04-26] MEDS: HYDRALAZINE HCL 100MG TABLET PO SCH ×3 (06:21→21:11)
[2023-04-26] MEDS: BRIMONIDINE 0.2% OPHTH DROPS 5ML LEFTEYE SCH ×3 (06:22→21:12)
[2023-04-26] MEDS: DILTIAZEM HCL 60MG TABLET PO SCH ×3 (06:22→21:12)
[2023-04-26] MEDS: NITROGLYCERIN OINT 1GM/INCH UDPKT TD SCH ×3 (06:22→21:13)
[2023-04-26] MEDS: SODIUM CHLORIDE 0.9% INJ 3ML FLUSH IVF SCH ×3 (06:23→21:13)
[2023-04-26 08:00] VITALS: BP 149/66; PULSE 80; TEMP 98.5
[2023-04-26] MEDS: INSULIN LISPRO 100 UNITS/ML SUBCUT SCH ×4 (08:00→21:14)
[2023-04-26] MEDS: BLOOD SUGAR DIAGNOSTIC STRIP TEST SCH ×5 (08:22→20:43)
[2023-04-26] MEDS: FOLIC ACID/VITAMIN B COMP W-C TABLET PO SCH (08:22)
[2023-04-26] MEDS: LINAGLIPTIN 5MG TABLET PO SCH (08:23)
[2023-04-26] MEDS: CARVEDILOL 6.25 MG TABLET PO SCH ×2 (08:23→21:12)
[2023-04-26] MEDS: RISPERIDONE 0.25MG TABLET PO SCH ×2 (08:23→17:53)
[2023-04-26 12:00] VITALS: BP 154/67; PULSE 83; RESP 20; TEMP 98.6
[2023-04-26 16:00] VITALS: BP 165/77; PULSE 95; RESP 18; TEMP 98.3
[2023-04-26 20:00] VITALS: BP 163/78; PULSE 92; RESP 20; TEMP 98.1
[2023-04-26] MEDS: ENOXAPARIN 30MG/0.3ML SYR SUBCUT SCH (21:11)
[2023-04-26] MEDS: IMIPRAMINE HCL 25MG TABLET PO SCH (21:11)
[2023-04-26] MEDS: INSULIN GLARGINE 100 UNITS/ML SUBCUT SCH (21:15)
[2023-04-27] VITALS (14 sets, daily range): BP systolic 111–180; BP diastolic 60–93; PULSE 74–95; RESP 16–20; TEMP 97.3–98.6
[2023-04-27] MEDS: CLONIDINE 0.2MG TABLET PO PRN (00:16)
[2023-04-27] MEDS: HYDRALAZINE HCL 100MG TABLET PO SCH ×3 (05:26→21:21)
[2023-04-27] MEDS: DILTIAZEM HCL 60MG TABLET PO SCH ×3 (05:26→21:21)
[2023-04-27] MEDS: SODIUM CHLORIDE 0.9% INJ 3ML FLUSH IVF SCH ×3 (05:26→21:20)
[2023-04-27] MEDS: NITROGLYCERIN OINT 1GM/INCH UDPKT TD SCH ×3 (05:26→21:22)
[2023-04-27] MEDS: BRIMONIDINE 0.2% OPHTH DROPS 5ML LEFTEYE SCH ×3 (05:27→21:20)
[2023-04-27] MEDS: BLOOD SUGAR DIAGNOSTIC STRIP TEST SCH ×4 (06:42→21:22)
[2023-04-27] MEDS: INSULIN LISPRO 100 UNITS/ML SUBCUT SCH ×4 (07:22→21:23)
[2023-04-27] MEDS: LINAGLIPTIN 5MG TABLET PO SCH (08:53)
[2023-04-27] MEDS: FOLIC ACID/VITAMIN B COMP W-C TABLET PO SCH (08:53)
[2023-04-27] MEDS: RISPERIDONE 0.25MG TABLET PO SCH ×2 (08:53→17:28)
[2023-04-27] MEDS: CARVEDILOL 6.25 MG TABLET PO SCH ×2 (08:54→21:22)
[2023-04-27] MEDS: IMIPRAMINE HCL 25MG TABLET PO SCH (21:21)
[2023-04-27] MEDS: ENOXAPARIN 30MG/0.3ML SYR SUBCUT SCH (21:21)
[2023-04-27] MEDS: INSULIN GLARGINE 100 UNITS/ML SUBCUT SCH (21:23)
[2023-04-28] VITALS: BP 176/88; PULSE 98; RESP 19; TEMP 97.5
[2023-04-28] MEDS: CLONIDINE 0.2MG TABLET PO PRN (00:03)
[2023-04-28 04:00] VITALS: BP 148/80; PULSE 89; RESP 20; TEMP 97.3
[2023-04-28] MEDS: SODIUM CHLORIDE 0.9% INJ 3ML FLUSH IVF SCH ×3 (05:22→22:12)
[2023-04-28] MEDS: NITROGLYCERIN OINT 1GM/INCH UDPKT TD SCH ×3 (05:22→21:31)
[2023-04-28] MEDS: BRIMONIDINE 0.2% OPHTH DROPS 5ML LEFTEYE SCH ×3 (05:22→21:31)
[2023-04-28] MEDS: HYDRALAZINE HCL 100MG TABLET PO SCH ×3 (05:23→21:30)
[2023-04-28] MEDS: DILTIAZEM HCL 60MG TABLET PO SCH ×3 (05:23→21:29)
[2023-04-28] MEDS: BLOOD SUGAR DIAGNOSTIC STRIP TEST SCH ×4 (06:41→21:14)
[2023-04-28 08:00] VITALS: BP 129/63; PULSE 74; RESP 20; TEMP 97.8
[2023-04-28 08:14] LABS: BASOPHILS % 0.6 % (0.0-2.0); HEMATOCRIT. 29.5 % (42.0-52.0); MEAN CORPUSCULAR HEMOGLOBIN 29.4 pg (28.0-32.0); MEAN CORPUSCULAR VOLUME 86.8 fL (80.0-94.0); MEAN PLATELET VOLUME 8.9 fl (7.4-10.4); MONOCYTES % 12.7 % (2.0-8.0); NEUTROPHILS % 63.7 % (40.0-76.0); PLATELET 343 x1000/uL (130-400); RED CELL DISTRIBUTION WIDTH 14.6 % (11.6-14.6)
[2023-04-28] MEDS: LINAGLIPTIN 5MG TABLET PO SCH (08:53)
[2023-04-28] MEDS: RISPERIDONE 0.25MG TABLET PO SCH ×2 (08:53→17:42)
[2023-04-28] MEDS: FOLIC ACID/VITAMIN B COMP W-C TABLET PO SCH (08:53)
[2023-04-28] MEDS: CARVEDILOL 6.25 MG TABLET PO SCH ×2 (08:54→20:31)
[2023-04-28] MEDS: INSULIN LISPRO 100 UNITS/ML SUBCUT SCH ×4 (08:55→21:25)
[2023-04-28 12:00] VITALS: BP 140/69; PULSE 80; RESP 18; TEMP 96.8
[2023-04-28 16:00] VITALS: BP 147/68; PULSE 64; RESP 20; TEMP 98
[2023-04-28 20:00] VITALS: BP 145/56; PULSE 74; RESP 20; TEMP 97.9
[2023-04-28] MEDS: IMIPRAMINE HCL 25MG TABLET PO SCH (20:31)
[2023-04-28] MEDS: ENOXAPARIN 30MG/0.3ML SYR SUBCUT SCH (20:32)
[2023-04-28] MEDS: INSULIN GLARGINE 100 UNITS/ML SUBCUT SCH (21:26)
[2023-04-29] VITALS (10 sets, daily range): BP systolic 69–177; BP diastolic 43–83; PULSE 70–89; RESP 18–20; TEMP 97.3–99.3
[2023-04-29] MEDS: BRIMONIDINE 0.2% OPHTH DROPS 5ML LEFTEYE SCH ×3 (05:40→21:23)
[2023-04-29] MEDS: HYDRALAZINE HCL 100MG TABLET PO SCH ×3 (05:41→21:24)
[2023-04-29] MEDS: DILTIAZEM HCL 60MG TABLET PO SCH ×3 (05:41→21:22)
[2023-04-29] MEDS: SODIUM CHLORIDE 0.9% INJ 3ML FLUSH IVF SCH ×3 (05:42→21:24)
[2023-04-29] MEDS: NITROGLYCERIN OINT 1GM/INCH UDPKT TD SCH ×3 (05:43→21:25)
[2023-04-29 05:49] LABS: HEMATOCRIT. 30.6 % (42.0-52.0); HEMOGLOBIN. 10.5 g/dL (14.0-18.0); MEAN CORPUSCULAR HEMOGLOBIN 29.7 pg (28.0-32.0); MEAN CORPUSCULAR VOLUME 86.4 fL (80.0-94.0); MEAN PLATELET VOLUME 8.8 fl (7.4-10.4); PLATELET 366 x1000/uL (130-400); RED BLOOD CELL COUNT 3.54 mill/uL (4.7-6.1)
[2023-04-29] MEDS: BLOOD SUGAR DIAGNOSTIC STRIP TEST SCH ×4 (06:12→21:00)
[2023-04-29] MEDS: INSULIN LISPRO 100 UNITS/ML SUBCUT SCH ×4 (08:10→21:22)
[2023-04-29] MEDS: RISPERIDONE 0.25MG TABLET PO SCH ×2 (08:51→17:52)
[2023-04-29] MEDS: FOLIC ACID/VITAMIN B COMP W-C TABLET PO SCH (08:51)
[2023-04-29] MEDS: LINAGLIPTIN 5MG TABLET PO SCH (08:51)
[2023-04-29] MEDS: CARVEDILOL 6.25 MG TABLET PO SCH ×2 (08:51→21:21)
[2023-04-29 11:08] LABS: PLATELET ESTIMATE NORMAL
[2023-04-29] MEDS: IMIPRAMINE HCL 25MG TABLET PO SCH (21:21)
[2023-04-29] MEDS: ENOXAPARIN 30MG/0.3ML SYR SUBCUT SCH (21:21)
[2023-04-29] MEDS: INSULIN GLARGINE 100 UNITS/ML SUBCUT SCH (21:23)
[2023-04-30 00:09] VITALS: BP 149/78; PULSE 86; RESP 20; TEMP 99.1
[2023-04-30 04:00] VITALS: BP 150/71; PULSE 84; RESP 20; TEMP 98.9
[2023-04-30] MEDS: BRIMONIDINE 0.2% OPHTH DROPS 5ML LEFTEYE SCH ×3 (05:32→22:16)
[2023-04-30] MEDS: HYDRALAZINE HCL 100MG TABLET PO SCH ×3 (05:33→22:22)
[2023-04-30] MEDS: DILTIAZEM HCL 60MG TABLET PO SCH ×3 (05:33→22:16)
[2023-04-30] MEDS: SODIUM CHLORIDE 0.9% INJ 3ML FLUSH IVF SCH ×3 (05:33→22:17)
[2023-04-30] MEDS: NITROGLYCERIN OINT 1GM/INCH UDPKT TD SCH ×3 (05:47→22:18)
[2023-04-30] MEDS: BLOOD SUGAR DIAGNOSTIC STRIP TEST SCH ×4 (06:21→21:11)
[2023-04-30] MEDS: INSULIN LISPRO 100 UNITS/ML SUBCUT SCH ×4 (07:51→22:20)
[2023-04-30 08:00] VITALS: BP 131/83; PULSE 78; RESP 18; TEMP 97.9
[2023-04-30] MEDS: CARVEDILOL 6.25 MG TABLET PO SCH ×2 (10:24→22:17)
[2023-04-30] MEDS: FOLIC ACID/VITAMIN B COMP W-C TABLET PO SCH (10:24)
[2023-04-30] MEDS: RISPERIDONE 0.25MG TABLET PO SCH ×2 (10:24→16:51)
[2023-04-30] MEDS: LINAGLIPTIN 5MG TABLET PO SCH (10:24)
[2023-04-30 12:00] VITALS: BP 148/73; PULSE 82; RESP 18; TEMP 98.6
[2023-04-30 16:00] VITALS: BP 143/71; PULSE 91; RESP 20; TEMP 97.4
[2023-04-30] MEDS: ENOXAPARIN 30MG/0.3ML SYR SUBCUT SCH ×2 (18:16→23:35)
[2023-04-30 20:00] VITALS: BP 163/74; PULSE 72; RESP 21; TEMP 97.5
[2023-04-30] MEDS: IMIPRAMINE HCL 25MG TABLET PO SCH (22:17)
[2023-04-30] MEDS: INSULIN GLARGINE 100 UNITS/ML SUBCUT SCH (22:19)
[2023-05-01] VITALS (14 sets, daily range): BP systolic 105–177; BP diastolic 39–86; PULSE 72–95; RESP 16–21; TEMP 97–98; O2SAT 99
[2023-05-01 05:49] LABS: MEAN CORPUSCULAR VOLUME 86.6 fL (80.0-94.0); MEAN PLATELET VOLUME 8.4 fl (7.4-10.4); PLATELET 411 x1000/uL (130-400); RED BLOOD CELL COUNT 3.92 mill/uL (4.7-6.1); RED CELL DISTRIBUTION WIDTH 14.4 % (11.6-14.6)
[2023-05-01] MEDS: BRIMONIDINE 0.2% OPHTH DROPS 5ML LEFTEYE SCH ×2 (05:56→17:05)
[2023-05-01] MEDS: DILTIAZEM HCL 60MG TABLET PO SCH ×2 (05:58→14:12)
[2023-05-01] MEDS: HYDRALAZINE HCL 100MG TABLET PO SCH ×2 (05:59→14:12)
[2023-05-01] MEDS: SODIUM CHLORIDE 0.9% INJ 3ML FLUSH IVF SCH ×2 (05:59→13:20)
[2023-05-01] MEDS: NITROGLYCERIN OINT 1GM/INCH UDPKT TD SCH ×2 (05:59→14:13)
[2023-05-01] MEDS: INSULIN LISPRO 100 UNITS/ML SUBCUT SCH ×3 (07:46→17:06)
[2023-05-01] MEDS: BLOOD SUGAR DIAGNOSTIC STRIP TEST SCH ×3 (07:46→16:54)
[2023-05-01] MEDS: RISPERIDONE 0.25MG TABLET PO SCH ×3 (09:00→17:00)
[2023-05-01] MEDS: FOLIC ACID/VITAMIN B COMP W-C TABLET PO SCH (09:53)
[2023-05-01] MEDS: LINAGLIPTIN 5MG TABLET PO SCH (09:53)
[2023-05-01] MEDS: CARVEDILOL 6.25 MG TABLET PO SCH (11:40)
[2023-05-01 12:13] LABS: PLATELET ESTIMATE NORMAL
== END 2023-05-01 18:05 | disposition home health service (06) | DRG 70 ==
LOC: ER 00:17 → 5EST 04:24 → EDBEDREQTM 04:26 → EDBEDREQ 04:26 → ER 10:10 → 5EST 13:51 → 7WST 04-26 11:48
PROVIDERS: ADMIT Internal Medicine; ATTEND Internal Medicine
PROC: 5A1D70Z Performance of Urinary Filtration, Intermittent, Less than 6 Hours Per Day (ICD-10-PCS; principal; 2023-04-21)
PROC: 5A1D70Z Performance of Urinary Filtration, Intermittent, Less than 6 Hours Per Day (ICD-10-PCS; 2023-04-22)
PROC: 5A1D70Z Performance of Urinary Filtration, Intermittent, Less than 6 Hours Per Day (ICD-10-PCS; 2023-04-24)
PROC: 4A00X4Z Measurement of Central Nervous Electrical Activity, External Approach (ICD-10-PCS; 2023-04-25)
PROC: 5A1D70Z Performance of Urinary Filtration, Intermittent, Less than 6 Hours Per Day (ICD-10-PCS; 2023-04-27)
PROC: 5A1D70Z Performance of Urinary Filtration, Intermittent, Less than 6 Hours Per Day (ICD-10-PCS; 2023-04-29)
PROC: 5A1D70Z Performance of Urinary Filtration, Intermittent, Less than 6 Hours Per Day (ICD-10-PCS; 2023-04-30)
DX: G93.41 Metabolic encephalopathy (principal); N18.6 End stage renal disease; I12.0 Hypertensive chronic kidney disease with stage 5 chronic kidney disease or end stage renal disease; E87.5 Hyperkalemia; E11.65 Type 2 diabetes mellitus with hyperglycemia; D63.8 Anemia in other chronic diseases classified elsewhere; E11.22 Type 2 diabetes mellitus with diabetic chronic kidney disease; F32.A Depression, unspecified; R62.7 Adult failure to thrive; R29.6 Repeated falls; Z96.649 Presence of unspecified artificial hip joint; F29 Unspecified psychosis not due to a substance or known physiological condition; Z91.158 Patient's noncompliance with renal dialysis for other reason; Z85.46 Personal history of malignant neoplasm of prostate; Z90.79 Acquired absence of other genital organ(s); Z90.49 Acquired absence of other specified parts of digestive tract; Z99.2 Dependence on renal dialysis
CPT/HCPCS: 36415; 71045; 80048; 80053; 81003; 82010; 82962; 83735; 84100; 84132; 84484; 85025; 86705; 86709; 86803; 87340; 90935; 93005; 94644; 95816; 97110; 97116; 97162; 99291; A6261; J0360; J1630; J1650; J1815; J2060; J2250; J3490

== ENCOUNTER 2024-02-02 22:56 | Inpatient (IN) | payer OTHER, BC ==
[~2024-02-02] VITALS: Ht 177.8 cm; Wt 91.8 kg
[2024-02-02 23:00] VITALS: PULSE 66; RESP 17
[2024-02-02 23:26] LABS: BG BASE EXCESS -6.7 mmol/L (-2.0-2.0); BG CARBOXYHEMOGLOBIN 0.1 % (0.5-1.5); BG DEOXYHEMOGLOBIN 0.6 % (0.0-5.0); BG FRACTION INSPIRED OXYGEN 100; BG HCO3 ACT 18.3 mmol/L (22.0-26.0); BG METHEMOGLOBIN 0.2 % (0.0-1.5); BG OXYGEN SATURATION 99.4 % (92.0-98.5); BG OXYHEMOGLOBIN 99.1 % (94.0-97.0); BG PCO2 34.4 mmHg (35.0-45.0); BG PH 7.343 (7.350-7.450); BG PO2 346.8 mmHg (75.0-100.0); BG SAMPLE SITE RIGHT RADIAL; BG TOTAL HEMOGLOBIN 9.9 g/dL (12.0-18.0); BG TOTAL RESPIRATORY RATE 17 b/min; BG VENT MODE VENT - AC
[2024-02-02 23:47] LABS: BASOPHILS % 0.5 % (0.0-2.0); EOSINOPHILS % 0.9 % (0.0-5.0); HEMATOCRIT. 28.4 % (42.0-52.0); HEMOGLOBIN. 9.1 g/dL (14.0-18.0); LYMPHOCYTES % 15.8 % (20.0-50.0); MEAN CORPUSCULAR HEMOGLOBIN 31.8 pg (28.0-32.0); MEAN CORPUSCULAR VOLUME 99.4 fL (80.0-94.0); MEAN PLATELET VOLUME 8.2 fl (7.4-10.4); MONOCYTES % 9.7 % (2.0-8.0); NEUTROPHILS % 73.1 % (40.0-76.0); PLATELET 213 x1000/uL (130-400); RED BLOOD CELL COUNT 2.86 mill/uL (4.7-6.1); RED CELL DISTRIBUTION WIDTH 19.1 % (11.6-14.6); WHITE BLOOD COUNT 9.3 x1000/uL (4.5-11.0)
[2024-02-03] VITALS (83 sets, daily range): BP systolic 105–148; BP diastolic 60–85; PULSE 66–91; RESP 15–23; TEMP 96–98
[2024-02-03 00:03] LABS: D-DIMER 9.61 mg/L FEU (<0.50); INR 1.2
[2024-02-03 00:08] LABS: ALANINE AMINOTRANSFERASE 390 IU/L (10-49); ALBUMIN 3.8 g/dL (3.2-4.8); ASPARTATE AMINOTRANSFERASE 441 IU/L (<34); BILIRUBIN TOTAL 0.7 mg/dL (0.1-1.0); CALCIUM 9.7 mg/dL (8.7-10.4); CARBON DIOXIDE 21 mEq/L (21-32); CHLORIDE 97 mEq/L (98-107); GLUCOSE 207 mg/dL (70-105); POTASSIUM 5.7 mEq/L (3.5-5.1); SODIUM 134 mEq/L (136-145); UREA NITROGEN BLOOD 58 mg/dL (9-23)
[2024-02-03] MEDS: SODIUM CHLORIDE 0.9% 500 ML IV STA (00:26)
[2024-02-03] MEDS: NOREPINEPHRINE 8MG/250ML PMX 250 ML IV STA (00:26)
[2024-02-03 00:30] LABS: LACTIC ACID 6.4 mmol/L (0.4-2.0)
[2024-02-03 00:31] LABS: CREATININE 9.6 mg/dL (0.6-1.3); TROPONIN I HIGH SENSITIVITY 164 ng/L (3.0-53)
[2024-02-03] MEDS ORDERED: MIDAZOLAM 100MG/100ML PMX 100 ML IV PRN (00:45)
[2024-02-03 01:25] LABS: TROPONIN I HIGH SENSITIVITY 149 ng/L (3.0-53)
[2024-02-03] MEDS: CALCIUM CHLORIDE 1GM/10ML SYR IV NR (03:11)
[2024-02-03] MEDS: DEXTROSE 50% WATER 50ML SYRINGE IV NR (03:35)
[2024-02-03 03:37] LABS: TROPONIN I HIGH SENSITIVITY 197 ng/L (3.0-53)
[2024-02-03] MEDS: INSULIN REGULAR (HUMULIN R) 300UNITS/3ML VIAL IV NR (03:39)
[2024-02-03] MEDS: SODIUM BICARBONATE 8.4% 1 MEQ/ML 50ML SYR IV NR (03:40)
[2024-02-03] MEDS: VANCOMYCIN 1G PREMIX 200 ML IV NR (04:30)
[2024-02-03] MEDS: PIPERACILLIN/TAZO 3.375G/50ML 50 ML IV NR (04:30)
[2024-02-03] MEDS: VANCOMYCIN 1G PREMIX 200 ML IV ONE (04:30)
[2024-02-03] MEDS: PIPERACILLIN/TAZO 3.375G/50ML 50 ML IV ONE (04:30)
[2024-02-03] MEDS: MIDAZOLAM 100MG/100ML PMX 100 ML IV PRN ×2 (07:00→10:52)
[2024-02-03] MEDS ORDERED: NOREPINEPHRINE 8MG/250ML PMX 250 ML IV PRN (09:30)
[2024-02-03] MEDS ORDERED: FENTANYL 2500MCG/250ML PMX 250 ML IV PRN (10:15)
[2024-02-03] MEDS ORDERED: CALC667C PO (10:19)
[2024-02-03] MEDS ORDERED: DOCU-150 PO (10:19)
[2024-02-03] MEDS ORDERED: CARSR90 PO (10:19)
[2024-02-03] MEDS ORDERED: PRED5DRO22 LEFTEYE (10:19)
[2024-02-03] MEDS ORDERED: RISP0.2514 PO (10:19)
[2024-02-03] MEDS: PANTOPRAZOLE SODIUM 40 MG/VIAL IV SCH (10:47)
[2024-02-03] MEDS: BLOOD SUGAR DIAGNOSTIC STRIP TEST SCH ×2 (11:30→16:30)
[2024-02-03] MEDS ORDERED: DEXTROSE 50% WATER 50ML SYRINGE IV PRN ×2 (11:30→14:00)
[2024-02-03] MEDS: INSULIN LISPRO 100 UNITS/ML SUBCUT SCH ×2 (11:30→17:00)
[2024-02-03] MEDS ORDERED: ONDANSETRON HCL 4MG/2ML INJ IV PRN (14:00)
[2024-02-03] MEDS ORDERED: ACETAMINOPHEN 650MG SUPP PR PRN ×2 (14:00)
[2024-02-03] MEDS: SODIUM CHLORIDE 0.9% INJ 3ML FLUSH IVF SCH (14:41)
[2024-02-03 16:00] LABS: CALCIUM 9.2 mg/dL (8.7-10.4); POTASSIUM 4.4 mEq/L (3.5-5.1)
[2024-02-03 16:02] LABS: PHOSPHORUS 6.4 mg/dL (2.5-4.9)
[2024-02-03 16:12] LABS: CREATININE 7.8 mg/dL (0.6-1.3)
[2024-02-03] MEDS: VANCOMYCIN 500MG/100ML IV NR (17:30)
[2024-02-03 17:40] LABS: HEPATITIS A AB IGM NEGATIVE (Negative); HEPATITIS B CORE AB IGM NEGATIVE (Negative); HEPATITIS B SURFACE ANTIGEN NEGATIVE (Negative); HEPATITIS C AB NON REACTIVE (Neg) (Negative)
[2024-02-03] MEDS ORDERED: PIPERACILLIN/TAZO 3.375G/50ML IV SCH (18:00)
[2024-02-03] MEDS: PIPERACILLIN/TAZO 3.375G/50ML IV SCH (18:19)
[2024-02-04] VITALS (91 sets, daily range): BP systolic 92–150; BP diastolic 60–87; PULSE 82–107; RESP 16–34; TEMP 97–102.3; O2SAT 100
[2024-02-04 04:52] LABS: BASOPHILS % 0.3 % (0.0-2.0); EOSINOPHILS % 0.6 % (0.0-5.0); HEMATOCRIT. 30.4 % (42.0-52.0); LYMPHOCYTES % 7.5 % (20.0-50.0); MEAN CORPUSCULAR HEMOGLOBIN 31.4 pg (28.0-32.0); MEAN CORPUSCULAR VOLUME 95.2 fL (80.0-94.0); MEAN PLATELET VOLUME 8.7 fl (7.4-10.4); MONOCYTES % 11.1 % (2.0-8.0); NEUTROPHILS % 80.5 % (40.0-76.0); PLATELET 249 x1000/uL (130-400); RED BLOOD CELL COUNT 3.19 mill/uL (4.7-6.1); RED CELL DISTRIBUTION WIDTH 18.2 % (11.6-14.6); WHITE BLOOD COUNT 9.3 x1000/uL (4.5-11.0)
[2024-02-04 05:06] LABS: CALCIUM 9.6 mg/dL (8.7-10.4); POTASSIUM 5.2 mEq/L (3.5-5.1)
[2024-02-04 05:20] LABS: CREATININE 8.7 mg/dL (0.6-1.3)
[2024-02-04] MEDS: FAMOTIDINE 20MG/2ML VIAL IV SCH (08:43)
[2024-02-04] MEDS: ENOXAPARIN 30MG/0.3ML SYR SUBCUT SCH (08:45)
[2024-02-04] MEDS: ENOXAPARIN 100MG/ML SYR SUBCUT SCH (10:56)
[2024-02-04] MEDS: ASPIRIN 81MG EC TABLET PO SCH (10:58)
[2024-02-04] MEDS: NOREPINEPHRINE 8MG/250ML PMX 250 ML IV PRN (11:34)
[2024-02-04] MEDS: BLOOD SUGAR DIAGNOSTIC STRIP TEST SCH (23:53)
[2024-02-05] VITALS (86 sets, daily range): BP systolic 60–120; BP diastolic 47–83; PULSE 91–105; RESP 16–32; TEMP 98–100
[2024-02-05] MEDS: INSULIN LISPRO 100 UNITS/ML SUBCUT SCH
[2024-02-05 05:25] LABS: BASOPHILS % 0.6 % (0.0-2.0); EOSINOPHILS % 0.1 % (0.0-5.0); HEMATOCRIT. 28.1 % (42.0-52.0); HEMOGLOBIN. 9.1 g/dL (14.0-18.0); LYMPHOCYTES % 13.7 % (20.0-50.0); MEAN CORPUSCULAR HEMOGLOBIN 31.3 pg (28.0-32.0); MEAN CORPUSCULAR HGB CONC 32.3 g/dL (31.0-37.0); MEAN CORPUSCULAR VOLUME 96.8 fL (80.0-94.0); MEAN PLATELET VOLUME 8.3 fl (7.4-10.4); MONOCYTES % 17.6 % (2.0-8.0); PLATELET 238 x1000/uL (130-400); RED BLOOD CELL COUNT 2.91 mill/uL (4.7-6.1); RED CELL DISTRIBUTION WIDTH 18.1 % (11.6-14.6); WHITE BLOOD COUNT 9.9 x1000/uL (4.5-11.0)
[2024-02-05 05:26] LABS: CALCIUM 9.1 mg/dL (8.7-10.4); POTASSIUM 4.5 mEq/L (3.5-5.1)
[2024-02-05 05:34] LABS: DIFFERENTIAL COMMENT 1
[2024-02-05 05:55] LABS: CREATININE 7.9 mg/dL (0.6-1.3)
[2024-02-05] MEDS: CARVEDILOL 3.125 MG TABLET NG SCH (12:44)
[2024-02-05 13:25] LABS: BG BASE EXCESS 0.2 mmol/L (-2.0-2.0); BG CARBOXYHEMOGLOBIN 0.3 % (0.5-1.5); BG DEOXYHEMOGLOBIN 1.3 % (0.0-5.0); BG FRACTION INSPIRED OXYGEN 40; BG HCO3 ACT 24.7 mmol/L (22.0-26.0); BG METHEMOGLOBIN 0.2 % (0.0-1.5); BG OXYGEN SATURATION 98.7 % (92.0-98.5); BG OXYHEMOGLOBIN 98.2 % (94.0-97.0); BG PCO2 39.4 mmHg (35.0-45.0); BG PH 7.415 (7.350-7.450); BG PO2 160.5 mmHg (75.0-100.0); BG SAMPLE SITE RIGHT RADIAL; BG VENT MODE VENT - SIMV
[2024-02-05] MEDS: VANCOMYCIN 500MG/100ML IV NR (14:31)
[2024-02-05] MEDS: BRIMONIDINE 0.2% OPHTH DROPS 5ML LEFTEYE SCH (14:31)
[2024-02-06] VITALS (70 sets, daily range): BP systolic 102–132; BP diastolic 56–71; PULSE 95–107; RESP 13–42; TEMP 98–99.2
[2024-02-06] MEDS: POLYVINYL ALCOHOL OPHTH DROPS 15ML BOTHEYE SCH (00:02)
[2024-02-06] MEDS: IOHEXOL-350 100 ML BOTTLE ONE (05:18)
[2024-02-06 05:22] LABS: HEMATOCRIT. 29.2 % (42.0-52.0); HEMOGLOBIN. 9.4 g/dL (14.0-18.0); MEAN CORPUSCULAR HEMOGLOBIN 31.1 pg (28.0-32.0); MEAN CORPUSCULAR HGB CONC 32.4 g/dL (31.0-37.0); MEAN CORPUSCULAR VOLUME 96.1 fL (80.0-94.0); MEAN PLATELET VOLUME 8.2 fl (7.4-10.4); PLATELET 238 x1000/uL (130-400); RED BLOOD CELL COUNT 3.04 mill/uL (4.7-6.1); RED CELL DISTRIBUTION WIDTH 18.1 % (11.6-14.6); WHITE BLOOD COUNT 9.9 x1000/uL (4.5-11.0)
[2024-02-06 05:44] LABS: CALCIUM 9.1 mg/dL (8.7-10.4)
[2024-02-06 05:52] LABS: CREATININE 8.9 mg/dL (0.6-1.3)
[2024-02-06 06:11] LABS: DIFFERENTIAL COMMENT 1
[2024-02-06] MEDS: LIDOCAINE HCL 1% 10 MG/ML 10ML VIAL ONE (09:42)
[2024-02-06 15:55] LABS: ANISOCYTOSIS 1+; PLATELET ESTIMATE NORMAL
[2024-02-06] MEDS ORDERED: NALOXONE HCL 0.4MG/ML VIAL IV PRN (20:30)
[2024-02-07] VITALS (80 sets, daily range): BP systolic 95–128; BP diastolic 52–73; PULSE 97–106; RESP 0–36; TEMP 98.9–99.5
[2024-02-07 05:11] LABS: HEMATOCRIT. 29.6 % (42.0-52.0); HEMOGLOBIN. 9.5 g/dL (14.0-18.0); MEAN CORPUSCULAR HEMOGLOBIN 30.4 pg (28.0-32.0); MEAN CORPUSCULAR HGB CONC 32.1 g/dL (31.0-37.0); MEAN CORPUSCULAR VOLUME 94.8 fL (80.0-94.0); MEAN PLATELET VOLUME 8.6 fl (7.4-10.4); PLATELET 234 x1000/uL (130-400); RED BLOOD CELL COUNT 3.12 mill/uL (4.7-6.1); RED CELL DISTRIBUTION WIDTH 17.7 % (11.6-14.6); WHITE BLOOD COUNT 7.5 x1000/uL (4.5-11.0)
[2024-02-07 05:18] LABS: DIFFERENTIAL COMMENT 1
[2024-02-07 05:32] LABS: CALCIUM 8.9 mg/dL (8.7-10.4); POTASSIUM 4.9 mEq/L (3.5-5.1)
[2024-02-07 05:42] LABS: CREATININE 7.7 mg/dL (0.6-1.3)
[2024-02-07 09:05] LABS: BG BASE EXCESS -1.7 mmol/L (-2.0-2.0); BG CARBOXYHEMOGLOBIN 0.4 % (0.5-1.5); BG DEOXYHEMOGLOBIN 0.9 % (0.0-5.0); BG FRACTION INSPIRED OXYGEN 40; BG HCO3 ACT 22.1 mmol/L (22.0-26.0); BG METHEMOGLOBIN 0.3 % (0.0-1.5); BG OXYGEN SATURATION 99.1 % (92.0-98.5); BG OXYHEMOGLOBIN 98.4 % (94.0-97.0); BG PCO2 33.4 mmHg (35.0-45.0); BG PH 7.438 (7.350-7.450); BG PO2 148.7 mmHg (75.0-100.0); BG SAMPLE SITE RIGHT RADIAL; BG TOTAL HEMOGLOBIN 9.6 g/dL (12.0-18.0); BG VENT MODE VENT - SIMV
[2024-02-07 16:00] LABS: NUCLEATED RED BLOOD CELLS 1 /100 WBC
[2024-02-07 16:01] LABS: ANISOCYTOSIS 1+; PLATELET ESTIMATE NORMAL
[2024-02-08] VITALS (68 sets, daily range): BP systolic 95–133; BP diastolic 51–80; PULSE 96–114; RESP 12–36; TEMP 97.8–101.7
[2024-02-08 05:46] LABS: HEMATOCRIT. 26.8 % (42.0-52.0); HEMOGLOBIN. 8.9 g/dL (14.0-18.0); MEAN CORPUSCULAR HGB CONC 33.1 g/dL (31.0-37.0); MEAN CORPUSCULAR VOLUME 93.7 fL (80.0-94.0); MEAN PLATELET VOLUME 8.7 fl (7.4-10.4); PLATELET 318 x1000/uL (130-400); RED BLOOD CELL COUNT 2.86 mill/uL (4.7-6.1); RED CELL DISTRIBUTION WIDTH 17.6 % (11.6-14.6); WHITE BLOOD COUNT 7.9 x1000/uL (4.5-11.0)
[2024-02-08 06:13] LABS: CALCIUM 9.1 mg/dL (8.7-10.4); CARBON DIOXIDE 22 mEq/L (21-32); CHLORIDE 100 mEq/L (98-107); GLUCOSE 208 mg/dL (70-105); PHOSPHORUS 6.4 mg/dL (2.5-4.9); POTASSIUM 4.7 mEq/L (3.5-5.1); SODIUM 136 mEq/L (136-145); UREA NITROGEN BLOOD 81 mg/dL (9-23)
[2024-02-08 06:18] LABS: CREATININE 9.1 mg/dL (0.6-1.3)
[2024-02-08 06:29] LABS: DIFFERENTIAL COMMENT 1
[2024-02-08 09:31] LABS: BG BASE EXCESS -2.9 mmol/L (-2.0-2.0); BG CARBOXYHEMOGLOBIN 0.3 % (0.5-1.5); BG DEOXYHEMOGLOBIN 1.1 % (0.0-5.0); BG FRACTION INSPIRED OXYGEN 40; BG METHEMOGLOBIN 0.3 % (0.0-1.5); BG OXYGEN SATURATION 98.9 % (92.0-98.5); BG OXYHEMOGLOBIN 98.3 % (94.0-97.0); BG PH 7.422 (7.350-7.450); BG PO2 172.6 mmHg (75.0-100.0); BG SAMPLE SITE RIGHT RADIAL; BG TOTAL HEMOGLOBIN 9.5 g/dL (12.0-18.0); BG TOTAL RESPIRATORY RATE 31 b/min; BG VENT MODE VENT - SIMV
[2024-02-08 15:53] LABS: ANISOCYTOSIS 1+; PLATELET ESTIMATE NORMAL
[2024-02-08] MEDS: MORPHINE SULFATE 2 MG/ML CPJ (NOT FOR IM USE) IV PRN (16:18)
[2024-02-08] MEDS: ACETAMINOPHEN 650MG/20.3ML UDC PO PRN (20:12)
[2024-02-09] VITALS (53 sets, daily range): BP systolic 101–125; BP diastolic 56–78; PULSE 91–103; RESP 0–31; TEMP 98.6–99.2
[2024-02-09] MEDS: ENOXAPARIN 100MG/ML SYR SUBCUT SCH (09:54)
[2024-02-10] VITALS (39 sets, daily range): BP systolic 78–124; BP diastolic 46–80; PULSE 87–103; RESP 0–39; TEMP 97.3–101.3
[2024-02-10] MEDS: MORPHINE SULFATE 250 MG in DEXT 5% WATER 225 ML IV PRN (13:17)
== END 2024-02-10 23:55 | DRG 207 ==
LOC: ER 23:07 → MICUSO 02-03 03:32 → EDBEDREQ 02-03 03:42 → 6EST 02-10 15:20
PROVIDERS: ADMIT Internal Medicine; ATTEND Internal Medicine
PROC: 5A1955Z Respiratory Ventilation, Greater than 96 Consecutive Hours (ICD-10-PCS; principal; 2024-02-03)
PROC: 0BH17EZ Insertion of Endotracheal Airway into Trachea, Via Natural or Artificial Opening (ICD-10-PCS; 2024-02-03)
PROC: 05H533Z Insertion of Infusion Device into Right Subclavian Vein, Percutaneous Approach (ICD-10-PCS; 2024-02-03)
PROC: B546ZZA Ultrasonography of Right Subclavian Vein, Guidance (ICD-10-PCS; 2024-02-03)
PROC: 5A12012 Performance of Cardiac Output, Single, Manual (ICD-10-PCS; 2024-02-03)
PROC: 5A1D70Z Performance of Urinary Filtration, Intermittent, Less than 6 Hours Per Day (ICD-10-PCS; 2024-02-03)
PROC: 4A00X4Z Measurement of Central Nervous Electrical Activity, External Approach (ICD-10-PCS; 2024-02-04)
PROC: 5A1D70Z Performance of Urinary Filtration, Intermittent, Less than 6 Hours Per Day (ICD-10-PCS; 2024-02-04)
PROC: 5A1D70Z Performance of Urinary Filtration, Intermittent, Less than 6 Hours Per Day (ICD-10-PCS; 2024-02-06)
DX: J96.01 Acute respiratory failure with hypoxia (principal); K72.00 Acute and subacute hepatic failure without coma; G93.41 Metabolic encephalopathy; N18.6 End stage renal disease; I13.2 Hypertensive heart and chronic kidney disease with heart failure and with stage 5 chronic kidney disease, or end stage renal disease; G93.1 Anoxic brain damage, not elsewhere classified; I67.82 Cerebral ischemia; G95.20 Unspecified cord compression; J98.11 Atelectasis; I50.32 Chronic diastolic (congestive) heart failure; I46.9 Cardiac arrest, cause unspecified; I27.20 Pulmonary hypertension, unspecified; G47.33 Obstructive sleep apnea (adult) (pediatric); Z99.2 Dependence on renal dialysis; Z96.642 Presence of left artificial hip joint; E11.22 Type 2 diabetes mellitus with diabetic chronic kidney disease; D63.8 Anemia in other chronic diseases classified elsewhere; I07.1 Rheumatic tricuspid insufficiency; Z66 Do not resuscitate; Z51.5 Encounter for palliative care; M19.90 Unspecified osteoarthritis, unspecified site; I25.5 Ischemic cardiomyopathy; I25.10 Atherosclerotic heart disease of native coronary artery without angina pectoris; H54.7 Unspecified visual loss; E87.5 Hyperkalemia; E78.5 Hyperlipidemia, unspecified; F99 Mental disorder, not otherwise specified; I25.2 Old myocardial infarction; Z90.79 Acquired absence of other genital organ(s); Z90.49 Acquired absence of other specified parts of digestive tract; Z85.46 Personal history of malignant neoplasm of prostate; Z79.899 Other long term (current) drug therapy; Z79.4 Long term (current) use of insulin
CPT/HCPCS: 36415; 36573; 36600; 71045; 71275; 80048; 80053; 80202; 82375; 82805; 82962; 83036; 83605; 83735; 83880; 84100; 84484; 85025; 85379; 86705; 86709; 86850; 86900; 87070; 87340; 90935; 93005; 93306; 93970; 94002; 94003; 95816; 99291; A6261; C1725; C9113; J1650; J1815; J2250; J2270; J2543; J3370; J3490; J7040; Q9967